=== PATIENT | male | born 1955 | race Caucasian/White ===

== ENCOUNTER 2017-08-29 10:31 | Outpatient (CLI) | payer BC ==
[2017-08-29 10:30] VITALS: BP 118/79
[~2017-08-29 10:31] MED LIST: FAMO40TA73 PO; HYDR-3965 PO
[2017-08-29 11:09] VITALS: BP 118/79
== END 2017-08-29 11:30 | disposition home or self-care (01) ==
LOC: ORTHO 10:31
PROVIDERS: ATTEND Nurse Practitioner Family
DX: S42.202A Unspecified fracture of upper end of left humerus, initial encounter for closed fracture (principal)
CPT/HCPCS: 99213

== ENCOUNTER 2017-10-10 09:37 | Outpatient (CLI) | payer BC ==
[2017-10-10 09:36] VITALS: BP 139/74
[~2017-10-10 09:37] MED LIST changes: -HYDR-3965 PO
== END 2017-10-10 10:05 | disposition home or self-care (01) ==
LOC: ORTHO 09:37
PROVIDERS: ATTEND Nurse Practitioner Family
DX: S42.212D Unspecified displaced fracture of surgical neck of left humerus, subsequent encounter for fracture with routine healing (principal); F17.210 Nicotine dependence, cigarettes, uncomplicated; F32.9 Major depressive disorder, single episode, unspecified; N40.0 Benign prostatic hyperplasia without lower urinary tract symptoms; Z88.6 Allergy status to analgesic agent; X58.XXXD Exposure to other specified factors, subsequent encounter
CPT/HCPCS: 73030

== ENCOUNTER 2017-11-07 09:03 | Outpatient (CLI) | payer BC ==
[2017-11-07 09:12] VITALS: BP 136/75
== END 2017-11-07 09:35 | disposition home or self-care (01) ==
LOC: ORTHO 09:03
PROVIDERS: ATTEND Nurse Practitioner Family
DX: S42.215D Unspecified nondisplaced fracture of surgical neck of left humerus, subsequent encounter for fracture with routine healing (principal); F17.210 Nicotine dependence, cigarettes, uncomplicated; F32.9 Major depressive disorder, single episode, unspecified; N40.0 Benign prostatic hyperplasia without lower urinary tract symptoms; F12.90 Cannabis use, unspecified, uncomplicated; Z88.6 Allergy status to analgesic agent; X58.XXXD Exposure to other specified factors, subsequent encounter
CPT/HCPCS: 73030; 99213

== ENCOUNTER 2017-12-12 08:26 | Outpatient (CLI) | payer BC | END 2017-12-12 08:45 | disposition home or self-care (01) | LOC: ORTHO 08:26 | PROVIDERS: ATTEND Nurse Practitioner Family | DX: S42.215D Unspecified nondisplaced fracture of surgical neck of left humerus, subsequent encounter for fracture with routine healing (principal); F17.210 Nicotine dependence, cigarettes, uncomplicated; F12.90 Cannabis use, unspecified, uncomplicated; F32.9 Major depressive disorder, single episode, unspecified; N40.0 Benign prostatic hyperplasia without lower urinary tract symptoms; Z88.6 Allergy status to analgesic agent; X58.XXXD Exposure to other specified factors, subsequent encounter | CPT/HCPCS: 73030 ==

== ENCOUNTER 2018-11-11 11:19 | Inpatient (IN) | payer MEDICARE, OTHER ==
[2018-11-11] VITALS (15 sets, daily range): BP systolic 145–188; BP diastolic 66–103
[~2018-11-11] VITALS: Ht 175.3 cm; Wt 67.2 kg
--- NOTE | 2018-11-11 11:24 | NUR ---
BIB RELATIVE WHO STATES THAT PATIENT WAS FOUND SITTING IN A CHAIR AT HOME, LETHARGY, UNRESPONSIVE-TEMP 96.3 R, RR 18, CHEST CLEAR, BP 146/84. INCONTINENT OF URINE ON ARRIVAL. BG 73. ANSWERS QUESTIONS BUT LETHARGIC. PALE. SKIN COOL AND DRY.
[2018-11-11] MEDS ORDERED: normal saline 1000ML IV soln IVB ONE (11:30)
[2018-11-11 12:05] LABS: BASOPHILS # (AUTO) 0.1 X10'3 (0-0.2); BASOPHILS % (AUTO) 0.5 % (0-1); EOSINOPHILS # (AUTO) 0.1 X10'3 (0-0.9); EOSINOPHILS % (AUTO) 0.8 % (0-6); HEMOGLOBIN 7.4 g/dl (14.0-17.9); LYMPHOCYTES # (AUTO) 1.1 X10'3 (1.1-4.8); LYMPHOCYTES % (AUTO) 8.8 % (21-51); MEAN CORPUSCULAR HEMOGLOBIN 32.5 PG (27.0-31.0); MEAN CORPUSCULAR HGB CONC 34.6 g/dL (33.0-36.5); MEAN CORPUSCULAR VOLUME 93.9 FL (78-98); MEAN PLATELET VOLUME 7.2 FL (7.4-10.4); MONOCYTES # (AUTO) 0.3 X10'3 (0-0.9); MONOCYTES % (AUTO) 2.1 % (2-12); NEUTROPHILS # (AUTO) 11.3 X10'3 (1.8-7.7); NEUTROPHILS % (AUTO) 87.8 % (42-75); PLATELET COUNT 271 X10'3 (140-440); RED BLOOD COUNT 2.27 X10'6 (4.70-6.10); WHITE BLOOD COUNT 12.8 X10'3 (4.5-11.0)
[2018-11-11] MEDS ORDERED: CefTRIAXone/D5W-Rocephin 1gm 50 ML IV ONE (12:10)
[2018-11-11] MEDS ORDERED: normal saline 1000ML IV soln IV ONE (12:10)
[2018-11-11 12:12] LABS: HEMATOCRIT 21.3 % (42.0-52.0)
[2018-11-11 12:20] LABS: PARTIAL THROMBOPLASTIN TIME 27 SECONDS (22-32); PROTHROMBIN TIME 10.2 SECONDS (9.0-12.0)
[2018-11-11 12:21] LABS: ALANINE AMINOTRANSFERASE 17 U/L (12-78); ALBUMIN 2.9 G/DL (3.4-5.0); ALBUMIN/GLOBULIN RATIO 0.9 (1.1-1.5); ALKALINE PHOSPHATASE 97 IU/L (46-116); ANION GAP 12 (8-16); ASPARTATE AMINO TRANSFERASE 17 U/L (10-37); BILIRUBIN,TOTAL 0.8 MG/DL (0.1-1.0); BLOOD UREA NITROGEN 19 MG/DL (7-18); BUN/CREATININE RATIO 13.4 (5.4-32.0); CALCIUM 8.6 MG/DL (8.5-10.1); CHLORIDE 102 MMOL/L (99-107); CREATININE 1.42 MG/DL (0.60-1.10); GLUCOSE 227 MG/DL (70-104); POTASSIUM 4.5 MMOL/L (3.5-5.1); SODIUM 135 MMOL/L (135-145); TOTAL CARBON DIOXIDE 21.1 MMOL/L (24-32); TOTAL PROTEIN 6.2 G/DL (6.4-8.2); eGFR 50 ML/MIN
[2018-11-11 12:22] LABS: AMMONIA < 10 UMOL/L (11-32)
[2018-11-11 12:24] LABS: ETHANOL < 0.010 GM/DL (0.0-0.010); TROPONIN I < 0.04 NG/ML (0.0-0.05)
[2018-11-11 12:39] LABS: LACTIC SEPSIS 4.5 MMOL/L (0.4-2.0)
[2018-11-11] MEDS ORDERED: ARIP10TA17 PO (13:57)
[2018-11-11] MEDS ORDERED: GABA-532 PO (13:57)
[2018-11-11] MEDS ORDERED: PRAM0.258 PO (13:57)
[2018-11-11] MEDS ORDERED: DULO60CA64 PO (13:57)
[2018-11-11] MEDS ORDERED: HYDR-3972 PO (13:57)
[2018-11-11] MEDS ORDERED: hydrALAZINE 20mg/ml inj. IV PRN (14:05)
[2018-11-11] MEDS ORDERED: fentaNYL/PF 50MCG/1 ML 2ML syringe IV PRN ×2 (14:05)
[2018-11-11] MEDS ORDERED: morphine 4 MG/ML inj SYRINge IV PRN ×2 (14:05)
[2018-11-11] MEDS ORDERED: rocuronium 10mg/ml inj IV ONE ×2 (14:05→14:14)
[2018-11-11] MEDS ORDERED: ondansetron/PF 4mg/2ml inj IV PRN ×2 (14:05→15:50)
[2018-11-11] MEDS ORDERED: labetalol 20mg/4ml (5mg/ml) syringe IV PRN (14:05)
[2018-11-11] MEDS ORDERED: sevoflurane 250ml liquid IH ONE (14:05)
[2018-11-11] MEDS ORDERED: ringers solution, lacted 1,000 ML IV SCH ×2 (14:05→15:50)
--- NOTE | 2018-11-11 14:06 | NUR ---
REPORT CALLED TO SURGERY AND RECOVERY ROOM. PATIENT LEAVING FOR SURGERY WITH SON AT THE BEDSIDE. IV PATENT AND INFUSING WELL.
[2018-11-11] MEDS ORDERED: ketamine 10mg/ml 20ml inj ONE (14:12)
[2018-11-11] MEDS ORDERED: fentaNYL/PF 50MCG/1 ML 2ML syringe ONE (14:13)
[2018-11-11] MEDS ORDERED: MIDAZolam 5mg/5ml vial ONE (14:14)
[2018-11-11] MEDS ORDERED: albumin (Human) 5% 250ml 250 ML IV ONE ×5 (14:19→15:19)
[2018-11-11 14:28] LABS: OCCULT BLOOD STOOL NEGATIVE (Neg)
[2018-11-11] MEDS ORDERED: cefotetan 2gm/isosm dext IVPB 50 ML IV ONE (14:56)
--- NOTE | 2018-11-11 15:45 | NUR ---
Received from OR via ICU BED , accompanied by Anesthesiologist ECHO and report given by Anesthesiolgist. PATIENT INTUBATED WITH TUBE AT 23 AT THE [facility].INTUBATED. MIDLINE ABDOMINAL DRESSING IS SPOTTED WITH BLOOD BUT CONTAINED IN DRESSING. CENTRAL LINE TO RIGHT SIDE OF NECK. FEMORAL ART LINE IN RIGHT GROIN. 20G PIV IN RIGHT AC. BUI CATH IN PLACE WITH DARK YARELY URINE PRESENT IN ATRIUM. PATIENT WITH CVP OF 13 AT THIS TIME. NGTUBE TO LEFT NARE WITH LOW INT SUCTION. Addendum: 11/11/18 at 1623 by Js Reyes RN, RN Amended: Links added.
[2018-11-11] MEDS ORDERED: propofol 1000mg/100ml bottle 100 ML IV PRN (15:50)
[2018-11-11 16:05] LABS: ABG HCO3 17.8 mmol/L (22.0-26.0); ABG OXYGEN SATURATION 98.7 % (95-98); ABG PCO2 (T) 37.5 mmHg (35.0-48.0); ABG PH (T) 7.295 (7.350-7.450); ABG PO2 (T) 243.4 mmHg (83-108); FMetHb 0.2 % (0.3-1.12); FO2Hb 97.5 % (94-100); MINUTE VOLUME 8 L/min; PEEP 5 cm H2O; RESPIRATORY RATE 10 b/min; RESPIRATORY RATE (OBSERVED) 10 b/min; TIDAL VOLUME 700 mL; TOTAL HEMOGLOBIN 9.7 G/dl (14.0-18.0)
[2018-11-11 16:06] LABS: ISTAT HGB 8.2 g/dl (14.0-18.0); ISTAT IONIZED CALCIUM 1.01 mmol/L (1.03-1.32); ISTAT K 4.3 mmol/L (3.5-5.1)
[2018-11-11 16:24] LABS: EOSINOPHILS % (AUTO) 0 % (0-6); LYMPHOCYTES # (AUTO) 0.3 X10'3 (1.1-4.8); LYMPHOCYTES % (AUTO) 2.8 % (21-51); MEAN CORPUSCULAR HEMOGLOBIN 32.1 PG (27.0-31.0); MONOCYTES # (AUTO) 0.8 X10'3 (0-0.9); MONOCYTES % (AUTO) 7.3 % (2-12)
[2018-11-11] MEDS: FENTANYL-0.9 % NACL/PF 100 ML IV PRN (16:25)
[2018-11-11 16:26] LABS: BASOPHILS % (AUTO) 0.2 % (0-1); HEMATOCRIT 27.2 % (42.0-52.0); HEMOGLOBIN 9.3 g/dl (14.0-17.9); MEAN CORPUSCULAR HGB CONC 34.3 g/dL (33.0-36.5); MEAN CORPUSCULAR VOLUME 93.5 FL (78-98); MEAN PLATELET VOLUME 7.4 FL (7.4-10.4); NEUTROPHILS # (AUTO) 9.9 X10'3 (1.8-7.7); NEUTROPHILS % (AUTO) 89.7 % (42-75); PLATELET COUNT 117 X10'3 (140-440); RED BLOOD COUNT 2.91 X10'6 (4.70-6.10); WHITE BLOOD COUNT 11.1 X10'3 (4.5-11.0)
[2018-11-11 16:33] LABS: TRIGLYCERIDES 59 MG/DL (20-135)
--- NOTE | 2018-11-11 16:35 | NUR ---
ALL CRITERIA FOR TRANSFER TO THE FLOOR HAS BEEN ACHIEVED. VSS. BED LOW, CALL LIGHT AND VS. SET IN PLACE. RN PRESENT TO ACCEPT CARE. PATIENT RESTING COMFORTABLY IN BED. BELONGINGS SENT WITH PATIENT. DRESSINGS CDI. ABDOMINAL DRESSING IS STILL SAME IT WAS IN RR UPON ARRIVAL. SPOTTY BUT CONTAINED IN DRESSING. ASSESSED DRESSING WITH MARIBEL ANGULO UPON ARRIVAL. 2 YELLOW COLORED RINGS GIVEN TO . DARK URINE PRESENT IN ATRIUM. CARE TURNED OVER TO KEV. Addendum: 11/11/18 at 1720 by Js Eng - MARIBEL LÓPEZ Amended: Links added.
[2018-11-11 16:38] LABS: PLATELET ESTIMATE DECREASED; TOTAL CELLS COUNTED 100
[2018-11-11 16:39] LABS: ANISOCYTOSIS 1+
--- NOTE | 2018-11-11 16:52 | NUR ---
no sputum sent per dr fisher Addendum: 11/11/18 at 1653 by Deborah Renae RT Amended: Links added.
--- NOTE | 2018-11-11 16:55 | NUR ---
Js Jha RN called report, patient on his way soon.;
[2018-11-11] MEDS: dextrose 5%-normal saline 1,000 ML IV SCH (18:00)
--- NOTE | 2018-11-11 18:19 | NUR ---
Problems reprioritized. Patient report given, questions answered & plan of care reviewed with Dianna Jha RN.
--- NOTE | 2018-11-11 18:30 | NUR ---
Patient in room ICU 2040. I have received report from Oanh LÓPEZ and had the opportunity to ask questions and assume patient care.
[2018-11-11] MEDS ORDERED: thiamine inj. 100 MG in normal saline 100ml IV soln 100 ML IV ONE (19:30)
[2018-11-11] MEDS ORDERED: LORazepam 2 mg/ml vial IV PRN (19:30)
[2018-11-11] MEDS ORDERED: haloperidol 5mg tablet PO PRN (19:30)
[2018-11-11] MEDS ORDERED: haloperidol lactate 5mg/ml inj IM PRN (19:30)
[2018-11-11] MEDS ORDERED: dextrose 50%-water 50ml dispensing syringe IV PRN ×2 (19:45)
[2018-11-11] MEDS ORDERED: insulin Lispro (HumaLOG) vial - multi-dose SQ SCH (19:45)
[2018-11-11] MEDS ORDERED: glucagon, human recombinant 1mg kit SUBCUT PRN (19:45)
[2018-11-11] MEDS ORDERED: dextrose ORAL solution 15 GM/59 ML bottle PO PRN ×2 (19:45)
[2018-11-11] MEDS ORDERED: MESSAGE TO PHARMACY PO ONE (19:45)
[2018-11-11] MEDS: duloxetine 30mg CAPSULE.DR PO SCH (20:00)
[2018-11-11] MEDS ORDERED: non-formulary drug (Duloxetine HCl 1 CAP) PO SCH (20:00)
[2018-11-11] MEDS: insulin glargine (Lantus) pen - multi-dose SQ SCH (20:02)
[2018-11-11 20:13] LABS: HEMOGLOBIN A1C 5.5 % (4.5-6.2)
[2018-11-11] MEDS: gabapentin 300mg capsule PO SCH (21:59)
[2018-11-11] MEDS: pramipexole 0.25mg tablet PO SCH (21:59)
[2018-11-11] MEDS: nicotine 21mg patch - 24 hr TD SCH (21:59)
[2018-11-12] VITALS (24 sets, daily range): BP systolic 98–166; BP diastolic 50–76
[2018-11-12] MEDS: dextrose 5%-normal saline 1,000 ML IV SCH ×3 (02:43→19:15)
[2018-11-12] MEDS: FENTANYL-0.9 % NACL/PF 100 ML IV PRN (03:42)
[2018-11-12 04:26] LABS: ABG BASE EXCESS -5.7 mmol/L (-2.0-3.0); ABG HCO3 17.3 mmol/L (22.0-26.0); ABG OXYGEN SATURATION 97.3 % (95-98); ABG PH (T) 7.428 (7.350-7.450); ABG PO2 (T) 109.1 mmHg (83-108); FCOHb 0.3 % (0.5-1.5); FMetHb 0.2 % (0.3-1.12); FO2Hb 96.8 % (94-100); MINUTE VOLUME 13 L/min; PATIENT TEMPERATURE 37.7; PEEP 5 cm H2O; RESPIRATORY RATE 14 b/min; RESPIRATORY RATE (OBSERVED) 19 b/min; TIDAL VOLUME 400 mL; TOTAL HEMOGLOBIN 10.4 G/dl (14.0-18.0)
[2018-11-12 05:04] LABS: ALANINE AMINOTRANSFERASE 30 U/L (12-78); ALBUMIN 2.4 G/DL (3.4-5.0); ALKALINE PHOSPHATASE 59 IU/L (46-116); AMYLASE 44 U/L (25-115); ANION GAP 9 (8-16); ASPARTATE AMINO TRANSFERASE 39 U/L (10-37); BILIRUBIN,TOTAL 0.4 MG/DL (0.1-1.0); BLOOD UREA NITROGEN 25 MG/DL (7-18); BUN/CREATININE RATIO 21.2 (5.4-32.0); CHLORIDE 110 MMOL/L (99-107); CREATININE 1.18 MG/DL (0.60-1.10); GLUCOSE 144 MG/DL (70-104); LIPASE < 50 U/L (73-393); MAGNESIUM 1.4 MG/DL (1.5-2.4); PHOSPHORUS 3.3 MG/DL (2.3-4.5); POTASSIUM 4.8 MMOL/L (3.5-5.1); SODIUM 138 MMOL/L (135-145); TOTAL CARBON DIOXIDE 19.3 MMOL/L (24-32); TOTAL PROTEIN 4.7 G/DL (6.4-8.2); eGFR 62 ML/MIN
[2018-11-12 05:08] LABS: BASOPHILS % (AUTO) 0.4 % (0-1); EOSINOPHILS % (AUTO) 0.3 % (0-6); HEMATOCRIT 29.4 % (42.0-52.0); HEMOGLOBIN 10.1 g/dl (14.0-17.9); LYMPHOCYTES # (AUTO) 1.6 X10'3 (1.1-4.8); LYMPHOCYTES % (AUTO) 16.6 % (21-51); MEAN CORPUSCULAR HEMOGLOBIN 31.7 PG (27.0-31.0); MEAN CORPUSCULAR HGB CONC 34.2 g/dL (33.0-36.5); MEAN CORPUSCULAR VOLUME 92.7 FL (78-98); MEAN PLATELET VOLUME 7.7 FL (7.4-10.4); MONOCYTES # (AUTO) 0.5 X10'3 (0-0.9); MONOCYTES % (AUTO) 5.1 % (2-12); NEUTROPHILS # (AUTO) 7.7 X10'3 (1.8-7.7); NEUTROPHILS % (AUTO) 77.6 % (42-75); PLATELET COUNT 151 X10'3 (140-440); RED BLOOD COUNT 3.17 X10'6 (4.70-6.10); RED CELL DISTRIBUTION WIDTH 14.2 % (11.5-14.5); WHITE BLOOD COUNT 9.9 X10'3 (4.5-11.0)
[2018-11-12 05:40] LABS: INR 1.1 INR; PROTHROMBIN TIME 10.9 SECONDS (9.0-12.0)
--- NOTE | 2018-11-12 06:30 | NUR ---
Patient in room ICU 2040. I have received report from MARIBEL Bustamante and had the opportunity to ask questions and assume patient care.
--- NOTE | 2018-11-12 06:40 | NUR ---
Problems reprioritized. Patient report given, questions answered & plan of care reviewed with Keri LÓPEZ.
[2018-11-12] MEDS: pramipexole 0.25mg tablet PO SCH ×3 (07:48→20:46)
[2018-11-12] MEDS: duloxetine 30mg CAPSULE.DR PO SCH ×2 (07:48→20:46)
[2018-11-12] MEDS: gabapentin 300mg capsule PO SCH ×2 (07:49→20:46)
[2018-11-12] MEDS: aripiprazole 5mg tablet PO SCH (07:49)
[2018-11-12] MEDS: nicotine 21mg patch - 24 hr TD SCH (07:50)
[2018-11-12] MEDS ORDERED: non-formulary drug (Aripiprazole 1 TAB) PO SCH (08:00)
[2018-11-12] MEDS ORDERED: folic acid inj. 2 MG, thiamine inj. 100 MG, MVI, adult No.4 with vit. K 10 ML in dextro... IV SCH ×4 (08:00)
[2018-11-12] MEDS ORDERED: CADD PCA waste documentation MC PRN (09:25)
[2018-11-12] MEDS ORDERED: naloxone 0.4 mg/ml inj IV PRN (09:25)
--- NOTE | 2018-11-12 09:25 | NUR ---
Patient refused his bath, stated he was washed down earlier on day shift, allowed me to do his kennedy care Addendum: 11/13/18 at 1308 by Prema Ko RN time was 1924 not 0256
--- NOTE | 2018-11-12 09:30 | NUR ---
Pt extubated to 4L NC and tolerated extremely well. RT at bedside with RN. Lots of oral secretions but patient had very strong cough and able to clear with help of oral suction. PT already talking answering all questions appropriately and understanding events and purpose of stay. Will continue to monitory closely.
--- NOTE | 2018-11-12 10:15 | NUR ---
Discussed patient during rounds. Asked about DVT prophylaxis and PPI, both of which he said we should hold on for 24 hours because of type of surgery. UR, resp, cardiac,neuro status all discussed. I reported possible mild to moderate ETOH history, banana bag hanging and asked about Magnesium to which he said we should replace. I reported NG tube still in nose and I will keep it there until pt tolerates clear liquids and surgeon states ok to take out. Etubation reported to go well. ok for ART line to come out. I also discussed the low grade temp but orders from DR Miller not to do antibiotics. states lets watch labs to see if WBC platelets and RBC change post splenectomy, do lactic and procal now, and continue IS and flutter to see if low grade temp resolves before we over treat.
[2018-11-12] MEDS ORDERED: potassium Cl 40MEQ/250ML bag 250 ML IV PRN ×2 (10:40)
[2018-11-12] MEDS ORDERED: magnesium 4gm in 100ml NS 100 ML IV PRN (10:40)
[2018-11-12] MEDS ORDERED: magnesium Cl slow-release 64mg tablet PO PRN (10:40)
[2018-11-12] MEDS ORDERED: potassium Cl 20 mEq SR tablet PO PRN ×2 (10:40)
[2018-11-12] MEDS ORDERED: magnesium 2GM in 50ml NS 50 ML IV PRN (10:40)
--- NOTE | 2018-11-12 12:30 | NUR ---
ART line taken out, pressure held at site, no bleeding, dressing with tegaderm placed.
--- NOTE | 2018-11-12 13:20 | NUR ---
Dr Miller at bedside and states okay for patient to go to surgical once lines are out and NG out. I stated will try on clear liquids before I pull it. Also I stated he's had a low grade fever since surgery but that I saw his note about no antibiotics and that we are watching closely providing IS and flutter education often. He states no need for ABX at this time, and to expect a big jump in WBC tomorrow because of change in pathophysiology since patient no longer has spleen.
[2018-11-12] MEDS: fentaNYL/PF 50MCG/1 ML 2ML syringe IV PRN ×3 (14:00→20:46)
--- NOTE | 2018-11-12 15:30 | NUR ---
NG tube taken out, pt tolerated very well.
--- NOTE | 2018-11-12 16:30 | NUR ---
Pt up to walk, ambulated about 100ft two person assist for line management, tolerated well, VS stable, no dizziness.
--- NOTE | 2018-11-12 17:30 | NUR ---
Pt transferred to 2014 CICU from 2040 ICU.
--- NOTE | 2018-11-12 17:35 | NUR ---
Pt began saying pain was significantly worse, appears to be grimacing and guarding, BP up to 170/74. Upon assessing abd his upper left quadrant is much more hard on palpation and he states that is where his pain has now moved. He states he's having just a slight difficulty breathing in his less chest. Sats 97%. Dressing taken down and appears stable, jesús intact, minor oozing at site appears old. H/H drawn for caution on suspected bleeding. Will call MD with results and ask for more pain medicine.
[2018-11-12 17:53] LABS: HEMOGLOBIN 10.5 g/dl (14.0-17.9); MEAN CORPUSCULAR HEMOGLOBIN 32.1 PG (27.0-31.0); MEAN CORPUSCULAR VOLUME 91.9 FL (78-98); MEAN PLATELET VOLUME 7.3 FL (7.4-10.4); PLATELET COUNT 177 X10'3 (140-440); RED BLOOD COUNT 3.26 X10'6 (4.70-6.10); RED CELL DISTRIBUTION WIDTH 14.6 % (11.5-14.5); WHITE BLOOD COUNT 12.1 X10'3 (4.5-11.0)
--- NOTE | 2018-11-12 18:24 | NUR ---
Problems reprioritized. Patient report given, questions answered & plan of care reviewed with MARIBEL Lloyd.
--- NOTE | 2018-11-12 18:46 | NUR ---
Patient in room CICU 2013. I have received report from Keri LÓPEZ and had the opportunity to ask questions and assume patient care. Patient laying in bed with eyes closed, bp 153/68 HR 94 sating 95% on 2L D5 1/2 running at 100ml/hr, vital signs stable will continue to monitor
[2018-11-12] MEDS: mineral oil/petrolatum ophthal oint EACHEYE SCH (20:00)
[2018-11-12] MEDS: insulin glargine (Lantus) pen - multi-dose SQ SCH (21:00)
[2018-11-13] VITALS (18 sets, daily range): BP systolic 117–162; BP diastolic 62–85
[2018-11-13] MEDS: mineral oil/petrolatum ophthal oint EACHEYE SCH (02:00)
[2018-11-13] MEDS: fentaNYL/PF 50MCG/1 ML 2ML syringe IV PRN ×2 (02:06→07:29)
[2018-11-13 03:05] LABS: BASOPHILS % (AUTO) 0.4 % (0-1); EOSINOPHILS # (AUTO) 0.3 X10'3 (0-0.9); EOSINOPHILS % (AUTO) 2.3 % (0-6); HEMATOCRIT 29.3 % (42.0-52.0); HEMOGLOBIN 9.9 g/dl (14.0-17.9); LYMPHOCYTES # (AUTO) 1.2 X10'3 (1.1-4.8); LYMPHOCYTES % (AUTO) 10.9 % (21-51); MEAN CORPUSCULAR HEMOGLOBIN 31.5 PG (27.0-31.0); MEAN CORPUSCULAR HGB CONC 33.8 g/dL (33.0-36.5); MEAN CORPUSCULAR VOLUME 93.2 FL (78-98); MEAN PLATELET VOLUME 7.4 FL (7.4-10.4); MONOCYTES # (AUTO) 0.6 X10'3 (0-0.9); NEUTROPHILS % (AUTO) 81.4 % (42-75); PLATELET COUNT 185 X10'3 (140-440); RED BLOOD COUNT 3.15 X10'6 (4.70-6.10); RED CELL DISTRIBUTION WIDTH 14.5 % (11.5-14.5); WHITE BLOOD COUNT 11.1 X10'3 (4.5-11.0)
[2018-11-13 03:10] LABS: INR 1.1 INR; PROTHROMBIN TIME 10.7 SECONDS (9.0-12.0)
[2018-11-13 03:13] LABS: ALANINE AMINOTRANSFERASE 25 U/L (12-78); ALBUMIN 2.3 G/DL (3.4-5.0); ALBUMIN/GLOBULIN RATIO 0.8 (1.1-1.5); ALKALINE PHOSPHATASE 80 IU/L (46-116); AMYLASE 35 U/L (25-115); ANION GAP 7 (8-16); ASPARTATE AMINO TRANSFERASE 44 U/L (10-37); BILIRUBIN,TOTAL 0.4 MG/DL (0.1-1.0); BLOOD UREA NITROGEN 15 MG/DL (7-18); CALCIUM 7.9 MG/DL (8.5-10.1); CHLORIDE 106 MMOL/L (99-107); CREATININE 0.88 MG/DL (0.60-1.10); GLUCOSE 117 MG/DL (70-104); LIPASE < 50 U/L (73-393); MAGNESIUM 1.9 MG/DL (1.5-2.4); PHOSPHORUS 2.2 MG/DL (2.3-4.5); POTASSIUM 4.1 MMOL/L (3.5-5.1); SODIUM 136 MMOL/L (135-145); TOTAL CARBON DIOXIDE 23.4 MMOL/L (24-32); TOTAL PROTEIN 5.3 G/DL (6.4-8.2); eGFR 87 ML/MIN
[2018-11-13] MEDS: dextrose 5%-normal saline 1,000 ML IV SCH (06:07)
[2018-11-13] MEDS: pramipexole 0.25mg tablet PO SCH ×3 (07:27→21:14)
[2018-11-13] MEDS: nicotine 21mg patch - 24 hr TD SCH (07:27)
[2018-11-13] MEDS: aripiprazole 5mg tablet PO SCH (07:27)
[2018-11-13] MEDS: duloxetine 30mg CAPSULE.DR PO SCH ×2 (07:28→21:14)
[2018-11-13] MEDS: gabapentin 300mg capsule PO SCH ×2 (07:28→21:14)
[2018-11-13] MEDS: K and/or MAG REPLACEMENT MC SCH (08:00)
[2018-11-13] MEDS: HYDROcodone/acetaminophen 10/325mg tab PO PRN ×2 (12:19→21:30)
--- NOTE | 2018-11-13 17:39 | NUR ---
Patient in room CICU 2013. I have received report from Prema LÓPEZ and had the opportunity to ask questions and assume patient care. Report that FC was taken out at 1000 with no urine output as of currently. Nurse states she will try and get him to void before coming to med/surg.
--- NOTE | 2018-11-13 17:59 | NUR ---
transfered to nursing floor with all of belongings, pt walked from room in ICU to elevator without problems, approximately 400 ft. report given to receiving nurse.
--- NOTE | 2018-11-13 17:59 | NUR ---
Patient arrived to the unit, A&Ox4. Oriented to the room. Call light within reach. CLAIMS ANALYST states that patient has voided and she will chart it in I&Os. White board updated.
--- NOTE | 2018-11-13 18:05 | NUR ---
Problems reprioritized. Patient report given, questions answered & plan of care reviewed with Edgar LÓPEZ.
--- NOTE | 2018-11-13 18:06 | NUR ---
Patient in room OMERO 358. I have received report from MARIBEL Hart and had the opportunity to ask questions and assume patient care.
[2018-11-13] MEDS ORDERED: LORazepam 1 MG tablet PO PRN (19:30)
[2018-11-13] MEDS ORDERED: LORazepam 2 mg/ml vial IV PRN (19:30)
[2018-11-13] MEDS: insulin glargine (Lantus) pen - multi-dose SQ SCH (21:00)
[2018-11-14] VITALS: BP 121/52
[2018-11-14] MEDS: HYDROcodone/acetaminophen 10/325mg tab PO PRN ×2 (03:12→20:04)
[2018-11-14 05:13] LABS: BASOPHILS % (AUTO) 0.4 % (0-1); EOSINOPHILS # (AUTO) 0.5 X10'3 (0-0.9); EOSINOPHILS % (AUTO) 4.2 % (0-6); HEMATOCRIT 27.4 % (42.0-52.0); HEMOGLOBIN 9.3 g/dl (14.0-17.9); LYMPHOCYTES # (AUTO) 1.3 X10'3 (1.1-4.8); LYMPHOCYTES % (AUTO) 11.3 % (21-51); MEAN CORPUSCULAR HEMOGLOBIN 31.4 PG (27.0-31.0); MEAN CORPUSCULAR VOLUME 92.4 FL (78-98); MEAN PLATELET VOLUME 7.1 FL (7.4-10.4); MONOCYTES # (AUTO) 0.6 X10'3 (0-0.9); MONOCYTES % (AUTO) 5.3 % (2-12); NEUTROPHILS # (AUTO) 8.8 X10'3 (1.8-7.7); NEUTROPHILS % (AUTO) 78.8 % (42-75); PLATELET COUNT 214 X10'3 (140-440); RED BLOOD COUNT 2.96 X10'6 (4.70-6.10); RED CELL DISTRIBUTION WIDTH 14.2 % (11.5-14.5); WHITE BLOOD COUNT 11.2 X10'3 (4.5-11.0)
[2018-11-14 05:22] LABS: ALANINE AMINOTRANSFERASE 27 U/L (12-78); ALBUMIN 2.1 G/DL (3.4-5.0); ALBUMIN/GLOBULIN RATIO 0.7 (1.1-1.5); ALKALINE PHOSPHATASE 81 IU/L (46-116); AMYLASE 29 U/L (25-115); ANION GAP 7 (8-16); ASPARTATE AMINO TRANSFERASE 42 U/L (10-37); BILIRUBIN,TOTAL 0.3 MG/DL (0.1-1.0); BLOOD UREA NITROGEN 15 MG/DL (7-18); BUN/CREATININE RATIO 17.6 (5.4-32.0); CALCIUM 8.6 MG/DL (8.5-10.1); CHLORIDE 104 MMOL/L (99-107); CREATININE 0.85 MG/DL (0.60-1.10); GLUCOSE 104 MG/DL (70-104); LIPASE < 50 U/L (73-393); MAGNESIUM 1.7 MG/DL (1.5-2.4); PHOSPHORUS 2.9 MG/DL (2.3-4.5); POTASSIUM 3.9 MMOL/L (3.5-5.1); SODIUM 136 MMOL/L (135-145); TOTAL CARBON DIOXIDE 24.9 MMOL/L (24-32); TOTAL PROTEIN 5.3 G/DL (6.4-8.2); eGFR 90 ML/MIN
[2018-11-14 05:30] LABS: INR 1.9 INR
[2018-11-14 06:30] VITALS: BP 134/62
--- NOTE | 2018-11-14 06:30 | NUR ---
Patient in room OMERO 358. I have received report from MARIBEL Hernández and had the opportunity to ask questions and assume patient care.
--- NOTE | 2018-11-14 06:31 | NUR ---
Problems reprioritized. Patient report given, questions answered & plan of care reviewed with MARIBEL Roman.
[2018-11-14] MEDS: K and/or MAG REPLACEMENT MC SCH (07:16)
[2018-11-14] MEDS: multivitamins, therapeutics tablet PO SCH (09:53)
[2018-11-14] MEDS: aripiprazole 5mg tablet PO SCH (09:53)
[2018-11-14] MEDS: pramipexole 0.25mg tablet PO SCH ×3 (09:54→20:04)
[2018-11-14] MEDS: gabapentin 300mg capsule PO SCH ×2 (09:54→20:05)
[2018-11-14] MEDS: nicotine 21mg patch - 24 hr TD SCH (09:54)
[2018-11-14] MEDS: thiamine 100mg tablet PO SCH (09:54)
[2018-11-14] MEDS: folic acid 1mg tablet PO SCH (09:54)
[2018-11-14] MEDS: duloxetine 30mg CAPSULE.DR PO SCH ×2 (09:56→20:05)
[2018-11-14 11:00] VITALS: BP 111/63
[2018-11-14] MEDS ORDERED: pneumococcal 23-VAL P-sac vacc 25 mcg/0.5ml vial IMVAC ONE (12:15)
--- NOTE | 2018-11-14 15:15 | NUR ---
Problems reprioritized. Patient report given, questions answered & plan of care reviewed with Ashley Ramirez RN.
--- NOTE | 2018-11-14 18:30 | NUR ---
Patient in room OMERO 360. I have received report from GILLIAN LÓPEZ and had the opportunity to ask questions and assume patient care.
[2018-11-14 20:00] VITALS: BP 126/65
[2018-11-14] MEDS: insulin glargine (Lantus) pen - multi-dose SQ SCH (20:07)
[2018-11-15] VITALS (7 sets, daily range): BP systolic 105–144; BP diastolic 45–71
--- NOTE | 2018-11-15 00:30 | NUR ---
PATIENT WENT INTO A-FIB FROM SINUS RHYTHM VITAL SIGNS TAKEN AND EKG DONE, CALLED TO DR. NEWMAN WITH ORDER TO TRANSFER PATIENT TO TELEMETRY.
--- NOTE | 2018-11-15 00:55 | NUR ---
PATIENT TRANSFERRED TO TELEMETRY PER MD'S ORDER, BELONGINGS ACCOUNTED FOR.
--- NOTE | 2018-11-15 01:00 | NUR ---
RECEIVED PT FROM SG, VIA . REPORT RECEIVED FROM ROMAIN LÓPEZ. PT VERY CALM, COMFORTABLE. DENIES ANY DISCOMFORT. MD NEWMAN CALLED. ORDERS GIVEN. PHYSICAL ASSESSMENT DONE. AGREE WITH PRIOR ASSESSMENT. MEDS GIVEN. LABS DRAWN.
[2018-11-15] MEDS ORDERED: metoprolol tartrate 1mg/ml inj IV PRN (01:10)
[2018-11-15] MEDS ORDERED: metoprolol tartrate 12.5mg (1/2 tablet) PO SCH (01:10)
[2018-11-15] MEDS: enoxaparin 60mg/0.6ml syringe SUBCUT SCH ×2 (01:34→13:28)
[2018-11-15 01:55] LABS: BASOPHILS # (AUTO) 0.1 X10'3 (0-0.2); BASOPHILS % (AUTO) 1.4 % (0-1); EOSINOPHILS # (AUTO) 0.6 X10'3 (0-0.9); EOSINOPHILS % (AUTO) 6.2 % (0-6); HEMATOCRIT 32.3 % (42.0-52.0); LYMPHOCYTES # (AUTO) 1.4 X10'3 (1.1-4.8); LYMPHOCYTES % (AUTO) 14.7 % (21-51); MEAN CORPUSCULAR HEMOGLOBIN 31.8 PG (27.0-31.0); MEAN CORPUSCULAR VOLUME 93.3 FL (78-98); MEAN PLATELET VOLUME 7.5 FL (7.4-10.4); MONOCYTES # (AUTO) 0.8 X10'3 (0-0.9); MONOCYTES % (AUTO) 8.4 % (2-12); NEUTROPHILS # (AUTO) 6.8 X10'3 (1.8-7.7); NEUTROPHILS % (AUTO) 69.3 % (42-75); PLATELET COUNT 301 X10'3 (140-440); RED BLOOD COUNT 3.46 X10'6 (4.70-6.10); WHITE BLOOD COUNT 9.7 X10'3 (4.5-11.0)
[2018-11-15 02:47] LABS: ALANINE AMINOTRANSFERASE 32 U/L (12-78); ALBUMIN 2.4 G/DL (3.4-5.0); ALBUMIN/GLOBULIN RATIO 0.7 (1.1-1.5); ALKALINE PHOSPHATASE 91 IU/L (46-116); AMYLASE 57 U/L (25-115); ANION GAP 12 (8-16); ASPARTATE AMINO TRANSFERASE 48 U/L (10-37); BILIRUBIN,TOTAL 0.5 MG/DL (0.1-1.0); BLOOD UREA NITROGEN 13 MG/DL (7-18); CALCIUM 9.1 MG/DL (8.5-10.1); CHLORIDE 103 MMOL/L (99-107); CREATININE 0.93 MG/DL (0.60-1.10); GLUCOSE 90 MG/DL (70-104); LIPASE 242 U/L (73-393); MAGNESIUM 1.7 MG/DL (1.5-2.4); PHOSPHORUS 3.4 MG/DL (2.3-4.5); POTASSIUM 3.8 MMOL/L (3.5-5.1); SODIUM 139 MMOL/L (135-145); TOTAL CARBON DIOXIDE 23.7 MMOL/L (24-32); eGFR 82 ML/MIN
--- NOTE | 2018-11-15 06:30 | NUR ---
Patient in room PCU 3013. I have received report from Sylvia Nix RN and had the opportunity to ask questions and assume patient care. Patient awake and resting in bed. In no acute distress. HR 118. Will continue to monitor.
[2018-11-15 06:36] LABS: ALBUMIN 2.1 G/DL (3.4-5.0); ANION GAP 7 (8-16); BLOOD UREA NITROGEN 12 MG/DL (7-18); BUN/CREATININE RATIO 13.3 (5.4-32.0); CALCIUM 8.7 MG/DL (8.5-10.1); CHLORIDE 104 MMOL/L (99-107); GLUCOSE 92 MG/DL (70-104); POTASSIUM 3.8 MMOL/L (3.5-5.1); SODIUM 138 MMOL/L (135-145); TOTAL CARBON DIOXIDE 27.4 MMOL/L (24-32); eGFR 85 ML/MIN
--- NOTE | 2018-11-15 06:36 | NUR ---
Patient in room PCU 3013B. I have received report from Boyd LÓPEZ and had the opportunity to ask questions and assume patient care.
[2018-11-15] MEDS: nicotine 21mg patch - 24 hr TD SCH (07:26)
[2018-11-15] MEDS: aripiprazole 5mg tablet PO SCH (07:26)
[2018-11-15] MEDS: duloxetine 30mg CAPSULE.DR PO SCH ×2 (07:27→20:15)
[2018-11-15] MEDS: gabapentin 300mg capsule PO SCH ×2 (07:27→20:17)
[2018-11-15] MEDS: metoprolol tartrate 12.5mg (1/2 tablet) PO SCH ×2 (07:27→20:14)
[2018-11-15] MEDS: pramipexole 0.25mg tablet PO SCH ×3 (07:27→20:15)
[2018-11-15] MEDS: multivitamins, therapeutics tablet PO SCH (07:28)
[2018-11-15] MEDS: folic acid 1mg tablet PO SCH (07:28)
[2018-11-15] MEDS: thiamine 100mg tablet PO SCH (07:28)
[2018-11-15] MEDS: K and/or MAG REPLACEMENT MC SCH (08:00)
--- NOTE | 2018-11-15 08:30 | NUR ---
Patient converted from a-fib back into sinus rhythm. MD notified by sight effects specialist
[2018-11-15] MEDS ORDERED: magnesium hydroxide 30ml (MOM) UD suspension PO PRN (08:45)
[2018-11-15] MEDS: HYDROcodone/acetaminophen 10/325mg tab PO PRN ×2 (09:02→20:17)
--- NOTE | 2018-11-15 18:14 | NUR ---
Problems reprioritized. Patient report given, questions answered & plan of care reviewed with Juan Jose LÓPEZ and Emily LÓPEZ.
--- NOTE | 2018-11-15 18:16 | NUR ---
Problems reprioritized. Patient report given, questions answered & plan of care reviewed with Julianne LÓPEZ.
--- NOTE | 2018-11-15 18:35 | NUR ---
Patient in room PCU 3013B. I have received report from TEZ RN AND PURA RN and had the opportunity to ask questions and assume patient care. PATIENT IS SL AND IS STABLE AT THIS TIME. WILL CONTINUE TO MONITOR CLOSELY.
[2018-11-15] MEDS ORDERED: LORazepam 2 mg/ml vial IV PRN (19:30)
[2018-11-15] MEDS ORDERED: LORazepam 1 MG tablet PO PRN (19:30)
[2018-11-16] MEDS: enoxaparin 60mg/0.6ml syringe SUBCUT SCH (02:23)
[2018-11-16 03:00] VITALS: BP 125/53
[2018-11-16 06:00] VITALS: BP 109/44
[2018-11-16 06:14] LABS: BASOPHILS # (AUTO) 0.1 X10'3 (0-0.2); BASOPHILS % (AUTO) 1.3 % (0-1); EOSINOPHILS # (AUTO) 0.6 X10'3 (0-0.9); EOSINOPHILS % (AUTO) 6.7 % (0-6); HEMATOCRIT 28.5 % (42.0-52.0); HEMOGLOBIN 9.8 g/dl (14.0-17.9); LYMPHOCYTES # (AUTO) 2.1 X10'3 (1.1-4.8); LYMPHOCYTES % (AUTO) 22.1 % (21-51); MEAN CORPUSCULAR HEMOGLOBIN 32.3 PG (27.0-31.0); MEAN CORPUSCULAR HGB CONC 34.5 g/dL (33.0-36.5); MEAN CORPUSCULAR VOLUME 93.7 FL (78-98); MEAN PLATELET VOLUME 7.3 FL (7.4-10.4); MONOCYTES % (AUTO) 10.3 % (2-12); NEUTROPHILS # (AUTO) 5.7 X10'3 (1.8-7.7); NEUTROPHILS % (AUTO) 59.6 % (42-75); PLATELET COUNT 389 X10'3 (140-440); RED BLOOD COUNT 3.04 X10'6 (4.70-6.10); RED CELL DISTRIBUTION WIDTH 13.7 % (11.5-14.5); WHITE BLOOD COUNT 9.5 X10'3 (4.5-11.0)
--- NOTE | 2018-11-16 06:26 | NUR ---
[place]rientee documentation: I have reviewed and agree with all interventions, assessments performed and documented by Cortez LÓPEZ. [place]ee Medication Administration: For this medication-pass time frame, all medication were reviewed, dispensed, administered and documented per hospital policy by Cortez LÓPEZ.
--- NOTE | 2018-11-16 06:31 | NUR ---
Patient in room PCU 3013B. I have received report from Juan Jose LÓPEZ and had the opportunity to ask questions and assume patient care.
--- NOTE | 2018-11-16 06:33 | NUR ---
Patient in room PCU 3013. I have received report from Juan Jose/Emily LÓPEZ and had the opportunity to ask questions and assume patient care.
[2018-11-16 06:35] LABS: ALANINE AMINOTRANSFERASE 27 U/L (12-78); ALBUMIN 2.3 G/DL (3.4-5.0); ALBUMIN/GLOBULIN RATIO 0.7 (1.1-1.5); ALKALINE PHOSPHATASE 80 IU/L (46-116); AMYLASE 39 U/L (25-115); ANION GAP 8 (8-16); ASPARTATE AMINO TRANSFERASE 30 U/L (10-37); BILIRUBIN,TOTAL 0.4 MG/DL (0.1-1.0); BLOOD UREA NITROGEN 12 MG/DL (7-18); CALCIUM 8.7 MG/DL (8.5-10.1); CHLORIDE 105 MMOL/L (99-107); GLUCOSE 90 MG/DL (70-104); LIPASE 71 U/L (73-393); MAGNESIUM 1.8 MG/DL (1.5-2.4); PHOSPHORUS 3.6 MG/DL (2.3-4.5); POTASSIUM 4.3 MMOL/L (3.5-5.1); SODIUM 141 MMOL/L (135-145); TOTAL CARBON DIOXIDE 28.2 MMOL/L (24-32); TOTAL PROTEIN 5.6 G/DL (6.4-8.2); eGFR 75 ML/MIN
[2018-11-16] MEDS: nicotine 21mg patch - 24 hr TD SCH (08:21)
[2018-11-16] MEDS: HYDROcodone/acetaminophen 10/325mg tab PO PRN (08:22)
[2018-11-16] MEDS: folic acid 1mg tablet PO SCH (08:22)
[2018-11-16] MEDS: gabapentin 300mg capsule PO SCH (08:22)
[2018-11-16] MEDS: aripiprazole 5mg tablet PO SCH (08:22)
[2018-11-16] MEDS: duloxetine 30mg CAPSULE.DR PO SCH (08:23)
[2018-11-16] MEDS: metoprolol tartrate 12.5mg (1/2 tablet) PO SCH (08:23)
[2018-11-16] MEDS: thiamine 100mg tablet PO SCH (08:23)
[2018-11-16] MEDS: multivitamins, therapeutics tablet PO SCH (08:23)
[2018-11-16] MEDS: pramipexole 0.25mg tablet PO SCH (08:23)
[2018-11-16] MEDS ORDERED: pneumococcal 23-VAL P-sac vacc 25 mcg/0.5ml vial IMVAC ONE (10:30)
[2018-11-16] MEDS ORDERED: haemoph B poly conj-tet tox/PF 10mcg/0.5ml vial IMVAC ONE ×2 (10:30→11:30)
[2018-11-16 11:00] VITALS: BP 134/69
--- NOTE | 2018-11-16 12:08 | NUR ---
Initial: Pt s/p emergency splenectomy for rupture. Advanced to regular diet w/ 75% avg PO meals meeting needs. Hx T2DM but A1C 5.5. LBM 11/15. On thiamin/folic/MVI for heavy etoh hx. No nutrition concerns at this time. Rec: 1. continue regular diet 2. thiamin, folic, MVI for etoh hx 3. wt per rx Addendum: 11/16/18 at [address] Amended: Links added.
[2018-11-16] MEDS ORDERED: mening vac A,C,Y,W-135 dip/PF 4 mcg/0.5 ml vaccine IMVAC ONE (12:30)
--- NOTE | 2018-11-16 13:46 | NUR ---
Paged Dr. Wadsworth: PAGER ID: [phone] MESSAGE: Latonya U [id number] RE: Daniel Perdomo [phone]. Patient has received all 3 vax that you ordered. D/C orders need to be finalized. Thank you so much Dr. Wadsworth.
[2018-11-16 15:00] VITALS: BP 137/68
--- NOTE | 2018-11-16 16:30 | NUR ---
Patient stable for discharge per MD orders. All discharge instructions reviewed and all questions answered. Patient to follow up with PCP and also with Dr. Miller. Dr. Miller appointment 11/19 999. Patient educated on dressing change for surgical wound per instructions received from Dr. Miller office staff. PIV discontinued and cannula intact. Telemetry monitoring discontinued. All patient belongings sent in private vehicle to home.
== END 2018-11-16 16:30 | disposition home or self-care (01) | DRG 799 ==
LOC: ER 11:19 → ICU 2S 16:41 → CMPBEDREQ 20:04 → CICU 2S 11-12 17:20 → SUR 3N 11-13 17:51 → PCU 3S 11-15 01:06
PROVIDERS: ADMIT Surgery; ATTEND Surgery
PROC: 5A1935Z Respiratory Ventilation, Less than 24 Consecutive Hours (ICD-10-PCS; 2018-11-11)
PROC: 30233N1 Transfusion of Nonautologous Red Blood Cells into Peripheral Vein, Percutaneous Approach (ICD-10-PCS; 2018-11-11)
PROC: 07TP0ZZ Resection of Spleen, Open Approach (ICD-10-PCS; principal; 2018-11-11 14:10)
PROC: 3E0234Z Introduction of Serum, Toxoid and Vaccine into Muscle, Percutaneous Approach (ICD-10-PCS; 2018-11-16)
DX: S36.09XA Other injury of spleen, initial encounter (principal); J96.00 Acute respiratory failure, unspecified whether with hypoxia or hypercapnia; G93.41 Metabolic encephalopathy; D62 Acute posthemorrhagic anemia; F12.90 Cannabis use, unspecified, uncomplicated; F17.210 Nicotine dependence, cigarettes, uncomplicated; E11.65 Type 2 diabetes mellitus with hyperglycemia; G89.4 Chronic pain syndrome; I48.0 Paroxysmal atrial fibrillation; X58.XXXA Exposure to other specified factors, initial encounter; Y93.89 Activity, other specified; Y92.89 Other specified places as the place of occurrence of the external cause; Y99.8 Other external cause status; Z23 Encounter for immunization
CPT/HCPCS: 36415; 36600; 70450; 71045; 71250; 72125; 74176; 80047; 80048; 80053; 80320; 82140; 82150; 82272; 82803; 82948; 83036; 83605; 83690; 83735; 84100; 84145; 84478; 84484; 85018; 85025; 85027; 85610; 85730; 86885; 86900; 86901; 86920; 87040; 87070; 88305; 90732; 93005; 94002; 94003; 94668; 94760; 96365; 97116; 97162; 99285; A7000; C1758; G0378; J0696; J1644; J1650; J1815; J2250; J2704; J3010; J3411; J3475; J3490; J7030; J7042; J7060; J7120; P9016; P9045

== ENCOUNTER 2021-03-30 13:20 | Inpatient (IN) | payer BC, MEDICARE ==
[~2021-03-30] VITALS: Ht 177.8 cm; Wt 65.6 kg
[~2021-03-30 13:20] MED LIST changes: +ARIP10TA57 PO; +DOBUTamine/D5W 500mg/250ml premix IV ONE; +DULO60CA65 PO; -FAMO40TA73 PO; +GABA-532 PO; +HYDR-3972 PO; +PRAM0.258 PO
[2021-03-30 13:40] LABS: BASOPHILS # (AUTO) 0.1 X10'3 (0-0.2); BASOPHILS % (AUTO) 1.2 % (0-1); EOSINOPHILS # (AUTO) 0.5 X10'3 (0-0.9); HEMATOCRIT 40.5 % (42.0-52.0); HEMOGLOBIN 13.7 g/dl (14.0-17.9); LYMPHOCYTES # (AUTO) 3.4 X10'3 (1.1-4.8); LYMPHOCYTES % (AUTO) 35.5 % (21-51); MEAN CORPUSCULAR HEMOGLOBIN 32.8 PG (27.0-31.0); MEAN CORPUSCULAR VOLUME 96.6 FL (78-98); MEAN PLATELET VOLUME 6.5 FL (7.4-10.4); MONOCYTES # (AUTO) 1.1 X10'3 (0-0.9); MONOCYTES % (AUTO) 11.8 % (2-12); NEUTROPHILS # (AUTO) 4.4 X10'3 (1.8-7.7); NEUTROPHILS % (AUTO) 46.5 % (42-75); PLATELET COUNT 327 X10'3 (140-440); RED BLOOD COUNT 4.19 X10'6 (4.70-6.10); RED CELL DISTRIBUTION WIDTH 13.5 % (11.5-14.5); WHITE BLOOD COUNT 9.5 X10'3 (4.5-11.0)
[2021-03-30] MEDS ORDERED: atropine 1 MG/1 ML vial IV ONE (13:50)
[2021-03-30] MEDS ORDERED: atropine 0.1mg/ml 10ml syringe IV ONE (13:55)
[2021-03-30] MEDS ORDERED: DOBUTamine-DoBUTrex 500mg/D5W 250 ML IV ONE (13:55)
[2021-03-30 13:59] LABS: ALANINE AMINOTRANSFERASE 18 U/L (12-78); ALBUMIN 3.4 G/DL (3.4-5.0); ALBUMIN/GLOBULIN RATIO 1.1 (1.1-1.5); ALKALINE PHOSPHATASE 97 IU/L (46-116); ANION GAP 10 (8-16); ASPARTATE AMINO TRANSFERASE 13 U/L (10-37); BILIRUBIN,TOTAL 0.4 MG/DL (0.1-1.0); BLOOD UREA NITROGEN 22 MG/DL (7-18); CALCIUM 7.9 MG/DL (8.5-10.1); CHLORIDE 105 MMOL/L (99-107); CREATININE 1.69 MG/DL (0.60-1.10); GLUCOSE 84 MG/DL (70-104); POTASSIUM 4.7 MMOL/L (3.5-5.1); SODIUM 139 MMOL/L (135-145); TOTAL CARBON DIOXIDE 23.8 MMOL/L (24-32); TOTAL PROTEIN 6.6 G/DL (6.4-8.2); eGFR 41 ML/MIN
[2021-03-30] MEDS ORDERED: magnesium 2GM in 50ml NS 50 ML IV ONE (14:00)
[2021-03-30] MEDS ORDERED: sodium bicarbonate (8.4%) inj. 1 MEQ/ML ML IV ONE (14:00)
--- NOTE | 2021-03-30 14:02 | NUR ---
RELIEVING RN FOR BREAK, PT IS RESTING QUIETLY ON GURNEY, RESP EVEN AND UNLABORED, GAVE ATROPINE PER ORDER, HR INCREASED FROM 29 TO 53
--- NOTE | 2021-03-30 14:10 | NUR ---
DR HUBBARD AND DR ANDERSON AT BEDSIDE TO EVALUATE PT--GAVE VERBAL ORDER TO HOLD BICARB AND DOBUTAMINE GTT FOR NOW
[2021-03-30] MEDS ORDERED: glucagon, human recombinant 5 MG in normal saline 100ml IV soln 100 ML IV ONE ×2 (14:15)
[2021-03-30] MEDS ORDERED: glucagon, human recombinant 1mg kit IV ONE (14:30)
[2021-03-30 14:39] LABS: MAGNESIUM 1.8 MG/DL (1.5-2.4)
[2021-03-30 14:46] LABS: PARTIAL THROMBOPLASTIN TIME 41 SECONDS (22-32)
--- NOTE | 2021-03-30 15:35 | NUR ---
DOBUTAMINE INFUSING. HR NOT RISING ABOVE 30'S WITH PAUSES OF UP TO 4 SECONDS. MD AND PA AWARE. GTT TO BE SWITCHED TO DOPAMINE.
[2021-03-30] MEDS ORDERED: enoxaparin 100mg/ml syringe SUBCUT ONE (15:40)
[2021-03-30] MEDS ORDERED: DOPamine 400mg/D5W 250ml 250 ML IV SCH ×4 (15:40→17:17)
[2021-03-30] MEDS ORDERED: magnesium hydroxide 30ml (MOM) UD suspension PO PRN ×2 (17:05→17:10)
[2021-03-30] MEDS ORDERED: mag hydrox/Alum hydrox/simeth 30ml oral suspension PO PRN ×2 (17:05→17:10)
[2021-03-30] MEDS ORDERED: acetaminophen 325mg tablet PO PRN ×2 (17:05→17:10)
[2021-03-30] MEDS ORDERED: ondansetron/PF 4mg/2ml inj IV PRN ×2 (17:05→17:10)
[2021-03-30] MEDS ORDERED: BUPR-317 PO (17:36)
[2021-03-30] MEDS ORDERED: FLEC100T35 PO (17:40)
[2021-03-30] MEDS ORDERED: METO25TA6 PO (17:42)
[2021-03-30] MEDS ORDERED: FAMO40TA87 PO (17:42)
[2021-03-30] MEDS ORDERED: CALC-157 PO (17:46)
[2021-03-30] MEDS ORDERED: CALC500T63 PO (17:46)
[2021-03-30] MEDS ORDERED: CHOL100025 PO (17:47)
[2021-03-30] MEDS ORDERED: TRAM50TA2 PO (17:48)
[2021-03-30] MEDS ORDERED: ACET325T57 PO (17:50)
[2021-03-30] MEDS: normal saline 1000ml 1,000 ML IV SCH (17:55)
[2021-03-30] MEDS ORDERED: WARF-65 PO (17:56)
[2021-03-30] MEDS ORDERED: NICO-687 TOP (17:56)
[2021-03-30 19:05] VITALS: BP 120/54
[2021-03-30 20:00] VITALS: BP_SYST 114; BP_SYST 134; BP_SYST 161; BP_DIAS 51; BP_DIAS 54; BP_DIAS 59
[2021-03-30] MEDS ORDERED: docusate sod 100mg capsule PO SCH (20:00)
[2021-03-30] MEDS: docusate sod 100mg capsule PO SCH (20:15)
[2021-03-30 22:00] VITALS: BP 138/66
[2021-03-31] VITALS (13 sets, daily range): BP systolic 108–160; BP diastolic 41–121
[2021-03-31 01:53] LABS: BASOPHILS # (AUTO) 0.1 X10'3 (0-0.2); BASOPHILS % (AUTO) 1.1 % (0-1); EOSINOPHILS # (AUTO) 0.3 X10'3 (0-0.9); EOSINOPHILS % (AUTO) 2.9 % (0-6); HEMATOCRIT 44.4 % (42.0-52.0); HEMOGLOBIN 15.1 g/dl (14.0-17.9); LYMPHOCYTES # (AUTO) 2.8 X10'3 (1.1-4.8); LYMPHOCYTES % (AUTO) 24.4 % (21-51); MEAN CORPUSCULAR HEMOGLOBIN 32.9 PG (27.0-31.0); MEAN CORPUSCULAR HGB CONC 33.9 g/dL (33.0-36.5); MEAN CORPUSCULAR VOLUME 97.3 FL (78-98); MEAN PLATELET VOLUME 6.8 FL (7.4-10.4); MONOCYTES # (AUTO) 1.3 X10'3 (0-0.9); MONOCYTES % (AUTO) 11.2 % (2-12); NEUTROPHILS % (AUTO) 60.4 % (42-75); PLATELET COUNT 355 X10'3 (140-440); RED BLOOD COUNT 4.57 X10'6 (4.70-6.10); RED CELL DISTRIBUTION WIDTH 13.5 % (11.5-14.5); WHITE BLOOD COUNT 11.6 X10'3 (4.5-11.0)
[2021-03-31 02:19] LABS: ALBUMIN 3.6 G/DL (3.4-5.0); ANION GAP 10 (8-16); BLOOD UREA NITROGEN 19 MG/DL (7-18); BUN/CREATININE RATIO 13.4 (5.4-32.0); CALCIUM 8.7 MG/DL (8.5-10.1); CHLORIDE 102 MMOL/L (99-107); CREATININE 1.42 MG/DL (0.60-1.10); GLUCOSE 104 MG/DL (70-104); POTASSIUM 4.4 MMOL/L (3.5-5.1); SODIUM 139 MMOL/L (135-145); TOTAL CARBON DIOXIDE 27.5 MMOL/L (24-32); eGFR 50 ML/MIN
--- NOTE | 2021-03-31 05:53 | NUR ---
Paged Dr. Vila. PAGER ID: [phone] MESSAGE: Pt Daniel Perdomo 65 M (Rm [id number] ) Dx: Bradycardia is on a Heart Healthy Diet. Can we also put him on minced moist diet as pt doesn't have much teeth and no denture. Thanks! ..MARIBEL Luther x [phone]
--- NOTE | 2021-03-31 06:23 | NUR ---
Problems reprioritized. Patient report given, questions answered & plan of care reviewed with MARIBEL Reese.
--- NOTE | 2021-03-31 06:44 | NUR ---
Page to Dr. Vila. HR 30s BP 130/42
[2021-03-31] MEDS ORDERED: atropine 0.1mg/ml 10ml syringe IV STA (07:05)
[2021-03-31 07:41] LABS: MAGNESIUM 2.4 MG/DL (1.5-2.4)
--- NOTE | 2021-03-31 07:59 | NUR ---
AT 0628 PT HR STARTED TO MAINTAIN A JUNCTIONAL RHYTHM IN THE LOW 30'S. ZOLL TAKEN TO BEDSIDE. PACER PADS ATTACHED TO PT. PT ALERT AND ORIENTATED. NO COMPLAINTS. BP 138/42. O2 99% ON 2L NC. HR 32. NIGHT TIME HOSPITALIST PAGED @ 0645. NO RESPONSE RECEIVED. DR WAGNER OFFICE CALLED WITH REQUEST FOR CALL BACK. 0700 DR MARTINEZ PAGED. HE CALLED BACK @ 0704. ORDER FOR 0.5 ATROPINE RECEIVED. 07 RAPID RESPONSE CALLED. RT AND CCRN @ BEDSIDE. PT HEART RATE CHANGED TO 67. ATROPINE NOT GIVEN. 07 DR WAGNER CALLED PCU. ORDER FOR EKG AND MAG LEVEL RECEIVED. PT CONTINUES AT THIS TIME TO MAINTAIN HR OF MID 60's. MAG LEVEL 2.4.
[2021-03-31] MEDS ORDERED: enoxaparin 30mg/0.3ml syringe SQ SCH (08:00)
[2021-03-31] MEDS: docusate sod 100mg capsule PO SCH ×2 (08:00→20:00)
[2021-03-31] MEDS ORDERED: DOPamine 400mg/D5W 250ml 250 ML IV SCH ×2 (09:00→11:35)
--- NOTE | 2021-03-31 09:05 | NUR ---
ORDER RECEIVED FROM DR WAGNER VIA DR MARTINEZ TO INCREASE DOPAMINE GTT TO 7.5. PERMISSION TO EXCEED 5 MCG RECEIVED BY WILIAN GILLETTE [employer] SALES ENGINEER. PT HR DROPPED TO 20 WITH A [address] MARTINEZ AT BEDSIDE. PT C/O FEELING DIZZY. BP 103/61.
--- NOTE | 2021-03-31 09:36 | NUR ---
7811 DR WAGNER PAGED. @3546 DR WAGNER CALLED BACK. HE WAS INFORMED OF HE SUSTAINING IN THE LOW 30'S. HE AGREED WITH ATROPINE PUSH. 0.5 MG ATROPINE IV GIVEN. HR NOW 85-87 BPM. FAMILY AT BEDSIDE. WE AWAIT INR LEVEL. LAB CONTACTED AND INR DRAWN.
[2021-03-31] MEDS: normal saline 1000ml 1,000 ML IV SCH ×2 (11:44→16:40)
[2021-03-31] MEDS ORDERED: ceFAZolin 1000mg inj ONE (12:16)
[2021-03-31] MEDS ORDERED: midazolam 1 mg/ML 2ml injection ONE ×2 (12:16→13:37)
[2021-03-31] MEDS ORDERED: fentaNYL/PF 50MCG/1 ML 2ML syringe ONE (12:16)
[2021-03-31] MEDS ORDERED: LIDOcaine 1% W/epiNEPHrine 1:100,000 20ml vial ONE ×2 (12:17→13:37)
[2021-03-31] MEDS ORDERED: ceFAZolin/D5W- 1GM premix 50 ML IV ONE ×2 (13:20→13:40)
[2021-03-31] MEDS ORDERED: traMADol 50MG tablet PO PRN (14:15)
[2021-03-31] MEDS ORDERED: acetaminophen 325mg tablet PO PRN (14:15)
[2021-03-31] MEDS ORDERED: pramipexole 0.25mg tablet PO PRN (14:15)
[2021-03-31] MEDS ORDERED: HYDROcodone/acetaminophen 10/325mg tab PO PRN (15:20)
[2021-03-31] MEDS ORDERED: vancomycin/NS 1 GM ADD-VANTAGE 250 ML X 1 DOSE IV ONE (16:00)
[2021-03-31] MEDS: HYDROcodone/acetaminophen 5mg/325mg tablet PO PRN ×2 (16:40→21:06)
--- NOTE | 2021-03-31 18:33 | NUR ---
Patient in room [facility] 3018. I have received report from Denise Quigley RN and had the opportunity to ask questions and assume patient care. Addendum: 03/31/21 at 1835 by Yudelka Rodriguez RN The above should read Mary Ann LÓPEZ f/report.
--- NOTE | 2021-03-31 18:46 | NUR ---
Report given to Yudelka LÓPEZ
[2021-03-31] MEDS ORDERED: famotidine 20mg tablet PO SCH (21:00)
[2021-03-31] MEDS: gabapentin 300mg capsule PO SCH (21:01)
[2021-03-31] MEDS: flecainide 50mg tablet PO SCH (21:02)
[2021-03-31] MEDS: calcium carbonate 500mg tablet PO SCH (21:02)
[2021-04-01] MEDS: normal saline 1000ml 1,000 ML IV SCH (01:24)
[2021-04-01 02:00] VITALS: BP 178/67
[2021-04-01 06:00] VITALS: BP 145/69
--- NOTE | 2021-04-01 06:11 | NUR ---
Patient in room PCU 3018. I have received report from MARIBEL Torres and had the opportunity to ask questions and assume patient care.
--- NOTE | 2021-04-01 06:14 | NUR ---
Problems reprioritized. Patient report given, questions answered & plan of care reviewed with HINA LÓPEZ.
[2021-04-01 08:00] VITALS: BP_SYST 116; BP_SYST 142; BP_DIAS 54; BP_DIAS 60
[2021-04-01] MEDS ORDERED: nicotine 21mg patch - 24 hr TD SCH (08:00)
[2021-04-01] MEDS: docusate sod 100mg capsule PO SCH (08:00)
[2021-04-01] MEDS ORDERED: cholecalciferol (vitamin D3) 1,000 unit (25mcg) tablet PO SCH (08:00)
[2021-04-01] MEDS ORDERED: buPROPion SR 150mg tablet PO SCH (08:00)
[2021-04-01] MEDS ORDERED: DOPamine 400mg/D5W 250ml 250 ML IV SCH (09:00)
[2021-04-01] MEDS: gabapentin 300mg capsule PO SCH (09:07)
[2021-04-01] MEDS: calcium carbonate 500mg tablet PO SCH (09:07)
[2021-04-01] MEDS: flecainide 50mg tablet PO SCH (09:08)
[2021-04-01] MEDS ORDERED: CEPH-585 PO (09:50)
[2021-04-01] MEDS ORDERED: FLEC50TA28 PO (09:50)
--- NOTE | 2021-04-01 12:24 | NUR ---
Patient stable for discharge per MD orders. IJ line and PIV both discontinued intact with no difficulties. Telemetry monitoring equipment removed from patient and returned to telemetry office. All belongings gathered and sent home with patient. All discharge instructions reviewed with patient, who was given the opportunity to ask questions. All questions answered and patient expressed good understanding of discharge requirements. Patient assisted into a wheelchair and wheeled to the front of the building where he entered a private vehicle and departed, with his [id number] as motor coach bus driver.
== END 2021-04-01 12:24 | disposition home or self-care (01) | DRG 243 ==
LOC: ER 13:20 → ED HOLD 17:12 → PCU 3S 19:16
PROVIDERS: ADMIT Family Medicine; ATTEND Family Medicine
PROC: 0JH606Z Insertion of Pacemaker, Dual Chamber into Chest Subcutaneous Tissue and Fascia, Open Approach (ICD-10-PCS; principal; 2021-03-31)
PROC: 02H63JZ Insertion of Pacemaker Lead into Right Atrium, Percutaneous Approach (ICD-10-PCS; 2021-03-31)
PROC: 02HK3JZ Insertion of Pacemaker Lead into Right Ventricle, Percutaneous Approach (ICD-10-PCS; 2021-03-31)
PROC: 30233K1 Transfusion of Nonautologous Frozen Plasma into Peripheral Vein, Percutaneous Approach (ICD-10-PCS; 2021-03-31)
DX: I49.5 Sick sinus syndrome (principal); I47.1 Supraventricular tachycardia; N17.9 Acute kidney failure, unspecified; E78.5 Hyperlipidemia, unspecified; G25.81 Restless legs syndrome; G89.4 Chronic pain syndrome; F12.90 Cannabis use, unspecified, uncomplicated; F32.9 Major depressive disorder, single episode, unspecified; K21.9 Gastro-esophageal reflux disease without esophagitis; M54.9 Dorsalgia, unspecified; I12.9 Hypertensive chronic kidney disease with stage 1 through stage 4 chronic kidney disease, or unspecified chronic kidney disease; I45.5 Other specified heart block; I25.10 Atherosclerotic heart disease of native coronary artery without angina pectoris; I48.0 Paroxysmal atrial fibrillation; J44.9 Chronic obstructive pulmonary disease, unspecified; M81.0 Age-related osteoporosis without current pathological fracture; E55.9 Vitamin D deficiency, unspecified; N52.9 Male erectile dysfunction, unspecified; N18.9 Chronic kidney disease, unspecified; N40.0 Benign prostatic hyperplasia without lower urinary tract symptoms; Z80.0 Family history of malignant neoplasm of digestive organs; Z82.49 Family history of ischemic heart disease and other diseases of the circulatory system; Z87.11 Personal history of peptic ulcer disease; Z87.891 Personal history of nicotine dependence; Z90.81 Acquired absence of spleen
CPT/HCPCS: 33208; 36415; 36430; 71045; 71046; 80048; 80053; 83735; 84439; 84443; 84484; 85025; 85610; 85730; 86870; 86885; 86900; 86901; 87081; 93005; 93306; 94760; 94799; 96365; 96367; 96368; 96375; 99152; 99153; 99285; A4565; A4620; A6258; A6449; C1785; C1894; C1898; G0378; J0461; J0690; J1250; J1265; J1610; J2250; J3010; J3370; J3475; J7030; P9059

== ENCOUNTER 2022-06-29 08:59 | Inpatient (IN) | payer BC, MEDICARE ==
[~2022-06-29] VITALS: Ht 172.7 cm; Wt 63.6 kg
[~2022-06-29 08:59] MED LIST changes: +ACET325T57 PO; -ARIP10TA57 PO; +BUPR-317 PO; +CALC-157 PO; +CHOL100025 PO; -DOBUTamine/D5W 500mg/250ml premix IV ONE; -DULO60CA65 PO; +FAMO40TA87 PO; +FLEC50TA28 PO; -HYDR-3972 PO; +METO25TA6 PO; +NICO-687 TOP; +TRAM50TA2 PO; +WARF-65 PO
[2022-06-29 09:45] LABS: BASOPHILS # (AUTO) 0.1 X10'3 (0-0.2); BASOPHILS % (AUTO) 1.5 % (0-1); EOSINOPHILS # (AUTO) 0.4 X10'3 (0-0.9); EOSINOPHILS % (AUTO) 3.9 % (0-6); HEMATOCRIT 35.1 % (42.0-52.0); HEMOGLOBIN 12.2 g/dl (14.0-17.9); LYMPHOCYTES # (AUTO) 2.9 X10'3 (1.1-4.8); LYMPHOCYTES % (AUTO) 31.3 % (21-51); MEAN CORPUSCULAR HEMOGLOBIN 31.5 PG (27.0-31.0); MEAN CORPUSCULAR HGB CONC 34.7 g/dL (33.0-36.5); MEAN CORPUSCULAR VOLUME 90.6 FL (78-98); MEAN PLATELET VOLUME 6.6 FL (7.4-10.4); MONOCYTES % (AUTO) 11.5 % (2-12); NEUTROPHILS # (AUTO) 4.7 X10'3 (1.8-7.7); NEUTROPHILS % (AUTO) 51.8 % (42-75); PLATELET COUNT 348 X10'3 (140-440); RED BLOOD COUNT 3.87 X10'6 (4.70-6.10); RED CELL DISTRIBUTION WIDTH 14.2 % (11.5-14.5); WHITE BLOOD COUNT 9.1 X10'3 (4.5-11.0)
[2022-06-29] MEDS ORDERED: iohexol 350MG/ML 100ml bottle IV ONE (09:49)
[2022-06-29 10:07] LABS: APTT 51 SECONDS (22-32)
[2022-06-29 10:10] LABS: ALANINE AMINOTRANSFERASE 16 U/L (12-78); ALBUMIN 3.6 G/DL (3.4-5.0); ALKALINE PHOSPHATASE 111 IU/L (46-116); ANION GAP 7 (8-16); ASPARTATE AMINO TRANSFERASE 18 U/L (10-37); BILIRUBIN,TOTAL 0.5 MG/DL (0.1-1.0); BLOOD UREA NITROGEN 11 MG/DL (7-18); BUN/CREATININE RATIO 8.4 (5.4-32.0); CALCIUM 8.9 MG/DL (8.5-10.1); CHLORIDE 101 MMOL/L (99-107); CREATININE 1.31 MG/DL (0.60-1.10); GLUCOSE 100 MG/DL (70-104); POTASSIUM 4.5 MMOL/L (3.5-5.1); SODIUM 136 MMOL/L (135-145); TOTAL CARBON DIOXIDE 27.9 MMOL/L (24-32); TOTAL PROTEIN 7.1 G/DL (6.4-8.2); eGFR 54 ML/MIN
--- NOTE | 2022-06-29 10:15 | NUR ---
Patient seen and assess by provider for s/s of stroke - L UE weakness, difficulty walking, and alsight facial droop. Pt stating symptoms started yesterday (06/28/22) at appx 1200 during a grocery store run. Pt believed symptoms would resolve after sleeping, but after waking up decided to come in today.
--- NOTE | 2022-06-29 12:20 | NUR ---
Of note, pt stating he has had hematuria for 2-3 months since he started his warfarin. Pt had appt this week with his primary Dr to discuss hematuria - MD stating to continue to warfarin at this time.
[2022-06-29] MEDS ORDERED: acetaminophen 325mg tablet PO PRN ×2 (12:25)
[2022-06-29] MEDS ORDERED: magnesium hydroxide 30ml (MOM) UD suspension PO PRN (12:25)
[2022-06-29] MEDS ORDERED: clopidogrel 75mg tablet PO SCH (12:25)
[2022-06-29] MEDS ORDERED: hydrALAZINE 20mg/ml inj. IV PRN (12:25)
[2022-06-29] MEDS ORDERED: PERFLUTREN PROTEIN-A MICROSPHR (Optison) 0.22 MG/ML 3ML VIAL IV ONE (12:25)
[2022-06-29] MEDS ORDERED: FLEC50TA28 PO (12:44)
[2022-06-29] MEDS ORDERED: ROPI0.5T4 PO (12:46)
[2022-06-29] MEDS ORDERED: ALBU1.256 NEB (12:51)
[2022-06-29] MEDS ORDERED: NITR0.4T51 SL (12:51)
[2022-06-29] MEDS: aspirin 81mg, enteric-coated 1 TAB TABLET.DR PO SCH (14:05)
[2022-06-29] MEDS: normal saline 1000ml 1,000 ML IV SCH ×2 (14:06→17:48)
[2022-06-29 14:12] LABS: CHOLESTEROL 204 MG/DL (0-200); HDL CHOLESTEROL 41 MG/DL (35-60); LDL CHOLESTEROL 117 MG/DL (50-100); TRIGLYCERIDES 186 MG/DL (20-135)
[2022-06-29 14:19] LABS: HEMOGLOBIN A1C 5.5 % (4.5-6.2)
--- NOTE | 2022-06-29 15:20 | NUR ---
Pt left for MRI head in wheelchair, no stress noted.
--- NOTE | 2022-06-29 16:37 | NUR ---
Page Sent promotional table spacer PAGER ID: [phone] MESSAGE: ED #2 Radha Perdomo passed swallow test, can he have a heart healthy diet? Marva (76 character message out of a maximum of 240) CLOSE [X] SEND ANOTHER PAGE Thank you for visiting [facility] promotional table spacer promotional table spacer
[2022-06-29 17:01] LABS: CLARITY,URINE CLOUDY (Clear); COLOR,URINE RED (Yellow); GLUCOSE, URINE NEGATIVE (Neg); KETONES,URINE NEGATIVE (Neg); LEUKOCYTE ESTERASE ,URINE NEGATIVE (Neg); NITRITES, URINE NEGATIVE (Neg); OCCULT BLOOD,URINE LARGE (Neg); PROTEIN,URINE 30 mg/dl (Neg)
[2022-06-29 17:23] LABS: UA COLLECTION TYPE CLN CATCH MIDSTREAM
[2022-06-29 17:24] LABS: RBC,URINE TNTC /HPF (0-2)
[2022-06-29 17:25] LABS: BACTERIA,URINE FEW /HPF (Neg); SQUAMOUS EPITHELIAL CELL,UR FEW /LPF (FEW)
[2022-06-29 20:00] VITALS: BP 143/83
[2022-06-29 22:00] VITALS: BP 142/78
[2022-06-29] MEDS: flecainide 50mg tablet PO SCH (22:00)
[2022-06-29] MEDS: docusate sod 100mg capsule PO SCH (22:00)
--- NOTE | 2022-06-29 22:09 | NUR ---
INR 3.7, call pharmacy and pharmacist wants to hold it for tonight.
--- NOTE | 2022-06-29 23:04 | NUR ---
Pt complain of pain, current only has Tylenol order, Pt states at home he took [place] 5/325 mg 2 tablets PRN Q6H that works for him, MD notified and got an order [place] 5/325 mg 1 tablet Q6H PRN for pain.
[2022-06-29] MEDS: HYDROcodone/acetaminophen 5mg/325mg tablet PO PRN (23:31)
[2022-06-30] VITALS (8 sets, daily range): BP systolic 137–168; BP diastolic 46–89
--- NOTE | 2022-06-30 00:56 | NUR ---
Pt is is restless, PRN order [place] 5/325 mg 1 tab PRN Q6H and given it to him on 23:31 PM, it does not work, notified for sleep med.
--- NOTE | 2022-06-30 00:58 | NUR ---
MD call back and got an order Melatonin 6 mg PO one time.
[2022-06-30] MEDS ORDERED: Melatonin 3mg tablet PO ONE (01:00)
--- NOTE | 2022-06-30 05:08 | NUR ---
Pt requests legs restless syndrome med, called hospitalist and hospitalist stated please let AM MD evaluate patient because patient home meds do not show legs restless syndrome meds will notified AM nurse.
[2022-06-30] MEDS: normal saline 1000ml 1,000 ML IV SCH ×2 (05:54→19:27)
[2022-06-30 06:31] LABS: BASOPHILS # (AUTO) 0.1 X10'3 (0-0.2); BASOPHILS % (AUTO) 1.2 % (0-1); EOSINOPHILS # (AUTO) 0.4 X10'3 (0-0.9); EOSINOPHILS % (AUTO) 4.4 % (0-6); HEMATOCRIT 32.2 % (42.0-52.0); HEMOGLOBIN 10.9 g/dl (14.0-17.9); LYMPHOCYTES # (AUTO) 3.1 X10'3 (1.1-4.8); LYMPHOCYTES % (AUTO) 29.8 % (21-51); MEAN CORPUSCULAR HEMOGLOBIN 31.1 PG (27.0-31.0); MEAN CORPUSCULAR HGB CONC 33.8 g/dL (33.0-36.5); MEAN CORPUSCULAR VOLUME 92.2 FL (78-98); MONOCYTES # (AUTO) 1.2 X10'3 (0-0.9); MONOCYTES % (AUTO) 11.8 % (2-12); NEUTROPHILS # (AUTO) 5.4 X10'3 (1.8-7.7); NEUTROPHILS % (AUTO) 52.8 % (42-75); PLATELET COUNT 315 X10'3 (140-440); RED BLOOD COUNT 3.49 X10'6 (4.70-6.10); RED CELL DISTRIBUTION WIDTH 14.5 % (11.5-14.5); WHITE BLOOD COUNT 10.2 X10'3 (4.5-11.0)
--- NOTE | 2022-06-30 06:33 | NUR ---
Problems reprioritized. Patient report given at bedside, questions answered & plan of care reviewed with AM MARIBEL Watt.
--- NOTE | 2022-06-30 06:34 | NUR ---
Problems reprioritized. Patient report given at bedside, questions answered & plan of care reviewed with AM MARIBEL Watt.
[2022-06-30 06:46] LABS: ALANINE AMINOTRANSFERASE 14 U/L (12-78); ALBUMIN 3.2 G/DL (3.4-5.0); ALBUMIN/GLOBULIN RATIO 1.1 (1.1-1.5); ALKALINE PHOSPHATASE 100 IU/L (46-116); ANION GAP 6 (8-16); ASPARTATE AMINO TRANSFERASE 17 U/L (10-37); BILIRUBIN,TOTAL 0.6 MG/DL (0.1-1.0); BLOOD UREA NITROGEN 11 MG/DL (7-18); CALCIUM 8.3 MG/DL (8.5-10.1); CHLORIDE 101 MMOL/L (99-107); CREATININE 1.22 MG/DL (0.60-1.10); GLUCOSE 93 MG/DL (70-104); POTASSIUM 3.8 MMOL/L (3.5-5.1); SODIUM 133 MMOL/L (135-145); TOTAL CARBON DIOXIDE 25.7 MMOL/L (24-32); TOTAL PROTEIN 6.2 G/DL (6.4-8.2); eGFR 59 ML/MIN
[2022-06-30] MEDS: aspirin 81mg, enteric-coated 1 TAB TABLET.DR PO SCH (07:36)
[2022-06-30] MEDS: cholecalciferol (vitamin D3) 1,000 unit (25mcg) tablet PO SCH (07:36)
[2022-06-30] MEDS: flecainide 50mg tablet PO SCH ×2 (07:36→21:32)
[2022-06-30] MEDS: atorvastatin 20mg tablet PO SCH (07:37)
[2022-06-30] MEDS: docusate sod 100mg capsule PO SCH ×2 (07:38→21:32)
[2022-06-30] MEDS: calcium carbonate 500mg tablet PO SCH (07:38)
[2022-06-30] MEDS: HYDROcodone/acetaminophen 5mg/325mg tablet PO PRN ×2 (07:40→21:33)
[2022-06-30] MEDS ORDERED: atorvastatin 20mg tablet PO SCH (08:00)
[2022-06-30] MEDS: nicotine 21mg patch - 24 hr TD SCH (08:45)
[2022-06-30] MEDS: apixaban 5mg tablet PO SCH (21:32)
[2022-06-30] MEDS: temazepam 15mg capsule PO PRN (21:32)
[2022-06-30] MEDS: ROPINIRole 0.25mg tablet PO SCH (21:33)
[2022-07-01] VITALS (7 sets, daily range): BP systolic 121–161; BP diastolic 61–81
[2022-07-01] MEDS: nicotine 21mg patch - 24 hr TD SCH (07:47)
[2022-07-01] MEDS: docusate sod 100mg capsule PO SCH ×2 (07:47→19:58)
[2022-07-01] MEDS: flecainide 50mg tablet PO SCH ×2 (07:47→19:58)
[2022-07-01] MEDS: atorvastatin 20mg tablet PO SCH (07:47)
[2022-07-01] MEDS: calcium carbonate 500mg tablet PO SCH (07:47)
[2022-07-01] MEDS: apixaban 5mg tablet PO SCH ×2 (07:48→19:59)
[2022-07-01] MEDS: aspirin 81mg, enteric-coated 1 TAB TABLET.DR PO SCH (07:48)
[2022-07-01] MEDS: cholecalciferol (vitamin D3) 1,000 unit (25mcg) tablet PO SCH (07:48)
[2022-07-01] MEDS: temazepam 15mg capsule PO PRN ×2 (14:38→19:58)
[2022-07-01] MEDS ORDERED: diltiazem 5mg/ml 5ml inj. IV STA (16:40)
[2022-07-01] MEDS ORDERED: diltiazem-NS 100mg/100ml 100 ML IV SCH (17:24)
[2022-07-01] MEDS: ROPINIRole 0.25mg tablet PO SCH (19:58)
[2022-07-01] MEDS: metoprolol tartrate 25mg tablet PO SCH (19:59)
[2022-07-02] MEDS: normal saline 1000ml 1,000 ML IV SCH (00:41)
[2022-07-02 02:00] VITALS: BP 134/69
[2022-07-02 07:00] VITALS: BP 148/66
[2022-07-02] MEDS: cholecalciferol (vitamin D3) 1,000 unit (25mcg) tablet PO SCH (08:13)
[2022-07-02] MEDS: apixaban 5mg tablet PO SCH (08:13)
[2022-07-02] MEDS: nicotine 21mg patch - 24 hr TD SCH (08:13)
[2022-07-02] MEDS: flecainide 50mg tablet PO SCH (08:13)
[2022-07-02] MEDS: docusate sod 100mg capsule PO SCH (08:13)
[2022-07-02] MEDS: metoprolol tartrate 25mg tablet PO SCH (08:14)
[2022-07-02] MEDS: HYDROcodone/acetaminophen 5mg/325mg tablet PO PRN (08:14)
[2022-07-02] MEDS: aspirin 81mg, enteric-coated 1 TAB TABLET.DR PO SCH (08:15)
[2022-07-02] MEDS: calcium carbonate 500mg tablet PO SCH (08:15)
[2022-07-02] MEDS: atorvastatin 20mg tablet PO SCH (08:15)
[2022-07-02] MEDS ORDERED: diltiazem CD 120mg capsule (once-daily) PO SCH (09:00)
[2022-07-02 10:49] VITALS: BP 159/60
[2022-07-02 11:17] VITALS: BP 159/60
[2022-07-02] MEDS ORDERED: APIX5TAB3 PO (11:18)
[2022-07-02] MEDS ORDERED: ATOR40TA71 PO (11:18)
[2022-07-02] MEDS ORDERED: ASPI-1071 PO (11:18)
[2022-07-02] MEDS ORDERED: ROPI0.2540 PO (11:18)
[2022-07-02] MEDS ORDERED: CARCD120C PO (11:18)
--- NOTE | 2022-07-02 11:56 | NUR ---
Pt cleared and stable for DC. Given after care instructions and prescriptions. IV access removed. Assisted out with WC
== END 2022-07-02 11:50 | disposition home or self-care (01) | DRG 66 ==
LOC: ER 08:59 → ED HOLD 12:36 → EDBEDREQ 16:14 → PCU 3S 17:32
PROVIDERS: ADMIT Family Medicine; ATTEND Family Medicine
DX: I63.9 Cerebral infarction, unspecified (principal); E78.5 Hyperlipidemia, unspecified; F17.210 Nicotine dependence, cigarettes, uncomplicated; G89.29 Other chronic pain; I48.91 Unspecified atrial fibrillation; N18.9 Chronic kidney disease, unspecified; I12.9 Hypertensive chronic kidney disease with stage 1 through stage 4 chronic kidney disease, or unspecified chronic kidney disease; J44.9 Chronic obstructive pulmonary disease, unspecified; Z79.01 Long term (current) use of anticoagulants; Z83.3 Family history of diabetes mellitus; Z90.81 Acquired absence of spleen; Z95.0 Presence of cardiac pacemaker; Z71.6 Tobacco abuse counseling
CPT/HCPCS: 36415; 70200; 70450; 70470; 70492; 70551; 71045; 80053; 80061; 81001; 82948; 83036; 84484; 85025; 85610; 85730; 92508; 92616; 93005; 93306; 93880; 97116; 97161; 99285; G0378; J3490; J7030; Q9967

== ENCOUNTER 2022-07-10 06:32 | Inpatient (IN) | payer BC, MEDICARE ==
[2022-07-10] VITALS (12 sets, daily range): BP systolic 106–132; BP diastolic 40–67
[~2022-07-10] VITALS: Ht 175.3 cm; Wt 60.0 kg
[~2022-07-10 06:32] MED LIST changes: -ACET325T57 PO; +APIX5TAB3 PO; +ASPI-1071 PO; +ATOR40TA71 PO; -BUPR-317 PO; +CARCD120C PO; -FAMO40TA87 PO; -FLEC50TA28 PO; -GABA-532 PO; -NICO-687 TOP; -PRAM0.258 PO; +ROPI0.2540 PO; -TRAM50TA2 PO; -WARF-65 PO
[2022-07-10 09:01] LABS: BASOPHILS # (AUTO) 0.1 X10'3 (0-0.2); BASOPHILS % (AUTO) 0.7 % (0-1); EOSINOPHILS # (AUTO) 0.1 X10'3 (0-0.9); MEAN PLATELET VOLUME 6.6 FL (7.4-10.4); NEUTROPHILS # (AUTO) 6.3 X10'3 (1.8-7.7); RED CELL DISTRIBUTION WIDTH 16.7 % (11.5-14.5); WHITE BLOOD COUNT 9.2 X10'3 (4.5-11.0)
[2022-07-10 09:03] LABS: EOSINOPHILS % (AUTO) 1.3 % (0-6); LYMPHOCYTES # (AUTO) 1.6 X10'3 (1.1-4.8); LYMPHOCYTES % (AUTO) 17.8 % (21-51); MEAN CORPUSCULAR HGB CONC 33.2 g/dL (33.0-36.5); MEAN CORPUSCULAR VOLUME 93.3 FL (78-98); MONOCYTES % (AUTO) 11.3 % (2-12); NEUTROPHILS % (AUTO) 68.9 % (42-75); PLATELET COUNT 510 X10'3 (140-440); RED BLOOD COUNT 1.49 X10'6 (4.70-6.10)
[2022-07-10 09:07] LABS: HEMATOCRIT 13.9 % (42.0-52.0); HEMOGLOBIN 4.6 g/dl (14.0-17.9)
[2022-07-10 09:08] LABS: APTT 29 SECONDS (22-32)
[2022-07-10 09:12] LABS: ALANINE AMINOTRANSFERASE 22 U/L (12-78); ALBUMIN 3.1 G/DL (3.4-5.0); ALKALINE PHOSPHATASE 83 IU/L (46-116); ANION GAP 11 (8-16); ASPARTATE AMINO TRANSFERASE 26 U/L (10-37); BILIRUBIN,TOTAL 0.4 MG/DL (0.1-1.0); BLOOD UREA NITROGEN 19 MG/DL (7-18); CALCIUM 8.5 MG/DL (8.5-10.1); CHLORIDE 100 MMOL/L (99-107); CREATININE 1.36 MG/DL (0.60-1.10); GLUCOSE 112 MG/DL (70-104); POTASSIUM 3.7 MMOL/L (3.5-5.1); SODIUM 135 MMOL/L (135-145); TOTAL CARBON DIOXIDE 24.5 MMOL/L (24-32); TOTAL PROTEIN 6.2 G/DL (6.4-8.2); eGFR 52 ML/MIN
[2022-07-10] MEDS ORDERED: mag hydrox/Alum hydrox/simeth 30ml oral suspension PO PRN (10:10)
[2022-07-10] MEDS ORDERED: ondansetron/PF 4mg/2ml inj IV PRN (10:10)
[2022-07-10] MEDS: normal saline 1000ml 1,000 ML IV SCH ×2 (10:10→20:48)
[2022-07-10] MEDS ORDERED: acetaminophen 325mg tablet PO PRN (10:10)
[2022-07-10] MEDS ORDERED: morphine 2 MG/ML inj. syringe IV PRN ×2 (10:10)
[2022-07-10] MEDS: pantoprazole 40MG/NS 100ML BAG 100 ML IV SCH ×2 (10:10→20:59)
[2022-07-10] MEDS ORDERED: magnesium hydroxide 30ml (MOM) UD suspension PO PRN (10:10)
[2022-07-10 10:53] LABS: OCCULT BLOOD STOOL POSITIVE (Neg)
[2022-07-10] MEDS ORDERED: MIDAZolam 1 MG/ML 5ML VIAL ONE (11:05)
[2022-07-10] MEDS ORDERED: FENTANYL CITRATE/PF 50 MCG/1 ML VIAL ONE (11:05)
[2022-07-10] MEDS ORDERED: LIDOcaine Viscous 15ml cup ONE (11:05)
--- NOTE | 2022-07-10 11:19 | NUR ---
PT TAKEN TO GI LAB. PT IS 10 MINIUTES INTO HIS BLOOD TRANSFUSION. GI LAB NOTIFIED.
[2022-07-10 12:24] LABS: NUCLEATED RED BLOOD CELLS 1 /100WBC (0-0); TOTAL CELLS COUNTED 100
[2022-07-10 12:25] LABS: ANISOCYTOSIS 1+; HYPOCHROMASIA 1+; LARGE PLATELETS FEW; PLATELET ESTIMATE INCREASED; POLYCHROMASIA 1+
[2022-07-10] MEDS ORDERED: ASPI-1397 PO (14:49)
[2022-07-10] MEDS ORDERED: RIVA20TA PO (14:49)
[2022-07-10] MEDS ORDERED: CARCD120C PO (14:50)
[2022-07-10] MEDS ORDERED: ROPI0.2540 PO ×2 (14:51→14:52)
[2022-07-10] MEDS ORDERED: ATOR40TA71 PO (14:51)
[2022-07-10] MEDS ORDERED: GABA300C PO (14:52)
[2022-07-10] MEDS ORDERED: CYAN500T15 PO (14:54)
[2022-07-10] MEDS ORDERED: FOLI0.4T14 PO (14:55)
[2022-07-10 19:13] LABS: HEMATOCRIT 22.3 % (42.0-52.0); HEMOGLOBIN 7.5 g/dl (14.0-17.9); MEAN CORPUSCULAR HEMOGLOBIN 30.4 PG (27.0-31.0); MEAN CORPUSCULAR HGB CONC 33.5 g/dL (33.0-36.5); MEAN CORPUSCULAR VOLUME 90.8 FL (78-98); MEAN PLATELET VOLUME 6.6 FL (7.4-10.4); PLATELET COUNT 431 X10'3 (140-440); RED BLOOD COUNT 2.46 X10'6 (4.70-6.10); RED CELL DISTRIBUTION WIDTH 15.2 % (11.5-14.5); WHITE BLOOD COUNT 8.4 X10'3 (4.5-11.0)
[2022-07-10] MEDS: docusate sod 100mg capsule PO SCH (20:59)
--- NOTE | 2022-07-10 23:45 | NUR ---
placed in hospital bed, pt requesting home medication. MD contacted to try to get orders for his nightime medication
[2022-07-11] MEDS ORDERED: ROPINIRole 0.25mg tablet PO SCH ×5 (00:26→23:51)
[2022-07-11 04:10] LABS: CLARITY,URINE TURBID (Clear); GLUCOSE, URINE NEGATIVE (Neg); KETONES,URINE TRACE mg/dl (Neg); LEUKOCYTE ESTERASE ,URINE TRACE (Neg); OCCULT BLOOD,URINE LARGE (Neg); PH,URINE 6.5 (4.8-8.0); PROTEIN,URINE >=300 mg/dl (Neg); UROBILINOGEN,URINE 0.2 E.U/dL (0.2-1.0)
[2022-07-11 04:19] LABS: NITRITES, URINE NEGATIVE (Neg); UA COLLECTION TYPE NON-SPECIFIED
[2022-07-11 04:20] LABS: BACTERIA,URINE 1+ /HPF (Neg); RBC,URINE TNTC /HPF (0-2); SQUAMOUS EPITHELIAL CELL,UR FEW /LPF (FEW); TRANSITIONAL EPI CELLS,URINE FEW /HPF
[2022-07-11 04:21] LABS: COLOR,URINE BROWN (Yellow)
--- NOTE | 2022-07-11 04:36 | NUR ---
notified of dark brown urine. urinalysis ordered
[2022-07-11 06:25] LABS: ALBUMIN 2.7 G/DL (3.4-5.0); ANION GAP 6 (8-16); BLOOD UREA NITROGEN 16 MG/DL (7-18); BUN/CREATININE RATIO 13.8 (5.4-32.0); CHLORIDE 103 MMOL/L (99-107); CREATININE 1.16 MG/DL (0.60-1.10); GLUCOSE 93 MG/DL (70-104); POTASSIUM 3.6 MMOL/L (3.5-5.1); SODIUM 134 MMOL/L (135-145); TOTAL CARBON DIOXIDE 24.6 MMOL/L (24-32); eGFR 62 ML/MIN
[2022-07-11] MEDS: normal saline 1000ml 1,000 ML IV SCH ×2 (06:25→16:36)
[2022-07-11 06:43] LABS: EOSINOPHILS # (AUTO) 0.2 X10'3 (0-0.9); HEMOGLOBIN 7.7 g/dl (14.0-17.9); LYMPHOCYTES # (AUTO) 1.6 X10'3 (1.1-4.8); MEAN PLATELET VOLUME 6.8 FL (7.4-10.4)
[2022-07-11 06:49] LABS: BASOPHILS # (AUTO) 0.1 X10'3 (0-0.2); BASOPHILS % (AUTO) 0.7 % (0-1); EOSINOPHILS % (AUTO) 2.3 % (0-6); HEMATOCRIT 22.8 % (42.0-52.0); LYMPHOCYTES % (AUTO) 18.8 % (21-51); MEAN CORPUSCULAR HEMOGLOBIN 30.3 PG (27.0-31.0); MEAN CORPUSCULAR HGB CONC 33.7 g/dL (33.0-36.5); MEAN CORPUSCULAR VOLUME 89.9 FL (78-98); MONOCYTES # (AUTO) 0.8 X10'3 (0-0.9); MONOCYTES % (AUTO) 9.8 % (2-12); NEUTROPHILS # (AUTO) 5.9 X10'3 (1.8-7.7); NEUTROPHILS % (AUTO) 68.4 % (42-75); PLATELET COUNT 441 X10'3 (140-440); RED BLOOD COUNT 2.53 X10'6 (4.70-6.10); RED CELL DISTRIBUTION WIDTH 15.6 % (11.5-14.5); WHITE BLOOD COUNT 8.6 X10'3 (4.5-11.0)
[2022-07-11 07:22] LABS: LARGE PLATELETS FEW; NUCLEATED RED BLOOD CELLS 5 /100WBC (0-0); PLATELET ESTIMATE INCREASED; TOTAL CELLS COUNTED 100
[2022-07-11 07:23] LABS: ANISOCYTOSIS 1+; HYPOCHROMASIA 1+
[2022-07-11 07:24] LABS: POLYCHROMASIA 1+
[2022-07-11 08:10] LABS: FERRITIN 23 NG/ML (26-388)
[2022-07-11 09:29] LABS: % IRON SATURATION 6 % (11-46); IRON 17 UG/DL (53-167); TOTAL IRON BINDING CAPACITY 286 UG/DL (259-388)
[2022-07-11] MEDS: metoprolol tartrate 25mg tablet PO SCH (09:35)
[2022-07-11] MEDS: pantoprazole 40MG/NS 100ML BAG 100 ML IV SCH (09:35)
[2022-07-11] MEDS: gabapentin 300mg capsule PO SCH ×2 (09:35→13:16)
[2022-07-11] MEDS: docusate sod 100mg capsule PO SCH ×2 (09:36→20:00)
[2022-07-11] MEDS: diltiazem CD 120mg capsule (once-daily) PO SCH (09:44)
[2022-07-11 10:07] LABS: LACTATE DEHYDROGENASE 188 U/L (85-227)
[2022-07-11 10:17] LABS: ABSOLUTE RETICS # 213400 /CUMM (23000-93000); RETICULOCYTE % (AUTO) 8.4 % (0.5-1.5)
[2022-07-11 20:00] VITALS: BP 119/49
[2022-07-11] MEDS ORDERED: atorvastatin 20mg tablet PO SCH (21:00)
[2022-07-12] MEDS ORDERED: ROPINIRole 0.25mg tablet PO SCH
[2022-07-12] MEDS: gabapentin 300mg capsule PO SCH ×3 (00:07→12:50)
[2022-07-12] MEDS: pantoprazole 40mg Tablet.DR PO SCH ×2 (00:07→07:42)
[2022-07-12] MEDS: metoprolol tartrate 25mg tablet PO SCH ×2 (00:21→10:43)
[2022-07-12] MEDS: normal saline 1000ml 1,000 ML IV SCH (00:30)
[2022-07-12 02:00] VITALS: BP 113/47
[2022-07-12 06:00] VITALS: BP 105/71
[2022-07-12 06:46] LABS: BASOPHILS # (AUTO) 0.1 X10'3 (0-0.2); BASOPHILS % (AUTO) 0.7 % (0-1); HEMOGLOBIN 7.3 g/dl (14.0-17.9); LYMPHOCYTES # (AUTO) 1.9 X10'3 (1.1-4.8); MONOCYTES # (AUTO) 0.9 X10'3 (0-0.9); RED CELL DISTRIBUTION WIDTH 16.2 % (11.5-14.5)
[2022-07-12 06:48] LABS: EOSINOPHILS # (AUTO) 0.3 X10'3 (0-0.9); EOSINOPHILS % (AUTO) 3.1 % (0-6); LYMPHOCYTES % (AUTO) 22.7 % (21-51); MEAN CORPUSCULAR HEMOGLOBIN 30.6 PG (27.0-31.0); MEAN CORPUSCULAR HGB CONC 33.4 g/dL (33.0-36.5); MEAN CORPUSCULAR VOLUME 91.6 FL (78-98); MEAN PLATELET VOLUME 6.6 FL (7.4-10.4); MONOCYTES % (AUTO) 10.8 % (2-12); NEUTROPHILS # (AUTO) 5.3 X10'3 (1.8-7.7); NEUTROPHILS % (AUTO) 62.7 % (42-75); PLATELET COUNT 449 X10'3 (140-440); RED BLOOD COUNT 2.37 X10'6 (4.70-6.10); WHITE BLOOD COUNT 8.5 X10'3 (4.5-11.0)
[2022-07-12 06:51] LABS: HEMATOCRIT 21.7 % (42.0-52.0)
--- NOTE | 2022-07-12 06:54 | NUR ---
Patient in room PCU 3012. I have received report from MARIBEL MCCLELLAN, and had the opportunity to ask questions and assume patient care.
--- NOTE | 2022-07-12 06:54 | NUR ---
PAGE SENT PAGER ID: [phone] MESSAGE: [id number], SAILAJA HUI, CRITICAL LABS, HGB, 7.3, HCT 21.7. THANK YOU, JARROD [id number]
[2022-07-12 06:59] LABS: ALBUMIN 2.5 G/DL (3.4-5.0); ANION GAP 9 (8-16); BLOOD UREA NITROGEN 15 MG/DL (7-18); CALCIUM 8.1 MG/DL (8.5-10.1); CHLORIDE 107 MMOL/L (99-107); CREATININE 1.15 MG/DL (0.60-1.10); GLUCOSE 97 MG/DL (70-104); POTASSIUM 3.8 MMOL/L (3.5-5.1); SODIUM 139 MMOL/L (135-145); TOTAL CARBON DIOXIDE 22.7 MMOL/L (24-32); eGFR 63 ML/MIN
[2022-07-12] MEDS: docusate sod 100mg capsule PO SCH (07:42)
[2022-07-12 07:43] LABS: NUCLEATED RED BLOOD CELLS 3 /100WBC (0-0); TOTAL CELLS COUNTED 100
[2022-07-12] MEDS: diltiazem CD 120mg capsule (once-daily) PO SCH (07:43)
[2022-07-12 07:44] LABS: ANISOCYTOSIS 1+; LARGE PLATELETS FEW; PLATELET ESTIMATE INCREASED; POIKILOCYTOSIS 1+; POLYCHROMASIA FEW
[2022-07-12 08:00] VITALS: BP_SYST 104; BP_SYST 107; BP_SYST 113; BP_DIAS 35; BP_DIAS 37; BP_DIAS 43
--- NOTE | 2022-07-12 10:04 | NUR ---
DISCHARGE ORDERS RECEIVED. 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
[2022-07-12 10:28] VITALS: BP 113/37
[2022-07-12 10:43] VITALS: BP_SYST 113
[2022-07-12] MEDS ORDERED: PANT-47 PO (11:25)
--- NOTE | 2022-07-12 13:15 | NUR ---
PT STABLE FOR DISCHARGE PER MD. BELONGINGS RETURNED TO PT. DISCHARGE AND FOLLOWUP ORDERS REVIEWED WITH PT. APPROPRIATE PAPERWORK SIGNED. TELE BOX REMOVED. PIV REMOVED WITH TIP INTACT. PT TRANSFERRED TO PRIVATE VEHICLE BY HOSPITAL STAFF. PT DISCHARGED TO HOME.
== END 2022-07-12 13:33 | disposition home or self-care (01) | DRG 811 ==
LOC: ER 06:33 → ED HOLD 10:11 → PCU 3S 07-11 19:55
PROVIDERS: ADMIT Internal Medicine; ATTEND Internal Medicine
PROC: 0DJ08ZZ Inspection of Upper Intestinal Tract, Via Natural or Artificial Opening Endoscopic (ICD-10-PCS; principal; 2022-07-10)
PROC: 30233N1 Transfusion of Nonautologous Red Blood Cells into Peripheral Vein, Percutaneous Approach (ICD-10-PCS; 2022-07-10)
DX: D50.9 Iron deficiency anemia, unspecified (principal); N17.0 Acute kidney failure with tubular necrosis; K92.2 Gastrointestinal hemorrhage, unspecified; E78.5 Hyperlipidemia, unspecified; I12.9 Hypertensive chronic kidney disease with stage 1 through stage 4 chronic kidney disease, or unspecified chronic kidney disease; I48.0 Paroxysmal atrial fibrillation; J44.9 Chronic obstructive pulmonary disease, unspecified; K29.80 Duodenitis without bleeding; G89.29 Other chronic pain; I49.5 Sick sinus syndrome; M54.9 Dorsalgia, unspecified; R31.9 Hematuria, unspecified; F12.90 Cannabis use, unspecified, uncomplicated; N18.30 Chronic kidney disease, stage 3 unspecified; Z79.01 Long term (current) use of anticoagulants; Z79.899 Other long term (current) drug therapy; Z83.3 Family history of diabetes mellitus; Z86.73 Personal history of transient ischemic attack (TIA), and cerebral infarction without residual deficits; Z87.891 Personal history of nicotine dependence; Z90.81 Acquired absence of spleen; Z95.0 Presence of cardiac pacemaker; Z79.82 Long term (current) use of aspirin
CPT/HCPCS: 36415; 36430; 43235; 80048; 80053; 81001; 82272; 82728; 83540; 83550; 83615; 83880; 85007; 85025; 85027; 85045; 85610; 85730; 86870; 86880; 86885; 86900; 86901; 86922; 87081; 93005; 99152; 99285; A4620; C9113; G0378; J2250; J3010; J7030; J7050; P9016

== ENCOUNTER 2022-08-08 05:08 | Emergency (ER) | payer BC, MEDICARE ==
[~2022-08-08] VITALS: Ht 177.8 cm; Wt 63.1 kg
[~2022-08-08 05:08] MED LIST changes: -APIX5TAB3 PO; -ASPI-1071 PO; +CYAN500T15 PO; +FOLI0.4T14 PO; +GABA300C PO; +PANT-47 PO; +RIVA20TA PO
[2022-08-08 06:02] LABS: HEMOGLOBIN 7.3 g/dl (14.0-17.9); WHITE BLOOD COUNT 7.1 X10'3 (4.5-11.0)
[2022-08-08 06:03] LABS: HEMATOCRIT 23.5 % (42.0-52.0); MEAN CORPUSCULAR HEMOGLOBIN 24.7 PG (27.0-31.0); MEAN CORPUSCULAR VOLUME 79.8 FL (78-98); PLATELET COUNT 733 X10'3 (140-440); RED BLOOD COUNT 2.95 X10'6 (4.70-6.10); RED CELL DISTRIBUTION WIDTH 19.8 % (11.5-14.5)
[2022-08-08 06:13] LABS: ALANINE AMINOTRANSFERASE 18 U/L (12-78); ALBUMIN 3.4 G/DL (3.4-5.0); ALBUMIN/GLOBULIN RATIO 0.9 (1.1-1.5); ALKALINE PHOSPHATASE 103 IU/L (46-116); ANION GAP 12 (8-16); ASPARTATE AMINO TRANSFERASE 21 U/L (10-37); BILIRUBIN,TOTAL 0.3 MG/DL (0.1-1.0); BLOOD UREA NITROGEN 19 MG/DL (7-18); BUN/CREATININE RATIO 13.6 (5.4-32.0); CALCIUM 8.9 MG/DL (8.5-10.1); CHLORIDE 94 MMOL/L (99-107); GLUCOSE 84 MG/DL (70-104); POTASSIUM 3.9 MMOL/L (3.5-5.1); SODIUM 127 MMOL/L (135-145); TOTAL CARBON DIOXIDE 20.6 MMOL/L (24-32); TOTAL PROTEIN 7.4 G/DL (6.4-8.2); eGFR 50 ML/MIN
[2022-08-08 06:43] LABS: ANISOCYTOSIS 2+; ELLIPTOCYTES FEW; LARGE PLATELETS FEW; PLATELET ESTIMATE INCREASED; POLYCHROMASIA 1+; TARGET CELLS FEW; TOTAL CELLS COUNTED 100
[2022-08-08 07:11] LABS: CLARITY,URINE TURBID (Clear); COLOR,URINE RED (Yellow); UA COLLECTION TYPE URINAL
[2022-08-08] MEDS ORDERED: phenazopyridine 100mg tablet PO ONE (07:15)
[2022-08-08 07:19] LABS: RBC,URINE TNTC /HPF (0-2)
[2022-08-08 07:20] LABS: BACTERIA,URINE 1+ /HPF (Neg); MUCUS STRANDS NONE SEEN /LPF (Neg); SQUAMOUS EPITHELIAL CELL,UR FEW /LPF (FEW)
[2022-08-08] MEDS ORDERED: OXYB5TAB16 PO (07:47)
[2022-08-08] MEDS ORDERED: PHEN-716 PO (07:53)
[2022-08-08] MEDS ORDERED: CefTRIAXone/D5W-Rocephin 1gm 50 ML IV ONE (07:55)
[2022-08-08 08:03] VITALS: BP 136/66
== END 2022-08-08 08:42 | disposition home or self-care (01) ==
LOC: ER 05:09
DX: R31.9 Hematuria, unspecified (principal); D64.9 Anemia, unspecified; R42 Dizziness and giddiness; G89.29 Other chronic pain; F12.90 Cannabis use, unspecified, uncomplicated; Z86.73 Personal history of transient ischemic attack (TIA), and cerebral infarction without residual deficits; Z86.2 Personal history of diseases of the blood and blood-forming organs and certain disorders involving the immune mechanism; Z95.0 Presence of cardiac pacemaker; Z72.89 Other problems related to lifestyle; Z79.899 Other long term (current) drug therapy
CPT/HCPCS: 36415; 71045; 80053; 81001; 83605; 84145; 85007; 85025; 86870; 86885; 86900; 86901; 86902; 86905; 87040; 87088; 93005; 96365; 99285; J0696

== ENCOUNTER 2022-08-16 17:20 | Emergency (ER) | payer BC, MEDICARE ==
[~2022-08-16] VITALS: Ht 175.3 cm; Wt 92.0 kg
[~2022-08-16 17:20] MED LIST changes: +OXYB5TAB16 PO; +PHEN-716 PO
[2022-08-16 18:41] LABS: ALANINE AMINOTRANSFERASE 18 U/L (12-78); ALBUMIN 2.9 G/DL (3.4-5.0); ALBUMIN/GLOBULIN RATIO 0.9 (1.1-1.5); ALKALINE PHOSPHATASE 92 IU/L (46-116); ANION GAP 8 (8-16); ASPARTATE AMINO TRANSFERASE 15 U/L (10-37); BILIRUBIN,TOTAL 0.2 MG/DL (0.1-1.0); BLOOD UREA NITROGEN 17 MG/DL (7-18); BUN/CREATININE RATIO 11.6 (5.4-32.0); CALCIUM 8.6 MG/DL (8.5-10.1); CHLORIDE 101 MMOL/L (99-107); CREATININE 1.46 MG/DL (0.60-1.10); GLUCOSE 111 MG/DL (70-104); POTASSIUM 3.7 MMOL/L (3.5-5.1); SODIUM 137 MMOL/L (135-145); TOTAL CARBON DIOXIDE 27.7 MMOL/L (24-32); TOTAL PROTEIN 6.1 G/DL (6.4-8.2); eGFR 48 ML/MIN
[2022-08-16 18:49] LABS: BASOPHILS # (AUTO) 0.1 X10'3 (0-0.2); BASOPHILS % (AUTO) 0.9 % (0-1); EOSINOPHILS # (AUTO) 0.7 X10'3 (0-0.9); EOSINOPHILS % (AUTO) 7.4 % (0-6); LYMPHOCYTES # (AUTO) 2.2 X10'3 (1.1-4.8); LYMPHOCYTES % (AUTO) 23.5 % (21-51); MEAN CORPUSCULAR HEMOGLOBIN 26.2 PG (27.0-31.0); MEAN CORPUSCULAR HGB CONC 30.1 g/dL (33.0-36.5); MEAN PLATELET VOLUME 6.2 FL (7.4-10.4); MONOCYTES # (AUTO) 0.7 X10'3 (0-0.9); MONOCYTES % (AUTO) 7.6 % (2-12); NEUTROPHILS # (AUTO) 5.7 X10'3 (1.8-7.7); NEUTROPHILS % (AUTO) 60.6 % (42-75); PLATELET COUNT 453 X10'3 (140-440); RED BLOOD COUNT 2.33 X10'6 (4.70-6.10); RED CELL DISTRIBUTION WIDTH 28.6 % (11.5-14.5); WHITE BLOOD COUNT 9.4 X10'3 (4.5-11.0)
[2022-08-16 18:54] LABS: HEMATOCRIT 20.2 % (42.0-52.0); HEMOGLOBIN 6.1 g/dl (14.0-17.9)
--- NOTE | 2022-08-16 20:33 | NUR ---
Blood consent signed, lab called adn said that it will take 2 hours to verify antibodies and get the untis of blood ready. Pt. AAOX4, denies dizziness.
[2022-08-16 20:50] LABS: NUCLEATED RED BLOOD CELLS 1 /100WBC (0-0); TOTAL CELLS COUNTED 100
[2022-08-16 20:51] LABS: ANISOCYTOSIS 3+; HYPOCHROMASIA 1+; PLATELET ESTIMATE INCREASED
[2022-08-16 20:52] LABS: SCHISTOCYTES FEW; TARGET CELLS 1+
--- NOTE | 2022-08-16 22:15 | NUR ---
FIRST UNIT OF BLOOD STARTED. PT. DENIES FLANK PAIN / SOB AT THIS TIME. PT AFEBRILE, VSS.
[2022-08-17 03:44] VITALS: BP 147/53
== END 2022-08-17 03:46 | disposition home or self-care (01) ==
LOC: ER 17:22
DX: D64.9 Anemia, unspecified (principal); R06.02 Shortness of breath; R53.83 Other fatigue; G89.29 Other chronic pain; F12.90 Cannabis use, unspecified, uncomplicated; Z86.73 Personal history of transient ischemic attack (TIA), and cerebral infarction without residual deficits; Z86.2 Personal history of diseases of the blood and blood-forming organs and certain disorders involving the immune mechanism; Z95.0 Presence of cardiac pacemaker; Z72.89 Other problems related to lifestyle; Z98.890 Other specified postprocedural states; Z79.899 Other long term (current) drug therapy
CPT/HCPCS: 36415; 36430; 80053; 85007; 85025; 86870; 86885; 86900; 86901; 86902; 86905; 86922; 99285; J7030; P9016; 86920

== ENCOUNTER 2022-12-31 15:33 | Inpatient (IN) | payer BC, MEDICARE ==
[~2022-12-31] VITALS: Ht 176.5 cm; Wt 63.6 kg
[2022-12-31] VITALS (7 sets, daily range): BP systolic 107–137; BP diastolic 57–89
[2022-12-31 16:03] LABS: WHITE BLOOD COUNT 3.9 X10'3 (4.5-11.0)
[2022-12-31 16:04] LABS: MEAN CORPUSCULAR HEMOGLOBIN 20.1 PG (27.0-31.0); MEAN CORPUSCULAR HGB CONC 27.1 g/dL (33.0-36.5); MEAN CORPUSCULAR VOLUME 74.2 FL (78-98); PLATELET COUNT 384 X10'3 (140-440); RED BLOOD COUNT 2.03 X10'6 (4.70-6.10); RED CELL DISTRIBUTION WIDTH 23.4 % (11.5-14.5)
[2022-12-31 16:15] LABS: APTT 33 SECONDS (22-32)
[2022-12-31 16:16] LABS: ALANINE AMINOTRANSFERASE 17 U/L (12-78); ALBUMIN 2.7 G/DL (3.4-5.0); ALBUMIN/GLOBULIN RATIO 0.9 (1.1-1.5); ALKALINE PHOSPHATASE 102 IU/L (46-116); ANION GAP 8 (8-16); ASPARTATE AMINO TRANSFERASE 15 U/L (10-37); BILIRUBIN,TOTAL 0.3 MG/DL (0.1-1.0); BLOOD UREA NITROGEN 18 MG/DL (7-18); BUN/CREATININE RATIO 13.2 (10.0-20.0); CHLORIDE 103 MMOL/L (99-107); CREATININE 1.36 MG/DL (0.60-1.10); GLUCOSE 113 MG/DL (70-104); POTASSIUM 4.3 MMOL/L (3.5-5.1); SODIUM 138 MMOL/L (135-145); TOTAL CARBON DIOXIDE 26.8 MMOL/L (24-32); TOTAL PROTEIN 5.8 G/DL (6.4-8.2); eGFR 52 ML/MIN
[2022-12-31 16:21] LABS: HEMATOCRIT 15.1 % (42.0-52.0); HEMOGLOBIN 4.1 g/dl (14.0-17.9)
[2022-12-31 17:27] LABS: NUCLEATED RED BLOOD CELLS 11 /100WBC (0-0); TOTAL CELLS COUNTED 100
[2022-12-31 17:29] LABS: ANISOCYTOSIS 3+; MICROCYTOSIS 1+; PLATELET ESTIMATE NORMAL
[2022-12-31 17:30] LABS: BURR CELLS 2+; HYPOCHROMASIA 3+; SCHISTOCYTES FEW
[2022-12-31 17:31] LABS: POLYCHROMASIA FEW
--- NOTE | 2022-12-31 17:35 | NUR ---
PRBC not ready at this time,called blood bank.
[2022-12-31 17:39] LABS: CLARITY,URINE SLIGHTLY CLOUDY (Clear); COLOR,URINE YELLOW (Yellow); GLUCOSE, URINE NEGATIVE (Neg); KETONES,URINE NEGATIVE (Neg); LEUKOCYTE ESTERASE ,URINE SMALL (Neg); NITRITES, URINE POSITIVE (Neg); OCCULT BLOOD,URINE NEGATIVE (Neg); PROTEIN,URINE NEGATIVE (Neg); UROBILINOGEN,URINE 0.2 E.U/dL (0.2-1.0)
[2022-12-31 17:41] LABS: OCCULT BLOOD STOOL POSITIVE (Neg)
[2022-12-31 17:42] LABS: UA COLLECTION TYPE CLN CATCH MIDSTREAM
[2022-12-31 17:52] LABS: BACTERIA,URINE 3+ /HPF (Neg); RBC,URINE NONE SEEN /HPF (0-2); WBC,URINE 20-30 /HPF (0-4)
[2022-12-31 17:53] LABS: COARSE GRANULAR CAST 0-3 /LPF (NEGATIVE); SQUAMOUS EPITHELIAL CELL,UR NONE SEEN /LPF (FEW)
[2022-12-31] MEDS ORDERED: CefTRIAXone/D5W-Rocephin 1gm 50 ML IV ONE (18:40)
[2022-12-31] MEDS ORDERED: metoclopramide 5 mg/ml inj IV PRN (20:40)
[2022-12-31] MEDS ORDERED: HYDROcodone/acetaminophen 5mg/325mg tablet PO PRN (20:40)
[2022-12-31] MEDS ORDERED: diphenhydrAMINE 25mg capsule PO PRN (20:40)
[2022-12-31] MEDS ORDERED: morphine 2 MG/ML inj. syringe IV PRN (20:40)
[2022-12-31] MEDS ORDERED: normal saline 1000ml 1,000 ML IV SCH (20:40)
[2022-12-31] MEDS ORDERED: ondansetron/PF 4mg/2ml inj IV PRN (20:40)
[2022-12-31] MEDS ORDERED: acetaminophen 650mg rectal suppository RC PRN (20:40)
[2022-12-31] MEDS ORDERED: bisacodyl 10mg suppository rectal RC PRN (20:40)
[2022-12-31] MEDS ORDERED: acetaminophen 325mg tablet PO PRN ×2 (20:40)
[2022-12-31] MEDS ORDERED: mag hydrox/Alum hydrox/simeth 30ml oral suspension PO PRN (20:40)
[2022-12-31] MEDS ORDERED: ondansetron 4mg rapidly disintigrating tab PO PRN (20:40)
[2022-12-31] MEDS ORDERED: magnesium hydroxide 30ml (MOM) UD suspension PO PRN (20:40)
[2022-12-31] MEDS ORDERED: diphenhydrAMINE 50 mg/ml inj IV PRN (20:40)
[2022-12-31] MEDS ORDERED: tranexamic acid inj. 1,000 MG in normal saline 100ml IV soln 90 ML IV ONE (20:45)
[2022-12-31 21:14] LABS: LIPASE 53 U/L (73-393); MAGNESIUM 1.9 MG/DL (1.5-2.4); PHOSPHORUS 3.4 MG/DL (2.3-4.5)
[2022-12-31 21:32] LABS: HEMOGLOBIN A1C < 3.8 % (4.5-6.2)
[2022-12-31] MEDS: pantoprazole 40MG/NS 100ML BAG 100 ML IV SCH (22:57)
[2022-12-31 23:02] LABS: RED BLOOD COUNT 2.32 X10'6 (4.70-6.10); RED CELL DISTRIBUTION WIDTH 21.6 % (11.5-14.5)
[2022-12-31 23:03] LABS: MEAN CORPUSCULAR HEMOGLOBIN 23.7 PG (27.0-31.0); PLATELET COUNT 293 X10'3 (140-440); WHITE BLOOD COUNT 4.7 X10'3 (4.5-11.0)
[2022-12-31 23:11] LABS: D-DIMER 0.46 MG/L FEU (0-0.50)
[2022-12-31 23:21] LABS: HEMATOCRIT 18.3 % (42.0-52.0); HEMOGLOBIN 5.5 g/dl (14.0-17.9)
[2023-01-01] VITALS (19 sets, daily range): BP systolic 91–145; BP diastolic 32–81
[2023-01-01] MEDS ORDERED: TRAM50TA2 PO (00:17)
[2023-01-01] MEDS ORDERED: DULO-31 PO (00:17)
[2023-01-01] MEDS: temazepam 15mg capsule PO PRN ×2 (00:21→19:37)
[2023-01-01] MEDS: pantoprazole 40MG/NS 100ML BAG 100 ML IV SCH ×4 (01:00→19:34)
--- NOTE | 2023-01-01 03:17 | NUR ---
Cld Dr. Gore as patient is sounding wet and struggling to breath. He has gotten 3 units of blood and his PBNP is over 7000. Per MD give Lasix 20mg IV now.
[2023-01-01] MEDS ORDERED: furosemide 20 MG/2 ML vial IV ONE (03:20)
--- NOTE | 2023-01-01 04:07 | NUR ---
Patient still struggling to breath, is sating in the low 90's on 2L NC. I had stat CXR done and it looks like he is fluid overloaded. I cld Dr. Gore to look at the CXR and for further orders.
--- NOTE | 2023-01-01 05:26 | NUR ---
Patient sleeping comfortably now, Lasix is working.
--- NOTE | 2023-01-01 06:34 | NUR ---
Problems reprioritized. Patient report given, questions answered & plan of care reviewed with MARIBEL Garcia
[2023-01-01 06:47] LABS: HEMATOCRIT 26.6 % (42.0-52.0); HEMOGLOBIN 8.1 g/dl (14.0-17.9); LYMPHOCYTES # (AUTO) 0.9 X10'3 (1.1-4.8); MEAN CORPUSCULAR HEMOGLOBIN 24.2 PG (27.0-31.0); MEAN PLATELET VOLUME 7.3 FL (7.4-10.4)
[2023-01-01 06:53] LABS: BASOPHILS # (AUTO) 0.1 X10'3 (0-0.2); BASOPHILS % (AUTO) 0.7 % (0-1); EOSINOPHILS % (AUTO) 0.2 % (0-6); LYMPHOCYTES % (AUTO) 9.9 % (21-51); MEAN CORPUSCULAR HGB CONC 30.5 g/dL (33.0-36.5); MEAN CORPUSCULAR VOLUME 79.5 FL (78-98); MONOCYTES # (AUTO) 1.2 X10'3 (0-0.9); MONOCYTES % (AUTO) 14.5 % (2-12); NEUTROPHILS # (AUTO) 6.4 X10'3 (1.8-7.7); NEUTROPHILS % (AUTO) 74.7 % (42-75); PLATELET COUNT 348 X10'3 (140-440); RED BLOOD COUNT 3.35 X10'6 (4.70-6.10); WHITE BLOOD COUNT 8.6 X10'3 (4.5-11.0)
--- NOTE | 2023-01-01 06:55 | NUR ---
RECEIVED MORNING SHIFT CHANGE REPORT WITH MARIBEL MAYS, PATIENT WAS RESTING IN BED.
[2023-01-01] MEDS ORDERED: ipratropium/albuterol 3ml nebule NEB SCH (07:00)
[2023-01-01 07:01] LABS: ALANINE AMINOTRANSFERASE 19 U/L (12-78); ALBUMIN 2.8 G/DL (3.4-5.0); ALBUMIN/GLOBULIN RATIO 0.9 (1.1-1.5); ALKALINE PHOSPHATASE 107 IU/L (46-116); ANION GAP 9 (8-16); ASPARTATE AMINO TRANSFERASE 17 U/L (10-37); BILIRUBIN,TOTAL 1.4 MG/DL (0.1-1.0); BLOOD UREA NITROGEN 16 MG/DL (7-18); BUN/CREATININE RATIO 12.5 (10.0-20.0); CALCIUM 8.1 MG/DL (8.5-10.1); CHLORIDE 104 MMOL/L (99-107); CREATININE 1.28 MG/DL (0.60-1.10); GLUCOSE 116 MG/DL (70-104); HDL CHOLESTEROL 31 MG/DL (35-60); LDL CHOLESTEROL 22 MG/DL (50-100); POTASSIUM 4.6 MMOL/L (3.5-5.1); SODIUM 137 MMOL/L (135-145); TOTAL CARBON DIOXIDE 24.5 MMOL/L (24-32); TRIGLYCERIDES 39 MG/DL (20-135); eGFR 56 ML/MIN
--- NOTE | 2023-01-01 07:01 | NUR ---
Patient in room ORTHO 4014. I have received report from maggie LÓPEZ and had the opportunity to ask questions and assume patient care.
[2023-01-01 07:02] LABS: CHOLESTEROL < 50 MG/DL (0-200)
[2023-01-01 07:29] LABS: NUCLEATED RED BLOOD CELLS 13 /100WBC (0-0); PLATELET ESTIMATE DECREASED; TOTAL CELLS COUNTED 100
[2023-01-01 07:30] LABS: ANISOCYTOSIS 2+; LARGE PLATELETS FEW; MICROCYTOSIS 1+; SCHISTOCYTES 1+
[2023-01-01 07:31] LABS: ELLIPTOCYTES FEW; HYPOCHROMASIA 2+
[2023-01-01 07:32] LABS: POLYCHROMASIA 1+
[2023-01-01] MEDS: azithromycin/NS 500mg/250ml 250 ML IV SCH (07:49)
[2023-01-01] MEDS: methylPREDNISolone sod succ 125mg/2ml vial IV SCH ×2 (07:50→19:36)
[2023-01-01] MEDS: docusate sod 100mg capsule PO SCH ×2 (07:50→19:51)
[2023-01-01] MEDS: nicotine 21mg patch - 24 hr TD SCH (07:57)
[2023-01-01] MEDS ORDERED: ipratropium/albuterol 3ml nebule NEB PRN (08:15)
[2023-01-01 09:41] LABS: FERRITIN 17 NG/ML (26-388)
[2023-01-01 10:43] LABS: URINE AMPHETAMINE SCREEN NEGATIVE (Neg); URINE BARBITUATE SCREEN NEGATIVE (Neg); URINE BENZODIAZEPINES SCREEN NEGATIVE (Neg); URINE CANNABINOID SCREEN POSITIVE (Neg); URINE COCAINE SCREEN NEGATIVE (Neg); URINE METHADONE SCREEN NEGATIVE (Neg); URINE OPIATE SCREEN NEGATIVE (Neg); URINE PHENCYCLIDINE SCREEN NEGATIVE (Neg)
--- NOTE | 2023-01-01 10:44 | NUR ---
Malnutrition Consult: Pt admit DX UTI, chronic anemia, chronic GIB, CKD 3, and HTN w/ hx heavy etoh per EMR. PO pending initial full liquids diet w/ mild weakness and no edema/wounds per EMR. Pending scaled wt this admit w/ height hx 68-70in prior admit and current reported wt exact same wt as prior June 2022 admit per EMR. At this time pt lacks minimum malnutrition criteria though is at risk given hx. RD d/w RN regarding routine thiamine, folic acid, and MVI given etoh hx if MD agreeable. Will monitor for further malnutrition criteria this admit. Addendum: 01/01/23 at [address] Amended: Links added.
[2023-01-01 11:25] LABS: TOTAL IRON BINDING CAPACITY 378 UG/DL (259-388)
[2023-01-01] MEDS ORDERED: LIDOcaine Viscous 15ml cup ONE (11:43)
[2023-01-01] MEDS ORDERED: fentaNYL/PF 50MCG/1 ML 2ML syringe ONE (11:43)
[2023-01-01] MEDS ORDERED: MIDAZolam 1 MG/ML 5ML VIAL ONE (11:43)
[2023-01-01] MEDS: CefTRIAXone/D5W-Rocephin 1gm 50 ML IV SCH (12:33)
[2023-01-01 12:39] LABS: % IRON SATURATION 85 % (11-46); IRON 320 UG/DL (53-167)
--- NOTE | 2023-01-01 16:39 | NUR ---
Patient went for EGD, report in chart. Tele called to say HR was in 120-150 , but was having procedure done. patient returned to floor. HR still 120-150's. Dr Villegas notified. OK to give lopressor 25mg now. will continue to monitor
[2023-01-01] MEDS ORDERED: metoprolol tartrate 25mg tablet PO ONE (16:51)
--- NOTE | 2023-01-01 18:32 | NUR ---
HR 110-130. Report given to Lenora LÓPEZ
[2023-01-01] MEDS: calcium carbonate 500mg tablet PO SCH (19:36)
[2023-01-01] MEDS: atorvastatin 20mg tablet PO SCH (19:37)
[2023-01-01] MEDS: metoprolol tartrate 25mg tablet PO SCH (19:38)
[2023-01-01] MEDS: traMADol 50MG tablet PO SCH (19:43)
[2023-01-01] MEDS: gabapentin 300mg capsule PO SCH (19:44)
[2023-01-02] MEDS: pantoprazole 40MG/NS 100ML BAG 100 ML IV SCH ×3 (01:49→07:53)
--- NOTE | 2023-01-02 05:45 | NUR ---
agree with assessment and charting of Taisha, student RN
[2023-01-02 06:06] LABS: ALANINE AMINOTRANSFERASE 11 U/L (12-78); ALBUMIN 2.3 G/DL (3.4-5.0); ALBUMIN/GLOBULIN RATIO 0.8 (1.1-1.5); ALKALINE PHOSPHATASE 92 IU/L (46-116); ANION GAP 8 (8-16); ASPARTATE AMINO TRANSFERASE 16 U/L (10-37); BILIRUBIN,TOTAL 0.7 MG/DL (0.1-1.0); BLOOD UREA NITROGEN 15 MG/DL (7-18); CHLORIDE 103 MMOL/L (99-107); CREATININE 1.07 MG/DL (0.60-1.10); GLUCOSE 153 MG/DL (70-104); POTASSIUM 4.3 MMOL/L (3.5-5.1); SODIUM 135 MMOL/L (135-145); TOTAL CARBON DIOXIDE 23.9 MMOL/L (24-32); TOTAL PROTEIN 5.2 G/DL (6.4-8.2); eGFR 69 ML/MIN
[2023-01-02 06:12] LABS: EOSINOPHILS % (AUTO) 0 % (0-6); HEMOGLOBIN 8.8 g/dl (14.0-17.9); MONOCYTES # (AUTO) 0.2 X10'3 (0-0.9)
[2023-01-02 06:13] LABS: BASOPHILS % (AUTO) 0.2 % (0-1); HEMATOCRIT 29.4 % (42.0-52.0); LYMPHOCYTES # (AUTO) 0.5 X10'3 (1.1-4.8); LYMPHOCYTES % (AUTO) 10.4 % (21-51); MEAN CORPUSCULAR HEMOGLOBIN 23.3 PG (27.0-31.0); MEAN CORPUSCULAR VOLUME 77.8 FL (78-98); MONOCYTES % (AUTO) 4.6 % (2-12); NEUTROPHILS # (AUTO) 4.2 X10'3 (1.8-7.7); NEUTROPHILS % (AUTO) 84.8 % (42-75); PLATELET COUNT 341 X10'3 (140-440); RED BLOOD COUNT 3.78 X10'6 (4.70-6.10); RED CELL DISTRIBUTION WIDTH 21.5 % (11.5-14.5)
--- NOTE | 2023-01-02 06:34 | NUR ---
reported to days. noted pt resting w/o distress
--- NOTE | 2023-01-02 06:37 | NUR ---
Patient in room ORTHO 4014. I have received report from Heaven LÓPEZ and had the opportunity to ask questions and assume patient care.
[2023-01-02 06:51] LABS: ANISOCYTOSIS 3+; MICROCYTOSIS 1+; NUCLEATED RED BLOOD CELLS 21 /100WBC (0-0); PLATELET ESTIMATE NORMAL; TOTAL CELLS COUNTED 100
[2023-01-02 06:53] LABS: ACANTHOCYTES FEW; ELLIPTOCYTES FEW; HYPOCHROMASIA 1+; LARGE PLATELETS MODERATE; POLYCHROMASIA 1+
[2023-01-02 06:54] LABS: SCHISTOCYTES FEW
[2023-01-02 06:55] LABS: WHITE BLOOD COUNT 4.5 X10'3 (4.5-11.0)
[2023-01-02 07:30] VITALS: BP 116/65
[2023-01-02] MEDS: cholecalciferol (vitamin D3) 1,000 unit (25mcg) tablet PO SCH (07:41)
[2023-01-02] MEDS: calcium carbonate 500mg tablet PO SCH ×2 (07:41→20:05)
[2023-01-02] MEDS: nicotine 21mg patch - 24 hr TD SCH (07:42)
[2023-01-02] MEDS: diltiazem CD 120mg capsule (once-daily) PO SCH (07:43)
[2023-01-02] MEDS: metoprolol tartrate 25mg tablet PO SCH ×2 (07:43→20:05)
[2023-01-02] MEDS: duloxetine 30mg CAPSULE.DR PO SCH (07:43)
[2023-01-02] MEDS: cyanocobalamin 500mcg tablet PO SCH (07:44)
[2023-01-02] MEDS: azithromycin/NS 500mg/250ml 250 ML IV SCH (07:44)
[2023-01-02] MEDS: methylPREDNISolone sod succ 125mg/2ml vial IV SCH ×2 (07:50→20:05)
[2023-01-02] MEDS: docusate sod 100mg capsule PO SCH ×2 (08:00→20:00)
[2023-01-02 10:00] VITALS: BP 104/62
[2023-01-02] MEDS: folic acid 0.4mg tablet PO SCH (10:36)
[2023-01-02] MEDS: CefTRIAXone/D5W-Rocephin 1gm 50 ML IV SCH (10:37)
--- NOTE | 2023-01-02 18:24 | NUR ---
up with PT see note, no c/o pain. Tolerating heart healthy diet. Seen by DR Villegas.
[2023-01-02 19:00] VITALS: BP 132/91
[2023-01-02] MEDS: atorvastatin 20mg tablet PO SCH (20:06)
[2023-01-02] MEDS: gabapentin 300mg capsule PO SCH (20:06)
[2023-01-02] MEDS: furosemide 40mg/4ml inj IV SCH (20:06)
[2023-01-02] MEDS: traMADol 50MG tablet PO SCH (20:06)
[2023-01-02] MEDS: temazepam 15mg capsule PO PRN (20:20)
[2023-01-02 22:00] VITALS: BP 123/77
[2023-01-03 05:30] VITALS: BP 148/86
--- NOTE | 2023-01-03 06:27 | NUR ---
patient slept well following sleeping pill. Appears stable. Report given to Jessie RN
--- NOTE | 2023-01-03 06:40 | NUR ---
Patient in room ORTHO 4014. I have received report from MARIBEL Garcia and had the opportunity to ask questions and assume patient care.
[2023-01-03 07:07] LABS: MEAN CORPUSCULAR VOLUME 77.7 FL (78-98); WHITE BLOOD COUNT 12.4 X10'3 (4.5-11.0)
[2023-01-03 07:10] LABS: BASOPHILS % (AUTO) 0 % (0-1); EOSINOPHILS % (AUTO) 0 % (0-6); HEMOGLOBIN 8.2 g/dl (14.0-17.9); LYMPHOCYTES # (AUTO) 0.6 X10'3 (1.1-4.8); LYMPHOCYTES % (AUTO) 4.8 % (21-51); MEAN CORPUSCULAR HEMOGLOBIN 23.6 PG (27.0-31.0); MEAN CORPUSCULAR HGB CONC 30.3 g/dL (33.0-36.5); MEAN PLATELET VOLUME 7.2 FL (7.4-10.4); MONOCYTES # (AUTO) 0.5 X10'3 (0-0.9); MONOCYTES % (AUTO) 4.3 % (2-12); NEUTROPHILS # (AUTO) 11.3 X10'3 (1.8-7.7); NEUTROPHILS % (AUTO) 90.9 % (42-75); PLATELET COUNT 319 X10'3 (140-440); RED BLOOD COUNT 3.47 X10'6 (4.70-6.10); RED CELL DISTRIBUTION WIDTH 22.3 % (11.5-14.5)
[2023-01-03 07:22] LABS: ALANINE AMINOTRANSFERASE 14 U/L (12-78); ALBUMIN 2.5 G/DL (3.4-5.0); ALBUMIN/GLOBULIN RATIO 0.8 (1.1-1.5); ALKALINE PHOSPHATASE 87 IU/L (46-116); ANION GAP 6 (8-16); ASPARTATE AMINO TRANSFERASE 24 U/L (10-37); BILIRUBIN,TOTAL 0.4 MG/DL (0.1-1.0); BLOOD UREA NITROGEN 22 MG/DL (7-18); BUN/CREATININE RATIO 19.1 (10.0-20.0); CALCIUM 8.3 MG/DL (8.5-10.1); CHLORIDE 101 MMOL/L (99-107); CREATININE 1.15 MG/DL (0.60-1.10); GLUCOSE 152 MG/DL (70-104); SODIUM 133 MMOL/L (135-145); TOTAL CARBON DIOXIDE 26.4 MMOL/L (24-32); TOTAL PROTEIN 5.5 G/DL (6.4-8.2); eGFR 63 ML/MIN
[2023-01-03] MEDS ORDERED: pantoprazole 40mg Tablet.DR PO SCH (07:30)
[2023-01-03 09:15] LABS: ANISOCYTOSIS 3+; MICROCYTOSIS 1+; NUCLEATED RED BLOOD CELLS 2 /100WBC (0-0); PLATELET ESTIMATE NORMAL; TOTAL CELLS COUNTED 100
[2023-01-03 09:16] LABS: ACANTHOCYTES FEW; ELLIPTOCYTES FEW; HYPOCHROMASIA 1+; POLYCHROMASIA FEW; SCHISTOCYTES FEW
[2023-01-03 10:00] VITALS: BP 115/79
[2023-01-03] MEDS ORDERED: PANT40TA54 PO (10:15)
[2023-01-03] MEDS ORDERED: FURO40TA4 PO (10:15)
[2023-01-03] MEDS: furosemide 40mg/4ml inj IV SCH (11:11)
[2023-01-03] MEDS: methylPREDNISolone sod succ 125mg/2ml vial IV SCH (11:11)
[2023-01-03] MEDS: duloxetine 30mg CAPSULE.DR PO SCH (11:11)
[2023-01-03 11:12] VITALS: BP_SYST 148
[2023-01-03] MEDS: cyanocobalamin 500mcg tablet PO SCH (11:12)
[2023-01-03] MEDS: metoprolol tartrate 25mg tablet PO SCH (11:12)
[2023-01-03] MEDS: cholecalciferol (vitamin D3) 1,000 unit (25mcg) tablet PO SCH (11:12)
[2023-01-03] MEDS: diltiazem CD 120mg capsule (once-daily) PO SCH (11:12)
[2023-01-03] MEDS: docusate sod 100mg capsule PO SCH (11:13)
[2023-01-03] MEDS: folic acid 0.4mg tablet PO SCH (11:13)
[2023-01-03] MEDS: calcium carbonate 500mg tablet PO SCH (11:13)
[2023-01-03] MEDS: nicotine 21mg patch - 24 hr TD SCH (11:14)
--- NOTE | 2023-01-03 13:20 | NUR ---
DC inst provided to pt & pt's , IV DC'd, tip intact, all belongings sent w/pt, WC to vehicle.
== END 2023-01-03 13:20 | disposition home or self-care (01) | DRG 368 ==
LOC: ER 15:34 → ORTHO 4S 23:41
PROVIDERS: ADMIT Family Medicine; ATTEND Family Medicine
PROC: 30233N1 Transfusion of Nonautologous Red Blood Cells into Peripheral Vein, Percutaneous Approach (ICD-10-PCS; 2022-12-31)
PROC: 0DB78ZX Excision of Stomach, Pylorus, Via Natural or Artificial Opening Endoscopic, Diagnostic (ICD-10-PCS; principal; 2023-01-01)
DX: K20.91 Esophagitis, unspecified with bleeding (principal); I50.33 Acute on chronic diastolic (congestive) heart failure; J18.9 Pneumonia, unspecified organism; J96.00 Acute respiratory failure, unspecified whether with hypoxia or hypercapnia; D62 Acute posthemorrhagic anemia; I13.0 Hypertensive heart and chronic kidney disease with heart failure and stage 1 through stage 4 chronic kidney disease, or unspecified chronic kidney disease; J44.0 Chronic obstructive pulmonary disease with (acute) lower respiratory infection; J44.1 Chronic obstructive pulmonary disease with (acute) exacerbation; N17.9 Acute kidney failure, unspecified; N30.00 Acute cystitis without hematuria; E78.5 Hyperlipidemia, unspecified; D72.819 Decreased white blood cell count, unspecified; E86.1 Hypovolemia; F17.200 Nicotine dependence, unspecified, uncomplicated; I49.5 Sick sinus syndrome; M54.9 Dorsalgia, unspecified; G89.4 Chronic pain syndrome; K44.9 Diaphragmatic hernia without obstruction or gangrene; I48.0 Paroxysmal atrial fibrillation; N18.30 Chronic kidney disease, stage 3 unspecified; Z79.01 Long term (current) use of anticoagulants; Z79.899 Other long term (current) drug therapy; Z83.3 Family history of diabetes mellitus; Z85.51 Personal history of malignant neoplasm of bladder; Z86.73 Personal history of transient ischemic attack (TIA), and cerebral infarction without residual deficits; Z87.19 Personal history of other diseases of the digestive system; Z90.81 Acquired absence of spleen; Z95.0 Presence of cardiac pacemaker; Z82.49 Family history of ischemic heart disease and other diseases of the circulatory system; Z71.6 Tobacco abuse counseling
CPT/HCPCS: 36415; 36430; 43239; 71045; 80053; 80061; 80305; 81001; 82272; 82728; 83036; 83540; 83550; 83605; 83690; 83735; 83880; 84100; 84484; 85007; 85025; 85027; 85379; 85610; 85730; 86870; 86885; 86900; 86901; 86922; 87040; 87077; 87081; 87088; 87186; 93306; 94640; 94760; 97116; 97161; 97530; 99152; 99285; A4349; A4615; A4620; C9113; G0378; J0456; J0696; J1940; J2250; J2270; J2930; J3010; J3490; J7030; J7040; P9016

== ENCOUNTER 2023-03-19 07:21 | Day surgery (SDC) | payer BC, MEDICARE ==
[~2023-03-19] VITALS: Ht 172.7 cm; Wt 60.5 kg
[~2023-03-19 07:21] MED LIST changes: +DULO-31 PO; -OXYB5TAB16 PO; -PANT-47 PO; +PANT40TA54 PO; -PHEN-716 PO; -RIVA20TA PO; -ROPI0.2540 PO; +TRAM50TA2 PO
[2023-03-19 07:32] VITALS: BP 139/68; PULSE 80; RESP 18
[2023-03-19] MEDS ORDERED: fentaNYL/PF 50MCG/1 ML 2ML syringe ONE (07:50)
[2023-03-19] MEDS ORDERED: LIDOcaine Viscous 15ml cup ONE (07:50)
[2023-03-19] MEDS ORDERED: MIDAZolam 1 MG/ML 5ML VIAL ONE (07:50)
[2023-03-19] MEDS ORDERED: tylenol PO (07:55)
[2023-03-19] MEDS ORDERED: vit c (07:55)
[2023-03-19] MEDS ORDERED: CALC-336 PO (07:55)
[2023-03-19] MEDS ORDERED: FERR-28 PO (07:55)
[2023-03-19 09:21] VITALS: BP 110/52; PULSE 71; RESP 12; O2SAT 98
[2023-03-19 09:31] VITALS: BP 106/53; PULSE 70; RESP 12; O2SAT 97
[2023-03-19 09:41] VITALS: BP 105/57; PULSE 70; RESP 13; O2SAT 95
[2023-03-19 09:51] VITALS: BP 108/58; PULSE 70; RESP 13; O2SAT 96
== END 2023-03-19 10:21 | disposition home or self-care (01) ==
LOC: GI LAB 07:21
PROVIDERS: ATTEND Internal Medicine Gastroenterology
DX: D50.9 Iron deficiency anemia, unspecified (principal); K29.50 Unspecified chronic gastritis without bleeding; I48.91 Unspecified atrial fibrillation; I50.9 Heart failure, unspecified; J44.9 Chronic obstructive pulmonary disease, unspecified; F17.210 Nicotine dependence, cigarettes, uncomplicated; Z95.0 Presence of cardiac pacemaker; Z86.73 Personal history of transient ischemic attack (TIA), and cerebral infarction without residual deficits; Z98.890 Other specified postprocedural states; Z79.899 Other long term (current) drug therapy; F10.91 Alcohol use, unspecified, in remission
CPT/HCPCS: 43239; 45378; 99152; 99153; J2250; J3010; J7030; Z7512; A4620

== ENCOUNTER 2024-08-13 09:19 | Inpatient (IN) | payer BC, MEDICARE ==
[~2024-08-13] VITALS: Ht 175.3 cm; Wt 55.4 kg
[~2024-08-13 09:19] MED LIST changes: +CALC-336 PO; +FERR-28 PO; +tylenol PO; +vit c
[2024-08-13] MEDS ORDERED: FURO40TA4 PO (10:23)
[2024-08-13] MEDS ORDERED: METO50TA17 PO (10:23)
[2024-08-13] MEDS ORDERED: FLEC100T PO (10:23)
[2024-08-13] MEDS ORDERED: WARF-55 PO (10:23)
[2024-08-13] MEDS: diltiazem 5mg/ml 5ml inj. IV ONE ×2 (10:35→11:05)
[2024-08-13 10:39] LABS: ALBUMIN 3.1 G/DL (3.4-5.0); ANION GAP 13 (8-16); BLOOD UREA NITROGEN 41 MG/DL (7-18); BUN/CREATININE RATIO 23.4 (10.0-20.0); CHLORIDE 90 MMOL/L (99-107); CREATININE 1.75 MG/DL (0.60-1.10); GLUCOSE 110 MG/DL (70-104); MAGNESIUM 2.1 MG/DL (1.5-2.4); SODIUM 129 MMOL/L (135-145); TOTAL CARBON DIOXIDE 26.3 MMOL/L (24-32); eCRCL 30 ML/MIN; eGFR 39 ML/MIN
[2024-08-13 10:43] LABS: INR 1.6 INR; PROTHROMBIN TIME 16.1 SECONDS (9.0-12.0)
[2024-08-13 10:46] LABS: BASOPHILS % (AUTO) 0.2 % (0-1); EOSINOPHILS % (AUTO) 0 % (0-6); HEMATOCRIT 44.2 % (42.0-52.0); HEMOGLOBIN 14.9 g/dl (14.0-17.9); LYMPHOCYTES # (AUTO) 0.7 X10'3 (1.1-4.8); LYMPHOCYTES % (AUTO) 4.7 % (21-51); MEAN CORPUSCULAR HEMOGLOBIN 34.2 PG (27.0-31.0); MEAN CORPUSCULAR HGB CONC 33.8 g/dL (33.0-36.5); MEAN PLATELET VOLUME 7.4 FL (7.4-10.4); MONOCYTES # (AUTO) 1.1 X10'3 (0-0.9); MONOCYTES % (AUTO) 7.7 % (2-12); NEUTROPHILS # (AUTO) 12.8 X10'3 (1.8-7.7); NEUTROPHILS % (AUTO) 87.4 % (42-75); PLATELET COUNT 298 X10'3 (140-440); RED BLOOD COUNT 4.37 X10'6 (4.70-6.10); RED CELL DISTRIBUTION WIDTH 13.7 % (11.5-14.5); WHITE BLOOD COUNT 14.7 X10'3 (4.5-11.0)
[2024-08-13 10:47] LABS: UA COLLECTION TYPE CLN CATCH MIDSTREAM
[2024-08-13 10:48] LABS: CLARITY,URINE BLOODY (Clear); COLOR,URINE RED (Yellow)
[2024-08-13] MEDS: CefTRIAXone/D5W-Rocephin 1gm 50 ML IV ONE (11:05)
[2024-08-13 11:17] LABS: BACTERIA,URINE 4+ /HPF (Neg); MUCUS STRANDS NONE SEEN /LPF (Neg); RBC,URINE TNTC /HPF (0-2); SQUAMOUS EPITHELIAL CELL,UR NONE SEEN /LPF (FEW); TRANSITIONAL EPI CELLS,URINE FEW /HPF; WBC CLUMPS,URINE MANY /HPF (NEGATIVE); WBC,URINE TNTC /HPF (0-4)
[2024-08-13] MEDS ORDERED: magnesium Cl slow-release 64mg tablet PO PRN (11:35)
[2024-08-13] MEDS ORDERED: potassium Cl 20 mEq SR tablet PO PRN ×2 (11:35)
[2024-08-13] MEDS ORDERED: magnesium sulf-water 4G/100mL 100 ML IV PRN (11:35)
[2024-08-13] MEDS ORDERED: ondansetron/PF 4mg/2ml inj IV PRN (11:35)
[2024-08-13] MEDS ORDERED: morphine 2 MG/ML inj. syringe IV PRN (11:35)
[2024-08-13] MEDS ORDERED: magnesium hydroxide 30ml (MOM) UD suspension PO PRN (11:35)
[2024-08-13] MEDS ORDERED: magnesium sulf-water 2g/50mL 50 ML IV PRN (11:35)
[2024-08-13] MEDS ORDERED: acetaminophen 325mg tablet PO PRN (11:35)
[2024-08-13] MEDS ORDERED: potassium Cl 40MEQ/1/2NS 520ml 520 ML IV PRN (11:35)
[2024-08-13] MEDS ORDERED: mag hydrox/Alum hydrox/simeth 30ml oral suspension PO PRN (11:35)
[2024-08-13] MEDS: PERFLUTREN PROTEIN-A MICROSPHR (Optison) 0.22 MG/ML 3ML VIAL IV ONE (12:03)
[2024-08-13] MEDS: normal saline 1000ml 1,000 ML IV SCH (12:05)
[2024-08-13] MEDS: diltiazem-NS 100mg/100ml 100 ML IV SCH (13:28)
[2024-08-13] MEDS: amiodarone 150mg/dext, iso-os 100 ML IV ONE (14:51)
[2024-08-13] MEDS: amiodarone/D5 360MG/200ML BAG 200 ML IV SCH (15:07)
[2024-08-13] MEDS ORDERED: iohexol 300mg/ml 100ml inj. ONE (15:13)
[2024-08-13] MEDS ORDERED: normal saline 1000ml 1,000 ML IV SCH (15:40)
[2024-08-13 15:43] LABS: OSMOLALITY 274 MOSM/K (280-300)
[2024-08-13 15:48] LABS: SODIUM,URINE RANDOM 35 MEQ/L
[2024-08-13 16:12] LABS: OSMOLALITY UA 391 MOSM/K (50-1400)
[2024-08-13 16:24] LABS: HEMOGLOBIN A1C 5.4 % (4.5-6.2)
[2024-08-13] MEDS ORDERED: ipratropium/albuterol 3ml nebule NEB PRN (16:25)
[2024-08-13 19:00] VITALS: BP 134/79; PULSE 100; RESP 17; TEMP 97; O2SAT 98
[2024-08-13 19:42] LABS: OCCULT BLOOD STOOL POSITIVE (Neg)
[2024-08-13 20:00] VITALS: BP 128/63; PULSE 122
[2024-08-13] MEDS: K and/or MAG REPLACEMENT MC SCH (20:00)
[2024-08-13] MEDS ORDERED: docusate sod 100mg capsule PO SCH (20:00)
[2024-08-13 20:23] VITALS: PULSE 94; RESP 18; O2SAT 96
[2024-08-13] MEDS: atorvastatin 20mg tablet PO SCH (20:56)
[2024-08-13] MEDS: metoprolol tartrate 50mg tablet PO SCH (20:59)
[2024-08-13 21:00] VITALS: BP 106/57; PULSE 119
[2024-08-13] MEDS: pantoprazole 40MG/NS 100ML BAG 100 ML IV SCH (21:01)
[2024-08-13 22:00] VITALS: BP 115/66; PULSE 112; RESP 18; TEMP 97.1; O2SAT 98
[2024-08-14] VITALS (12 sets, daily range): BP systolic 97–125; BP diastolic 47–74; PULSE 74–114; RESP 11–19; TEMP 97.3–98; O2SAT 94–99
[2024-08-14 06:20] LABS: BASOPHILS % (AUTO) 0.3 % (0-1); EOSINOPHILS % (AUTO) 0.1 % (0-6); HEMATOCRIT 37.1 % (42.0-52.0); HEMOGLOBIN 12.9 g/dl (14.0-17.9); LYMPHOCYTES # (AUTO) 0.7 X10'3 (1.1-4.8); MEAN CORPUSCULAR HEMOGLOBIN 34.6 PG (27.0-31.0); MEAN CORPUSCULAR HGB CONC 34.7 g/dL (33.0-36.5); MEAN CORPUSCULAR VOLUME 99.9 FL (78-98); MEAN PLATELET VOLUME 7.1 FL (7.4-10.4); MONOCYTES # (AUTO) 1.3 X10'3 (0-0.9); MONOCYTES % (AUTO) 12.3 % (2-12); NEUTROPHILS # (AUTO) 8.4 X10'3 (1.8-7.7); NEUTROPHILS % (AUTO) 80.3 % (42-75); PLATELET COUNT 263 X10'3 (140-440); RED BLOOD COUNT 3.71 X10'6 (4.70-6.10); WHITE BLOOD COUNT 10.5 X10'3 (4.5-11.0)
[2024-08-14 06:36] LABS: ALANINE AMINOTRANSFERASE 28 U/L (12-78); ALBUMIN 2.6 G/DL (3.4-5.0); ALBUMIN/GLOBULIN RATIO 0.7 (1.1-1.5); ALKALINE PHOSPHATASE 96 IU/L (46-116); ANION GAP 9 (8-16); ASPARTATE AMINO TRANSFERASE 23 U/L (10-37); BILIRUBIN,TOTAL 0.6 MG/DL (0.1-1.0); BLOOD UREA NITROGEN 39 MG/DL (7-18); BUN/CREATININE RATIO 24.1 (10.0-20.0); CALCIUM 8.5 MG/DL (8.5-10.1); CHLORIDE 96 MMOL/L (99-107); CREATININE 1.62 MG/DL (0.60-1.10); GLUCOSE 102 MG/DL (70-104); POTASSIUM 4.5 MMOL/L (3.5-5.1); SODIUM 132 MMOL/L (135-145); TOTAL CARBON DIOXIDE 27.4 MMOL/L (24-32); TOTAL PROTEIN 6.3 G/DL (6.4-8.2); eCRCL 33 ML/MIN; eGFR 42 ML/MIN
[2024-08-14] MEDS ORDERED: pantoprazole 40mg Tablet.DR PO SCH (07:30)
[2024-08-14] MEDS: CefTRIAXone 2gm/D5W 50ml BAG 50 ML IV SCH (08:56)
[2024-08-14 16:57] LABS: PRO BRAIN NATRIURETIC PEPTIDE 7227 PG/ML (0-125)
[2024-08-14] MEDS: lactose-reduced food (Ensure Enlive) - 237ml bottle PO SCH (18:00)
[2024-08-14] MEDS: flecainide 50mg tablet PO SCH (20:00)
[2024-08-14] MEDS: HYDROcodone/acetaminophen 5mg/325mg tablet PO PRN (21:33)
[2024-08-15 01:00] VITALS: BP 97/47; PULSE 92
[2024-08-15 01:46] LABS: BASOPHILS % (AUTO) 0.3 % (0-1); EOSINOPHILS % (AUTO) 0.4 % (0-6); HEMATOCRIT 36.3 % (42.0-52.0); HEMOGLOBIN 12.3 g/dl (14.0-17.9); LYMPHOCYTES # (AUTO) 0.8 X10'3 (1.1-4.8); LYMPHOCYTES % (AUTO) 11.1 % (21-51); MEAN CORPUSCULAR HEMOGLOBIN 33.9 PG (27.0-31.0); MEAN CORPUSCULAR HGB CONC 33.8 g/dL (33.0-36.5); MEAN CORPUSCULAR VOLUME 100.3 FL (78-98); MEAN PLATELET VOLUME 7.4 FL (7.4-10.4); MONOCYTES # (AUTO) 1.2 X10'3 (0-0.9); MONOCYTES % (AUTO) 15.7 % (2-12); NEUTROPHILS # (AUTO) 5.5 X10'3 (1.8-7.7); NEUTROPHILS % (AUTO) 72.5 % (42-75); PLATELET COUNT 259 X10'3 (140-440); RED BLOOD COUNT 3.62 X10'6 (4.70-6.10); RED CELL DISTRIBUTION WIDTH 14.1 % (11.5-14.5); WHITE BLOOD COUNT 7.6 X10'3 (4.5-11.0)
[2024-08-15 01:55] LABS: ALANINE AMINOTRANSFERASE 38 U/L (12-78); ALBUMIN 2.4 G/DL (3.4-5.0); ALBUMIN/GLOBULIN RATIO 0.6 (1.1-1.5); ALKALINE PHOSPHATASE 85 IU/L (46-116); ANION GAP 7 (8-16); ASPARTATE AMINO TRANSFERASE 48 U/L (10-37); BILIRUBIN,TOTAL 0.3 MG/DL (0.1-1.0); BLOOD UREA NITROGEN 37 MG/DL (7-18); BUN/CREATININE RATIO 23.9 (10.0-20.0); CALCIUM 8.3 MG/DL (8.5-10.1); CHLORIDE 99 MMOL/L (99-107); CREATININE 1.55 MG/DL (0.60-1.10); GLUCOSE 95 MG/DL (70-104); MAGNESIUM 2.4 MG/DL (1.5-2.4); POTASSIUM 3.5 MMOL/L (3.5-5.1); SODIUM 132 MMOL/L (135-145); TOTAL CARBON DIOXIDE 26.4 MMOL/L (24-32); TOTAL PROTEIN 6.1 G/DL (6.4-8.2); eCRCL 34 ML/MIN; eGFR 44 ML/MIN
[2024-08-15 02:00] VITALS: BP 101/60; PULSE 94; RESP 16; TEMP 97.5; O2SAT 96
[2024-08-15 04:00] VITALS: BP 119/67; PULSE 103
[2024-08-15 06:30] VITALS: BP 109/83; PULSE 105; RESP 20; TEMP 97; O2SAT 96
[2024-08-15 08:10] VITALS: PULSE 90; RESP 20; O2SAT 95
[2024-08-15] MEDS ORDERED: AMIO200T67 PO (10:29)
[2024-08-15] MEDS ORDERED: LEVO-65 PO (10:30)
[2024-08-15 11:00] VITALS: BP 98/70; PULSE 82; RESP 20; TEMP 98.9; O2SAT 100
== END 2024-08-15 16:30 | disposition home or self-care (01) | DRG 308 ==
LOC: ER 09:20 → ED HOLD 11:35 → PCU 3S 18:02
PROVIDERS: ADMIT Internal Medicine; ATTEND Internal Medicine
PROC: BW211ZZ Computerized Tomography (CT Scan) of Abdomen and Pelvis using Low Osmolar Contrast (ICD-10-PCS; principal; 2024-08-13)
DX: I48.0 Paroxysmal atrial fibrillation (principal); N17.0 Acute kidney failure with tubular necrosis; E87.1 Hypo-osmolality and hyponatremia; I13.0 Hypertensive heart and chronic kidney disease with heart failure and stage 1 through stage 4 chronic kidney disease, or unspecified chronic kidney disease; I50.32 Chronic diastolic (congestive) heart failure; N13.6 Pyonephrosis; N30.81 Other cystitis with hematuria; I27.20 Pulmonary hypertension, unspecified; N18.30 Chronic kidney disease, stage 3 unspecified; J44.89 Other specified chronic obstructive pulmonary disease; N40.0 Benign prostatic hyperplasia without lower urinary tract symptoms; E78.5 Hyperlipidemia, unspecified; F17.210 Nicotine dependence, cigarettes, uncomplicated; I08.1 Rheumatic disorders of both mitral and tricuspid valves; F10.10 Alcohol abuse, uncomplicated; F32.A Depression, unspecified; K21.9 Gastro-esophageal reflux disease without esophagitis; G89.29 Other chronic pain; I49.5 Sick sinus syndrome; M47.816 Spondylosis without myelopathy or radiculopathy, lumbar region; G25.81 Restless legs syndrome; Z95.0 Presence of cardiac pacemaker; Z90.81 Acquired absence of spleen; Z80.1 Family history of malignant neoplasm of trachea, bronchus and lung; Z85.51 Personal history of malignant neoplasm of bladder
CPT/HCPCS: 36415; 71045; 74176; 74177; 76770; 80048; 80053; 81001; 82272; 83036; 83605; 83735; 83880; 83930; 83935; 84145; 84295; 84300; 84484; 85025; 85610; 86870; 86885; 86900; 86901; 86902; 86905; 87040; 87077; 87081; 87088; 87186; 92508; 92616; 93005; 93306; 94760; 96365; 96375; 99291; G0378; J0282; J0696; J2470; J3490; J7030; Q9967

== ENCOUNTER 2024-08-22 21:26 | Inpatient (IN) | payer BC, MEDICARE ==
[~2024-08-22] VITALS: Ht 175.3 cm; Wt 63.6 kg
[~2024-08-22 21:26] MED LIST changes: -CALC-157 PO; -CHOL100025 PO; +FLEC100T PO; -FOLI0.4T14 PO; +FURO40TA4 PO; +LEVO-65 PO; -METO25TA6 PO; +METO50TA17 PO; +WARF-55 PO; -tylenol PO
[2024-08-22 22:07] LABS: BASOPHILS # (AUTO) 0.2 X10'3 (0-0.2); EOSINOPHILS # (AUTO) 0.1 X10'3 (0-0.9)
[2024-08-22 22:09] LABS: EOSINOPHILS % (AUTO) 0.6 % (0-6); HEMATOCRIT 38.2 % (42.0-52.0); HEMOGLOBIN 13.1 g/dl (14.0-17.9); LYMPHOCYTES # (AUTO) 2.4 X10'3 (1.1-4.8); LYMPHOCYTES % (AUTO) 15.4 % (21-51); MEAN CORPUSCULAR HEMOGLOBIN 35.1 PG (27.0-31.0); MEAN CORPUSCULAR HGB CONC 34.2 g/dL (33.0-36.5); MEAN CORPUSCULAR VOLUME 102.6 FL (78-98); MEAN PLATELET VOLUME 6.4 FL (7.4-10.4); MONOCYTES # (AUTO) 1.3 X10'3 (0-0.9); MONOCYTES % (AUTO) 8.5 % (2-12); NEUTROPHILS # (AUTO) 11.4 X10'3 (1.8-7.7); NEUTROPHILS % (AUTO) 74.5 % (42-75); PLATELET COUNT 666 X10'3 (140-440); RED BLOOD COUNT 3.73 X10'6 (4.70-6.10); RED CELL DISTRIBUTION WIDTH 14.6 % (11.5-14.5); WHITE BLOOD COUNT 15.3 X10'3 (4.5-11.0)
[2024-08-22 22:34] LABS: ALANINE AMINOTRANSFERASE 118 U/L (12-78); ALBUMIN 3.3 G/DL (3.4-5.0); ALBUMIN/GLOBULIN RATIO 0.8 (1.1-1.5); ALKALINE PHOSPHATASE 176 IU/L (46-116); ANION GAP 5 (8-16); ASPARTATE AMINO TRANSFERASE 62 U/L (10-37); BILIRUBIN,TOTAL 0.8 MG/DL (0.1-1.0); BLOOD UREA NITROGEN 23 MG/DL (7-18); BUN/CREATININE RATIO 15.8 (10.0-20.0); CALCIUM 9.1 MG/DL (8.5-10.1); CHLORIDE 100 MMOL/L (99-107); CREATININE 1.46 MG/DL (0.60-1.10); GLUCOSE 135 MG/DL (70-104); POTASSIUM 5.1 MMOL/L (3.5-5.1); SODIUM 137 MMOL/L (135-145); TOTAL CARBON DIOXIDE 31.9 MMOL/L (24-32); TOTAL PROTEIN 7.5 G/DL (6.4-8.2); eCRCL 42 ML/MIN; eGFR 48 ML/MIN
[2024-08-22 22:42] LABS: PRO BRAIN NATRIURETIC PEPTIDE 16681 PG/ML (0-125)
[2024-08-22] MEDS: nitroGLYCERIN 0.4mg/hour patch TD ONE (23:49)
[2024-08-22] MEDS: metoprolol tartrate 1mg/ml inj IV ONE (23:50)
[2024-08-22] MEDS: metoprolol tartrate 50mg tablet PO ONE (23:50)
[2024-08-23] MEDS: azithromycin/NS 500mg/250ml 250 ML IV ONE (00:57)
[2024-08-23] MEDS: CefTRIAXone 2gm/D5W 50ml BAG 50 ML IV ONE (01:21)
[2024-08-23] MEDS: metoprolol tartrate 1mg/ml inj IV ONE (01:23)
[2024-08-23] MEDS: metoprolol tartrate 50mg tablet PO ONE (01:24)
[2024-08-23] MEDS: furosemide 10 MG/1 ML 10ml inj IV ONE (02:02)
[2024-08-23] MEDS ORDERED: acetaminophen 325mg tablet PO PRN (02:35)
[2024-08-23] MEDS ORDERED: magnesium hydroxide 30ml (MOM) UD suspension PO PRN (02:35)
[2024-08-23] MEDS ORDERED: magnesium sulf-water 2g/50mL 50 ML IV PRN (02:35)
[2024-08-23] MEDS ORDERED: ondansetron/PF 4mg/2ml inj IV PRN (02:35)
[2024-08-23] MEDS ORDERED: potassium Cl 20 mEq SR tablet PO PRN ×2 (02:35)
[2024-08-23] MEDS ORDERED: magnesium sulf-water 4G/100mL 100 ML IV PRN (02:35)
[2024-08-23] MEDS ORDERED: potassium Cl 40MEQ/1/2NS 520ml 520 ML IV PRN (02:35)
[2024-08-23 02:37] VITALS: PULSE 101; RESP 20; O2SAT 95
[2024-08-23] MEDS: ipratropium/albuterol 3ml nebule NEB ONE (02:37)
[2024-08-23 02:44] VITALS: PULSE 89; RESP 19; O2SAT 97
[2024-08-23] MEDS ORDERED: ipratropium/albuterol 3ml nebule NEB PRN (03:40)
[2024-08-23 04:35] LABS: URINE AMPHETAMINE SCREEN NEGATIVE (Neg); URINE BARBITUATE SCREEN NEGATIVE (Neg); URINE BENZODIAZEPINES SCREEN NEGATIVE (Neg); URINE CANNABINOID SCREEN POSITIVE (Neg); URINE COCAINE SCREEN NEGATIVE (Neg); URINE METHADONE SCREEN NEGATIVE (Neg); URINE OPIATE SCREEN POSITIVE (Neg); URINE PHENCYCLIDINE SCREEN NEGATIVE (Neg)
[2024-08-23 07:01] LABS: MAGNESIUM 2.3 MG/DL (1.5-2.4); POTASSIUM 5.2 MMOL/L (3.5-5.1)
[2024-08-23 07:19] LABS: APTT 42 SECONDS (22-32)
[2024-08-23] MEDS: methylPREDNISolone sod succ/PF 40mg inj. IV SCH ×2 (07:54→21:51)
[2024-08-23] MEDS: CefTRIAXone/D5W-Rocephin 1gm 50 ML IV SCH (07:54)
[2024-08-23] MEDS: docusate sod 100mg capsule PO SCH (07:55)
[2024-08-23] MEDS: pantoprazole 40 MG vial IV SCH (07:55)
[2024-08-23] MEDS: metoprolol tartrate 50mg tablet PO SCH (07:55)
[2024-08-23] MEDS: K and/or MAG REPLACEMENT MC SCH (08:00)
[2024-08-23] MEDS ORDERED: furosemide 10 MG/1 ML 10ml inj IV SCH (08:00)
[2024-08-23 08:04] LABS: THYROID STIMULATING HORMONE 3.66 ulU/ml (0.34-4.50)
[2024-08-23 08:13] LABS: ETHANOL < 10 MG/DL (<10)
[2024-08-23] MEDS: diltiazem CD 120mg capsule (once-daily) PO SCH (08:29)
[2024-08-23] MEDS: lactobacillus rhamnosus 10,000 MMU CELLS/CAPSULE PO SCH (08:30)
[2024-08-23] MEDS: furosemide 40mg/4ml inj IV SCH (08:34)
[2024-08-23 08:55] LABS: OSMOLALITY 303 MOSM/K (280-300)
[2024-08-23] MEDS: phytonadione 10 MG/1 ML amp PO SCH (11:20)
[2024-08-23 11:49] LABS: INR 2.8 INR; PROTHROMBIN TIME 27.5 SECONDS (9.0-12.0)
[2024-08-23 13:14] LABS: INR 3.1 INR; PROTHROMBIN TIME 30.3 SECONDS (9.0-12.0)
[2024-08-23] MEDS ORDERED: LORazepam 1 MG tablet PO PRN (14:15)
[2024-08-23 14:56] LABS: CHOL/HDL RATIO 2.6 (0.00-4.99); CHOLESTEROL 96 MG/DL (0-200); HDL CHOLESTEROL 37 MG/DL (35-60); LDL CHOLESTEROL 43 MG/DL (50-100); TRIGLYCERIDES 97 MG/DL (20-135)
[2024-08-23] MEDS: folic acid 1mg tablet PO SCH (15:40)
[2024-08-23] MEDS: thiamine 100mg tablet PO SCH (15:40)
[2024-08-23] MEDS: ipratropium/albuterol 3ml nebule NEB PRN (16:45)
[2024-08-23 16:46] VITALS: PULSE 94; RESP 18; O2SAT 93
[2024-08-23 16:56] VITALS: PULSE 106; RESP 16
[2024-08-23 20:00] VITALS: RESP 16; O2SAT 91
[2024-08-23 20:30] VITALS: BP 109/58; PULSE 101; RESP 16; TEMP 97.8; O2SAT 91
[2024-08-23] MEDS ORDERED: warfarin 5mg tablet PO SCH (21:00)
[2024-08-23] MEDS: furosemide 20 MG/2 ML vial IV SCH (21:52)
[2024-08-23 22:49] LABS: BILIRUBIN,URINE NEGATIVE (Neg); CLARITY,URINE CLEAR (Clear); COLOR,URINE YELLOW (Yellow); GLUCOSE, URINE NEGATIVE (Neg); KETONES,URINE NEGATIVE (Neg); LEUKOCYTE ESTERASE ,URINE NEGATIVE (Neg); NITRITES, URINE NEGATIVE (Neg); OCCULT BLOOD,URINE NEGATIVE (Neg); PROTEIN,URINE NEGATIVE (Neg); UROBILINOGEN,URINE 0.2 E.U/dL (0.2-1.0)
[2024-08-23 22:57] LABS: UA COLLECTION TYPE URINAL
[2024-08-24] VITALS (15 sets, daily range): BP systolic 98–135; BP diastolic 53–79; PULSE 70–110; RESP 12–20; TEMP 97.6–98.3; O2SAT 91–98
[2024-08-24 06:39] LABS: BASOPHILS # (AUTO) 0.1 X10'3 (0-0.2); EOSINOPHILS % (AUTO) 0 % (0-6); HEMOGLOBIN 13.1 g/dl (14.0-17.9); MEAN PLATELET VOLUME 6.7 FL (7.4-10.4); MONOCYTES # (AUTO) 0.2 X10'3 (0-0.9)
[2024-08-24 06:41] LABS: BASOPHILS % (AUTO) 0.7 % (0-1); HEMATOCRIT 38.9 % (42.0-52.0); LYMPHOCYTES # (AUTO) 0.9 X10'3 (1.1-4.8); LYMPHOCYTES % (AUTO) 6.4 % (21-51); MEAN CORPUSCULAR HEMOGLOBIN 34.2 PG (27.0-31.0); MEAN CORPUSCULAR HGB CONC 33.8 g/dL (33.0-36.5); MEAN CORPUSCULAR VOLUME 101.3 FL (78-98); MONOCYTES % (AUTO) 1.6 % (2-12); NEUTROPHILS # (AUTO) 13.1 X10'3 (1.8-7.7); NEUTROPHILS % (AUTO) 91.3 % (42-75); PLATELET COUNT 624 X10'3 (140-440); RED BLOOD COUNT 3.83 X10'6 (4.70-6.10); RED CELL DISTRIBUTION WIDTH 14.5 % (11.5-14.5); WHITE BLOOD COUNT 14.3 X10'3 (4.5-11.0)
[2024-08-24 07:04] LABS: INR 1.5 INR; PROTHROMBIN TIME 14.9 SECONDS (9.0-12.0)
[2024-08-24 07:16] LABS: ALANINE AMINOTRANSFERASE 73 U/L (12-78); ALBUMIN 2.6 G/DL (3.4-5.0); ALBUMIN/GLOBULIN RATIO 0.7 (1.1-1.5); ALKALINE PHOSPHATASE 142 IU/L (46-116); ANION GAP 10 (8-16); ASPARTATE AMINO TRANSFERASE 31 U/L (10-37); BILIRUBIN,TOTAL 0.7 MG/DL (0.1-1.0); BLOOD UREA NITROGEN 32 MG/DL (7-18); BUN/CREATININE RATIO 21.6 (10.0-20.0); CALCIUM 9.1 MG/DL (8.5-10.1); CHLORIDE 97 MMOL/L (99-107); CREATININE 1.48 MG/DL (0.60-1.10); GLUCOSE 149 MG/DL (70-104); MAGNESIUM 2.1 MG/DL (1.5-2.4); PRO BRAIN NATRIURETIC PEPTIDE 14186 PG/ML (0-125); SODIUM 137 MMOL/L (135-145); TOTAL CARBON DIOXIDE 30.5 MMOL/L (24-32); TOTAL PROTEIN 6.6 G/DL (6.4-8.2); eCRCL 41 ML/MIN; eGFR 47 ML/MIN
[2024-08-24 07:21] LABS: POTASSIUM 4.8 MMOL/L (3.5-5.1)
[2024-08-24] MEDS ORDERED: furosemide 20 MG/2 ML vial IV SCH (08:00)
[2024-08-24] MEDS: MIDAZolam 5mg/ml 2ml vial IV STA (08:01)
[2024-08-24] MEDS: enoxaparin 60mg/0.6ml syringe SUBCUT ONE (08:17)
[2024-08-24] MEDS: amiodarone 150mg/dext, iso-os 100 ML IV STA (08:18)
[2024-08-24] MEDS: midazolam 1 mg/ML 2ml injection IV STA (09:42)
[2024-08-24] MEDS: morphine 10mg/ml inj. IV ONE (09:43)
[2024-08-24] MEDS ORDERED: FLU VACC TS2024-25(6MOS UP)/PF 45 MCG/0.5 ML SYRINGE IMVAC ONE (10:00)
[2024-08-24] MEDS: flecainide 50mg tablet PO SCH (11:16)
[2024-08-24] MEDS: azithromycin 250mg tablet PO SCH (11:16)
[2024-08-24] MEDS ORDERED: LACT1CAP26 PO (11:58)
[2024-08-24] MEDS ORDERED: FURO40TA4 PO (11:58)
[2024-08-24] MEDS ORDERED: PRED10TA23 PO (12:21)
[2024-08-24] MEDS ORDERED: warfarin 5mg tablet PO ONE (21:00)
== END 2024-08-24 14:05 | disposition home or self-care (01) | DRG 308 ==
LOC: ER 21:27 → ED HOLD 08-23 02:38 → PCU 3S 08-23 16:34
PROVIDERS: ADMIT Internal Medicine Critical Care Medicine; ATTEND Family Medicine
PROC: 5A2204Z Restoration of Cardiac Rhythm, Single (ICD-10-PCS; principal; 2024-08-24)
DX: I48.19 Other persistent atrial fibrillation (principal); J18.9 Pneumonia, unspecified organism; I13.0 Hypertensive heart and chronic kidney disease with heart failure and stage 1 through stage 4 chronic kidney disease, or unspecified chronic kidney disease; I50.32 Chronic diastolic (congestive) heart failure; J44.0 Chronic obstructive pulmonary disease with (acute) lower respiratory infection; F10.10 Alcohol abuse, uncomplicated; F32.A Depression, unspecified; M54.9 Dorsalgia, unspecified; G89.29 Other chronic pain; K21.9 Gastro-esophageal reflux disease without esophagitis; I49.5 Sick sinus syndrome; G25.81 Restless legs syndrome; E78.5 Hyperlipidemia, unspecified; F17.210 Nicotine dependence, cigarettes, uncomplicated; Z90.81 Acquired absence of spleen; Z95.0 Presence of cardiac pacemaker; Z85.51 Personal history of malignant neoplasm of bladder
CPT/HCPCS: 36415; 71045; 80053; 80061; 80305; 80320; 81003; 82570; 83605; 83735; 83880; 83930; 83935; 84132; 84145; 84443; 84484; 85025; 85610; 85730; 87040; 87081; 87207; 87502; 87503; 87811; 90686; 93005; 94640; 94760; 99285; A4615; G0378; J0282; J0456; J0696; J1650; J1940; J2250; J2274; J2470; J2919; J3430; J3490; J7030; J7120

== ENCOUNTER 2024-11-03 17:56 | Inpatient (IN) | payer BC, MEDICARE ==
[~2024-11-03] VITALS: Ht 175.3 cm; Wt 55.8 kg
[~2024-11-03 17:56] MED LIST changes: +LACT1CAP26 PO; -LEVO-65 PO
[2024-11-03 18:45] LABS: BASOPHILS # (AUTO) 0.1 X10'3 (0-0.2); BASOPHILS % (AUTO) 0.8 % (0-1); EOSINOPHILS # (AUTO) 0.1 X10'3 (0-0.9); EOSINOPHILS % (AUTO) 1.1 % (0-6); HEMATOCRIT 27.5 % (42.0-52.0); HEMOGLOBIN 9.5 g/dl (14.0-17.9); LYMPHOCYTES # (AUTO) 3.2 X10'3 (1.1-4.8); LYMPHOCYTES % (AUTO) 30.6 % (21-51); MEAN CORPUSCULAR HEMOGLOBIN 34.6 PG (27.0-31.0); MEAN CORPUSCULAR HGB CONC 34.4 g/dL (33.0-36.5); MEAN CORPUSCULAR VOLUME 100.5 FL (78-98); MONOCYTES # (AUTO) 0.8 X10'3 (0-0.9); MONOCYTES % (AUTO) 7.3 % (2-12); NEUTROPHILS # (AUTO) 6.2 X10'3 (1.8-7.7); NEUTROPHILS % (AUTO) 60.2 % (42-75); PLATELET COUNT 280 X10'3 (140-440); RED BLOOD COUNT 2.74 X10'6 (4.70-6.10); RED CELL DISTRIBUTION WIDTH 14.2 % (11.5-14.5); WHITE BLOOD COUNT 10.3 X10'3 (4.5-11.0)
[2024-11-03 19:11] LABS: ALANINE AMINOTRANSFERASE 35 U/L (12-78); ALBUMIN 3.4 G/DL (3.4-5.0); ALKALINE PHOSPHATASE 103 IU/L (46-116); ANION GAP 5 (8-16); ASPARTATE AMINO TRANSFERASE 36 U/L (10-37); BILIRUBIN,TOTAL 0.4 MG/DL (0.1-1.0); BLOOD UREA NITROGEN 77 MG/DL (7-18); CALCIUM 9.4 MG/DL (8.5-10.1); CHLORIDE 103 MMOL/L (99-107); GLUCOSE 101 MG/DL (70-104); POTASSIUM 5.4 MMOL/L (3.5-5.1); PRO BRAIN NATRIURETIC PEPTIDE 1619 PG/ML (0-125); SODIUM 136 MMOL/L (135-145); TOTAL CARBON DIOXIDE 28.5 MMOL/L (24-32); TOTAL PROTEIN 6.8 G/DL (6.4-8.2); eCRCL 38 ML/MIN; eGFR 50 ML/MIN
[2024-11-03] MEDS: normal saline 1000ML IV soln IVB ONE (21:02)
[2024-11-03] MEDS ORDERED: pantoprazole 40mg IV 80 MG in normal saline 100ml IV soln 100 ML IV ONE (21:15)
[2024-11-03 21:25] LABS: OCCULT BLOOD STOOL POSITIVE (Neg)
[2024-11-03] MEDS: pantoprazole 40 MG vial IV ONE (21:35)
[2024-11-03] MEDS ORDERED: PANT40TA54 PO (21:42)
[2024-11-03 21:46] LABS: APTT 67 SECONDS (22-32); PROTHROMBIN TIME 66.9 SECONDS (9.0-12.0)
[2024-11-03] MEDS ORDERED: TAM50T PO (21:47)
[2024-11-03] MEDS ORDERED: FURO-150 PO (21:47)
[2024-11-03 21:54] LABS: INR 7.4 INR
[2024-11-03] MEDS ORDERED: phytonadione inj. 5 MG in normal saline 100ml IV soln 100 ML IV ONE (22:00)
[2024-11-03] MEDS: traMADol 50MG tablet PO ONE (22:16)
[2024-11-03] MEDS: gabapentin 300mg capsule PO ONE (22:16)
[2024-11-03] MEDS: phytonadione 10 MG/1 ML amp PO ONE (22:47)
[2024-11-03] MEDS ORDERED: potassium Cl 40MEQ/1/2NS 520ml 520 ML IV PRN (22:50)
[2024-11-03] MEDS ORDERED: ondansetron/PF 4mg/2ml inj IV PRN (22:50)
[2024-11-03] MEDS ORDERED: docusate sod 100mg capsule PO PRN (22:50)
[2024-11-03] MEDS ORDERED: morphine 2 MG/ML inj. syringe IV PRN ×2 (22:50)
[2024-11-03] MEDS ORDERED: magnesium sulf-water 4G/100mL 100 ML IV PRN (22:50)
[2024-11-03] MEDS ORDERED: acetaminophen 325mg tablet PO PRN (22:50)
[2024-11-03] MEDS ORDERED: magnesium hydroxide 30ml (MOM) UD suspension PO PRN (22:50)
[2024-11-03] MEDS ORDERED: potassium Cl 20 mEq SR tablet PO PRN ×2 (22:50)
[2024-11-03] MEDS ORDERED: magnesium sulf-water 2g/50mL 50 ML IV PRN (22:50)
[2024-11-03] MEDS ORDERED: mag hydrox/Alum hydrox/simeth 30ml oral suspension PO PRN (22:50)
[2024-11-03] MEDS ORDERED: magnesium Cl slow-release 64mg tablet PO PRN (22:50)
[2024-11-03 23:50] VITALS: BP 113/43; PULSE 75; RESP 19; TEMP 98.1; O2SAT 97
[2024-11-04] VITALS (21 sets, daily range): BP systolic 82–119; BP diastolic 42–76; PULSE 59–107; RESP 14–20; TEMP 97.4–98.2; O2SAT 90–100
[2024-11-04] MEDS: normal saline 1000ml 1,000 ML IV SCH (00:14)
[2024-11-04 01:50] LABS: MEAN CORPUSCULAR HEMOGLOBIN 34.6 PG (27.0-31.0); MEAN CORPUSCULAR HGB CONC 34.5 g/dL (33.0-36.5); MEAN CORPUSCULAR VOLUME 100.4 FL (78-98); MEAN PLATELET VOLUME 7.2 FL (7.4-10.4); PLATELET COUNT 220 X10'3 (140-440); RED BLOOD COUNT 1.98 X10'6 (4.70-6.10); WHITE BLOOD COUNT 9.1 X10'3 (4.5-11.0)
[2024-11-04 02:04] LABS: HEMATOCRIT 19.9 % (42.0-52.0); HEMOGLOBIN 6.8 g/dl (14.0-17.9)
[2024-11-04 06:46] LABS: BASOPHILS # (AUTO) 0.1 X10'3 (0-0.2); BASOPHILS % (AUTO) 1.1 % (0-1); EOSINOPHILS # (AUTO) 0.3 X10'3 (0-0.9); EOSINOPHILS % (AUTO) 3.8 % (0-6); HEMATOCRIT 23.6 % (42.0-52.0); HEMOGLOBIN 7.9 g/dl (14.0-17.9); LYMPHOCYTES # (AUTO) 2.8 X10'3 (1.1-4.8); LYMPHOCYTES % (AUTO) 32.1 % (21-51); MEAN CORPUSCULAR HEMOGLOBIN 32.3 PG (27.0-31.0); MEAN CORPUSCULAR HGB CONC 33.7 g/dL (33.0-36.5); MEAN PLATELET VOLUME 7.2 FL (7.4-10.4); MONOCYTES # (AUTO) 0.9 X10'3 (0-0.9); MONOCYTES % (AUTO) 10.5 % (2-12); NEUTROPHILS # (AUTO) 4.6 X10'3 (1.8-7.7); NEUTROPHILS % (AUTO) 52.5 % (42-75); PLATELET COUNT 210 X10'3 (140-440); RED BLOOD COUNT 2.46 X10'6 (4.70-6.10); RED CELL DISTRIBUTION WIDTH 17.8 % (11.5-14.5); WHITE BLOOD COUNT 8.8 X10'3 (4.5-11.0)
[2024-11-04 07:01] LABS: APTT 52 SECONDS (22-32); PROTHROMBIN TIME 48.1 SECONDS (9.0-12.0)
[2024-11-04 07:36] LABS: TOTAL IRON BINDING CAPACITY 231 UG/DL (259-388)
[2024-11-04 07:37] LABS: ALANINE AMINOTRANSFERASE 35 U/L (12-78); ALBUMIN 2.8 G/DL (3.4-5.0); ALBUMIN/GLOBULIN RATIO 1.1 (1.1-1.5); ALKALINE PHOSPHATASE 77 IU/L (46-116); ANION GAP 8 (8-16); ASPARTATE AMINO TRANSFERASE 31 U/L (10-37); BILIRUBIN,TOTAL 0.8 MG/DL (0.1-1.0); BLOOD UREA NITROGEN 69 MG/DL (7-18); BUN/CREATININE RATIO 58.5 (10.0-20.0); CALCIUM 7.8 MG/DL (8.5-10.1); CHLORIDE 106 MMOL/L (99-107); CREATININE 1.18 MG/DL (0.60-1.10); FERRITIN 71 NG/ML (26-388); GLUCOSE 85 MG/DL (70-104); SODIUM 140 MMOL/L (135-145); TOTAL CARBON DIOXIDE 26.4 MMOL/L (24-32); TOTAL PROTEIN 5.3 G/DL (6.4-8.2); eCRCL 45 ML/MIN; eGFR 61 ML/MIN
[2024-11-04] MEDS: K and/or MAG REPLACEMENT MC SCH (07:54)
[2024-11-04] MEDS: nicotine 14mg patch - 24hr TD SCH (07:54)
[2024-11-04] MEDS: pantoprazole 40 MG vial IV SCH (07:55)
[2024-11-04 08:01] LABS: INR 5.2 INR
[2024-11-04 08:19] LABS: % IRON SATURATION 77 % (11-46); IRON 177 UG/DL (53-167)
[2024-11-04] MEDS ORDERED: iron dextran complex inj. 0 MG in normal saline 500ml IV soln 500 ML IV ONE (10:05)
[2024-11-04] MEDS ORDERED: iron dextran complex inj. 25 MG in normal saline 50ml IV soln 49.5 ML IV ONE (10:20)
[2024-11-04] MEDS: iron dextran complex inj. 25 MG in normal saline 100ml IV soln 100 ML IV ONE (11:04)
[2024-11-04 12:07] LABS: MEAN CORPUSCULAR HEMOGLOBIN 32.1 PG (27.0-31.0); MEAN CORPUSCULAR HGB CONC 33.3 g/dL (33.0-36.5); MEAN CORPUSCULAR VOLUME 96.5 FL (78-98); MEAN PLATELET VOLUME 6.9 FL (7.4-10.4); PLATELET COUNT 192 X10'3 (140-440); RED BLOOD COUNT 2.16 X10'6 (4.70-6.10); WHITE BLOOD COUNT 8.3 X10'3 (4.5-11.0)
[2024-11-04 12:08] LABS: HEMOGLOBIN 6.9 g/dl (14.0-17.9)
[2024-11-04 12:09] LABS: HEMATOCRIT 20.8 % (42.0-52.0)
[2024-11-04 12:19] LABS: INR 1.9 INR
[2024-11-04] MEDS: phytonadione inj. 5 MG in normal saline 100ml IV soln 100 ML IV ONE (12:21)
[2024-11-04] MEDS ORDERED: IRON DEXTRAN COMPLEX IV ONE (13:00)
[2024-11-04] MEDS ORDERED: NORMAL SALINE IV ONE (13:00)
[2024-11-04] MEDS ORDERED: propofol 10mg/ml 20ml vial IV ONE (13:25)
[2024-11-04] MEDS: iron dextran complex inj. 100 MG in normal saline 100ml IV soln 100 ML IV ONE (17:49)
[2024-11-04] MEDS: flecainide 50mg tablet PO SCH (19:47)
[2024-11-04] MEDS: gabapentin 300mg capsule PO SCH (19:47)
[2024-11-04] MEDS: diltiazem CD 120mg capsule (once-daily) PO SCH (19:48)
[2024-11-04 20:46] LABS: HEMATOCRIT 24.7 % (42.0-52.0); HEMOGLOBIN 8.4 g/dl (14.0-17.9); MEAN CORPUSCULAR HEMOGLOBIN 32.2 PG (27.0-31.0); MEAN CORPUSCULAR HGB CONC 33.9 g/dL (33.0-36.5); MEAN CORPUSCULAR VOLUME 95.1 FL (78-98); MEAN PLATELET VOLUME 6.8 FL (7.4-10.4); PLATELET COUNT 195 X10'3 (140-440); RED CELL DISTRIBUTION WIDTH 18.4 % (11.5-14.5); WHITE BLOOD COUNT 7.6 X10'3 (4.5-11.0)
[2024-11-04] MEDS: metoprolol tartrate 50mg tablet PO SCH (22:03)
[2024-11-05 02:00] VITALS: BP 110/50; PULSE 75; RESP 16; TEMP 97.8; O2SAT 93
[2024-11-05 03:44] LABS: HEMATOCRIT 25.2 % (42.0-52.0); HEMOGLOBIN 8.4 g/dl (14.0-17.9); MEAN CORPUSCULAR HEMOGLOBIN 31.8 PG (27.0-31.0); MEAN CORPUSCULAR HGB CONC 33.5 g/dL (33.0-36.5); MEAN CORPUSCULAR VOLUME 94.9 FL (78-98); MEAN PLATELET VOLUME 6.7 FL (7.4-10.4); PLATELET COUNT 219 X10'3 (140-440); RED BLOOD COUNT 2.66 X10'6 (4.70-6.10); RED CELL DISTRIBUTION WIDTH 18.7 % (11.5-14.5); WHITE BLOOD COUNT 7.8 X10'3 (4.5-11.0)
[2024-11-05 06:00] VITALS: BP 100/56; PULSE 74; RESP 17; TEMP 98; O2SAT 94
[2024-11-05 06:13] LABS: BASOPHILS # (AUTO) 0.1 X10'3 (0-0.2); EOSINOPHILS # (AUTO) 0.3 X10'3 (0-0.9); EOSINOPHILS % (AUTO) 3.7 % (0-6); HEMATOCRIT 25.6 % (42.0-52.0); HEMOGLOBIN 8.6 g/dl (14.0-17.9); LYMPHOCYTES # (AUTO) 2.1 X10'3 (1.1-4.8); LYMPHOCYTES % (AUTO) 26.2 % (21-51); MEAN CORPUSCULAR HGB CONC 33.7 g/dL (33.0-36.5); MEAN CORPUSCULAR VOLUME 94.9 FL (78-98); MEAN PLATELET VOLUME 6.9 FL (7.4-10.4); MONOCYTES # (AUTO) 0.8 X10'3 (0-0.9); MONOCYTES % (AUTO) 10.4 % (2-12); NEUTROPHILS # (AUTO) 4.7 X10'3 (1.8-7.7); NEUTROPHILS % (AUTO) 58.7 % (42-75); PLATELET COUNT 215 X10'3 (140-440); RED CELL DISTRIBUTION WIDTH 18.9 % (11.5-14.5)
[2024-11-05 06:16] LABS: INR 1.2 INR; PROTHROMBIN TIME 12.1 SECONDS (9.0-12.0)
[2024-11-05 06:20] LABS: APTT 29 SECONDS (22-32)
[2024-11-05 06:38] LABS: ALANINE AMINOTRANSFERASE 42 U/L (12-78); ALBUMIN 2.9 G/DL (3.4-5.0); ALBUMIN/GLOBULIN RATIO 1.1 (1.1-1.5); ALKALINE PHOSPHATASE 83 IU/L (46-116); ANION GAP 7 (8-16); ASPARTATE AMINO TRANSFERASE 38 U/L (10-37); BILIRUBIN,TOTAL 0.7 MG/DL (0.1-1.0); BLOOD UREA NITROGEN 40 MG/DL (7-18); BUN/CREATININE RATIO 38.5 (10.0-20.0); CALCIUM 7.9 MG/DL (8.5-10.1); CHLORIDE 108 MMOL/L (99-107); CREATININE 1.04 MG/DL (0.60-1.10); GLUCOSE 81 MG/DL (70-104); MAGNESIUM 1.9 MG/DL (1.5-2.4); PHOSPHORUS 2.7 MG/DL (2.3-4.5); POTASSIUM 4.1 MMOL/L (3.5-5.1); SODIUM 142 MMOL/L (135-145); TOTAL CARBON DIOXIDE 27.3 MMOL/L (24-32); TOTAL PROTEIN 5.6 G/DL (6.4-8.2); eCRCL 51 ML/MIN; eGFR 70 ML/MIN
[2024-11-05 10:00] VITALS: BP 108/54; PULSE 73; RESP 17; TEMP 98.1; O2SAT 95
[2024-11-05] MEDS ORDERED: DULO-31 PO (12:31)
== END 2024-11-05 14:00 | disposition home or self-care (01) | DRG 378 ==
LOC: ER 17:57 → ED HOLD 22:08 → ORTHO 4S 23:45
PROVIDERS: ADMIT Internal Medicine; ATTEND Internal Medicine
PROC: 30233K1 Transfusion of Nonautologous Frozen Plasma into Peripheral Vein, Percutaneous Approach (ICD-10-PCS; 2024-11-04)
PROC: 30233N1 Transfusion of Nonautologous Red Blood Cells into Peripheral Vein, Percutaneous Approach (ICD-10-PCS; 2024-11-04)
PROC: 0DB78ZX Excision of Stomach, Pylorus, Via Natural or Artificial Opening Endoscopic, Diagnostic (ICD-10-PCS; principal; 2024-11-04 13:25)
DX: K29.71 Gastritis, unspecified, with bleeding (principal); D68.69 Other thrombophilia; I50.32 Chronic diastolic (congestive) heart failure; I13.0 Hypertensive heart and chronic kidney disease with heart failure and stage 1 through stage 4 chronic kidney disease, or unspecified chronic kidney disease; N17.9 Acute kidney failure, unspecified; I48.91 Unspecified atrial fibrillation; G25.81 Restless legs syndrome; E87.5 Hyperkalemia; D53.1 Other megaloblastic anemias, not elsewhere classified; N18.30 Chronic kidney disease, stage 3 unspecified; Z87.891 Personal history of nicotine dependence; Z79.899 Other long term (current) drug therapy; Z90.81 Acquired absence of spleen; Z95.0 Presence of cardiac pacemaker; Z85.51 Personal history of malignant neoplasm of bladder; Z86.73 Personal history of transient ischemic attack (TIA), and cerebral infarction without residual deficits; Z79.01 Long term (current) use of anticoagulants; Z90.49 Acquired absence of other specified parts of digestive tract
CPT/HCPCS: 36415; 36430; 43239; 71045; 80053; 82272; 82728; 83540; 83550; 83735; 83880; 84100; 84132; 84466; 84484; 85025; 85027; 85610; 85730; 86870; 86885; 86900; 86901; 86902; 86905; 86922; 87081; 93005; 96374; 97161; 97530; 99291; A4620; A6212; G0378; J1750; J2470; J2704; J3430; J7030; J7040; P9016; P9059

== ENCOUNTER 2025-02-22 13:03 | Inpatient (IN) | payer BC, MEDICARE ==
[2025-02-22] VITALS (8 sets, daily range): BP systolic 79–100; BP diastolic 26–44; PULSE 70–83; RESP 11–23; TEMP 97.4–98.6; O2SAT 90–95
[~2025-02-22] VITALS: Ht 175.3 cm; Wt 57.3 kg
[~2025-02-22 13:03] MED LIST changes: +FURO-150 PO; -FURO40TA4 PO; +TAM50T PO
--- NOTE | 2025-02-22 13:19 | ELECTROCARDIOGRAPH REPORT ---
[facility] Test Date: 2025-02-22 Test Time: 13:17:54 Pat Name: SAILAJA HUI Department: EMERGENCY ROOM Room: Gender: M Supervisor [employer]: KATERINA : 1955 Requested By: KASSANDRA DASILVA Order Number: [id number] Reading MD: Dr. Werner Salder Measurements Intervals [place] Rate: 72 P: 0 SD: 224 QRS: 45 QRSD: 101 T: 61 QT: 430 QTc: 471 Interpretive Statements Atrial-paced complexes Prolonged SD interval Borderline T wave abnormalities Electronically Signed On 02-22-2025 15:00:[address] Werner Sadler Please click the below link to view image of tracing.
[2025-02-22 13:34] LABS: MEAN PLATELET VOLUME 6.9 FL (7.4-10.4); RED CELL DISTRIBUTION WIDTH 16.1 % (11.5-14.5)
--- NOTE | 2025-02-22 13:46 | Physician Documentation ---
History of Present Illness ~ Chief Complaint: Weakness Stated Complaint: WEAKNESS Time Seen by MD: 13:43 OK to notify your PCP?: Yes Primary Medical Doctor: Bj Source: patient, RN/, RN notes reviewed, old records Mode of Arrival: POV Exam Limitations: no limitations HPI 69 year old male with a history of upper GI bleeds, Afib, esophogitis, and chronic pain presents to the emergency department for complaints of weakness and some shortness of breath. Patient states he had the nuerovirus two weeks ago and has been feeling weak since then. Additionally patient has fallen twice recently but denies any head strike or loss of consciousness. Patient is on blood thinners. He also states that he has been having abdominal pain as he has not been eating. Patient endorses having black stools. Patient denies any other associated symptoms at this time. Patient denies any other alleviating or exacerbating factors. Medication Reconciliation Allergies: Coded Allergies: No Known Allergies (Unverified , 11/03/24) Scheduled Amiodarone Hcl (Cordarone), 1 TAB PO DAILY, (Reported) Atorvastatin Calcium (Atorvastatin Calcium), 1 TAB PO HS, (Reported) Calcium Carbonate (Calcium), 2 TAB PO DAILY, (Reported) Cyanocobalamin (B-12 Dots), 500 MCG PO DAILY, (Reported) Diltiazem HCl (Dilt-Xr), 1 CAP PO DAILY, (Reported) Ferrous Sulfate (Iron), 1 TAB PO Q12H, (Reported) Furosemide* (Lasix*), 1 TAB PO DAILY, (Reported) Gabapentin (Neurontin), 1 TAB PO BID, (Reported) Metoprolol Tartrate* (Metoprolol Tartrate*), 1 TAB PO BID, (Reported) Pantoprazole Sodium (Pantoprazole Sodium), 40 MG PO BID, (Reported) Tramadol HCl (Tramadol HCl), 1 TABLET PO BID, (Reported) Warfarin Sodium (Warfarin Sodium), 1 TAB PO DAILY, (Reported) [vit c ], 500 MG DAILY, (Reported) Scheduled PRN Alprazolam (Alprazolam), 1 TAB PO BID PRN for anxiety, (Reported) Discontinued Medications Duloxetine Hcl* (Cymbalta*), 30 MG PO DAILY Discontinued Reason: patient no longer taking Flecainide Acetate (Flecainide Acetate), 1 TAB PO, (Reported) Discontinued Reason: completed med therapy Flecainide Acetate (Tambocor), 2 TAB PO Q12H, (Reported) Discontinued Reason: completed med therapy Lactobacillus Rhamnosus (Culturelle), 1 CAP PO BID Discontinued Reason: patient no longer taking Past Medical History Past Medical History: CVA/TIA/Stroke, *CARDIOVASCULAR*, Atrial Fibrillation, Hypertension, GI Bleed, Anemia, Chronic Back Pain, *CANCER* Past Surgical History: pacemaker Other Past Surgical History: Splenectomy Patient History: FH: cancer FATHER, FH: diabetes mellitus FHx: heart disease Alcohol Use: Rarely Drug Use: marijuana Lives with: Family Lives In: Home Occupation: retired Review of Systems All Other Systems at this time: Reviewed and Negative ROS As stated above in the HPI, otherwise all systems are reviewed and negative. Physical Exam Vital Signs: RN Vital Signs have been reviewed: Yes, Temperature: 97.5, Source: Temporal, Heart Rate: 81, Respiratory Rate: 15, BP: 167/140, Pulse Oximetry: 94, Weight: 57.270 Pulse Oximetry Reflects: adequate oxygenation Physical Exam General: The patient is well developed, well nourished, nontoxic appearing and is in no acute distress. Skin: [place], warm and dry with no rashes. HEENT: Head was normocephalic and atraumatic. Eyes - pupils equal, round, reactive to light and accommodation. Extraocular movements were intact. Conjunctivae were nonicteric. Ears - bilateral tympanic membranes were normal. The mouth and oropharynx were clear with moist mucous membranes. There were no pharyngeal exudates or erythema. Neck: Supple and nontender. There was no jugular venous distention, lymphadenopathy, thyromegaly or masses. Chest: Clear to auscultation bilaterally without wheezes, rales or rhonchi. No accessory muscle use. No dullness to percussion. Heart: Rate regular and rhythmic. S1, S2. No murmurs. Palpation of the chest wall was normal. No rubs or thrills. Abdomen: Hyperactive bowel sounds. Soft, nontender and nondistended. No guarding or rebound. No hepatosplenomegaly or palpable masses. Extremities: No cyanosis, clubbing or edema. The patient moves all extremities. Pulses were equal and symmetric. Neurologic: Cranial nerves II-XII were intact. Sensation was intact to light touch throughout. Motor strength was 5/5 in all four extremities. Deep tendon reflexes were intact in both upper and lower extremities. Psychologic: The patient was oriented to person, place and time. The patient demonstrated appropriate judgement and insight. Rectal: Black stools noted outside the rectum. Patient is guaiac positive. Progress Progress Note 1539: The case was discussed with the hospitalist who was informed on the patients case and kindly agreed to admission. 1553: A message was left with Dr. Linares at this time informing them on the patient. 1605: The case was discussed Dr. Linares who agreed to see the patient. Results/Orders Reviewed/noted all lab results: Yes Results/Orders Orders - SHAHEEN SADLER MD Type And Screen (02/22/25 13:44) Lrpc - Active Bleeding (02/22/25 13:44) Gastrocult Set Up (02/22/25 13:44) Hemocult Set Up (02/22/25 13:44) Normal Saline 1000ml (Sodium Chloride 10 (02/22/25 13:45) Monitor (02/22/25 13:44) Saline Lock (02/22/25 13:44) Page Hospitalist (02/22/25 15:26) Fill Out Med Reconciliation (02/22/25 15:26) To [place] (02/22/25 15:39) Lrpc - Active Bleeding (02/22/25 14:03) Completed Orders - SHAHEEN SADLER MD Ethanol (02/22/25 13:44) MG (02/22/25 13:44) Pt Inr (02/22/25 13:44) PTT (02/22/25 13:44) Hs Troponin I W Calculations (02/22/25 13:44) Pantoprazole 40mg Iv (Protonix 40mg Iv) (02/22/25 13:45) Liver Panel (02/22/25 13:44) Pantoprazole 40mg/Ns 100ml Bag (Protonix (02/22/25 15:40) Pantoprazole 40mg Iv (Protonix 40mg Iv) (02/22/25 15:50) Thyroid Panel (02/22/25 13:23) Vital Signs 02/22/25 02/22/25 02/22/25 13:04 14:01 15:15 Temp 97.5 Pulse 81 71 Resp 15 14 B/P (MAP) 167/140 92/34 (53) Pulse Ox 94 98 O2 Flow Rate 0 Laboratory Tests Test 02/22/25 13:23 02/22/25 15:45 White Blood Count 10.4 Red Blood Count 1.51 L Hemoglobin 5.4 *L Hematocrit 16.1 *L Mean Corpuscular Volume 107.0 H Mean Corpuscular Hemoglobin 35.9 H Mean Corpuscular Hemoglobin Concent 33.6 Red Cell Distribution Width 16.1 H Platelet Count 303 Mean Platelet Volume 6.9 L Neutrophils (%) (Auto) 68.9 Lymphocytes (%) (Auto) 18.2 L Monocytes (%) (Auto) 11.3 Eosinophils (%) (Auto) 0.8 Basophils (%) (Auto) 0.8 Neutrophils # (Auto) 7.2 Lymphocytes # (Auto) 1.9 Monocytes # (Auto) 1.2 H Eosinophils # (Auto) 0.1 Basophils # (Auto) 0.1 CBC Comment Differential Total Cells Counted 100 Neutrophils % (Manual) 74.0 Band Neutrophils % 1.0 Lymphocytes % (Manual) 12.0 L Monocytes % (Manual) 12.0 Metamyelocytes % 1.0 H Nucleated Red Blood Cells 5 H Platelet Estimate Normal Red Blood Cell Morphology Perf Polychromasia 1+ Basophilic Stippling Anisocytosis 1+ Macrocytosis 1+ Stomatocytes Few Prothrombin Time 89.9 H INR International Normalized Ratio > 8.0 *H Activated Partial Thromboplast Time 66 H Coagulation Comments Sodium Level 134 L Potassium Level 4.4 Chloride Level 101 Carbon Dioxide Level 27.8 Anion Gap 5 L Blood Urea Nitrogen 48 H Creatinine 1.57 H Estimated GFR/1.73 m2 44 BUN/Creatinine Ratio 30.6 H Glucose Level 118 H Calcium Level 8.1 L Magnesium Level 2.1 Total Bilirubin 0.3 Direct Bilirubin 0.1 Aspartate Amino Transf (AST/SGOT) 34 Alanine Aminotransferase (ALT/SGPT) 38 Alkaline Phosphatase 72 Troponin I High Sensitivity 8 Total Protein 5.7 L Albumin 3.0 L Globulin 2.7 Albumin/Globulin Ratio 1.1 Thyroid Stimulating Hormone (TSH) 2.57 Free Thyroxine 1.31 Chemistry Comments Ethyl Alcohol Level < 10 Stool Occult Blood Positive H Re-Evaluation Re-Evaluation : Re-Evaluation: Improved Progress Patient was seen and examined. Patient was given reassurance. The patient was found to have significant anemia history of GI bleed also hyper anticoagulation which was emergently reversed with vitamin K. patient was typed and screen and transfused. Patient's exam showed hyperactive bowel sounds which was somewhat concerning for increasing and continue bleeding. Consultation with the hospitalist as well as GI was emergently done. After stabilization some fluid was provided but mainstay of treatment was blood transfusions. Initial laboratory work was concerning. WBC was 10.5 with a hemoglobin of 5 and hematocrit of 16 MCV 107. Patient's initial chemistry showed some renal insufficiency with a BUN of 48 and creatinine 1.57. LFTs were reassuring and within normal limits. Patient's anticoagulation was in excess of 8.0 for which emergent vitamin K 10 mg IV push was provided. Alcohol is negative patient is strongly guaiac positive. Patient was then admitted to the hospitalist service for further workup and care for upper GI bleed and blood loss anemia. court monitor interpretation shows normal sinus rhythm heart rate 80s, no ectopy, normal, my interpretation. Pulse oximetry monitor interpretation shows normal oxygenation at 94% room air, normal, my interpretation although a bit low EKG/XRAY/CT/US/VASC/MRI EKG : Additional Comment EXAM: DI CHEST,SINGLE VIEW Indication: Weakness Technique: Single frontal view of the chest was obtained Comparison: None FINDINGS: Lines and Tubes: None Lungs: No focal consolidation. Pleura: No effusion. No pneumothorax. Cardiomediastinal contours: Unremarkable Bones: No acute osseous abnormality. IMPRESSION: No acute cardiopulmonary disease. Electronically Signed by:BEN MAO MD Date & Time: 02/22/25 1447 Medical Decision Making Additional info obtained from: old records Differential Dx:Considerations: Include: anemia, dehydration, electrolyte imbalance, hypotension, hypovolemia, other Departure Time of Disposition: 16:27 Disposition: 09 ADMITTED INPATIENT Admitted to Inpatient Unit: yes, to hospitalist, other (Gastroenterology) Admission Level of Care: PCU with Tele Impression: Primary Impression: Anemia due to chronic blood loss Additional Impression: Upper GI bleed Condition: Critical Referrals: NO PRIMARY CARE PROVIDER (PCP) Education Educated: Patient Educated regarding: diagnosis, need for follow up Critical Care Note Total Time (mins): 90 Critical Care Note The very real possibility of a deterioration of this patient's condition required the highest level of my preparedness for sudden, emergent intervention. I provided critical care services, which included medication orders, frequent reevaluations of the patient's condition and response to treatment, ordering and reviewing test results, and discussing the case with various consultants. Excludes time spent performing separately billable procedures. The critical care time associated with the care of the patient was 90 minutes. Signature Scribe Signature: Scribed for Shaheen Sadler MD by Shantelle Benson . 02/22/25 15:54 Attestation: The note accurately reflects work and decisions made by me.Shaheen Sadler MD 02/22/25 13:46 SHAHEEN SADLER MD Feb 22, 2025 13:46 SHANTELLE GLOVER Feb 22, 2025 15:41
[2025-02-22 13:47] LABS: CREATININE 1.57 MG/DL (0.60-1.10); TOTAL CARBON DIOXIDE 27.8 MMOL/L (24-32); eCRCL 35 ML/MIN; eGFR 44 ML/MIN
[2025-02-22] MEDS: normal saline 1000ml 1,000 ML IV ONE (13:55)
[2025-02-22 14:04] LABS: BANDS% (MANUAL) 1.0 % (0-10); LYMPHOCYTES % (MANUAL) 12.0 % (21-51); METAMYLEOCYTES% (MANUAL) 1.0 % (0-0); MONOCYTES % (MANUAL) 12.0 % (2-12); NEUTROPHILS % (MANUAL) 74.0 % (42-75); NUCLEATED RED BLOOD CELLS 5 /100WBC (0-0)
[2025-02-22 14:08] LABS: PLATELET ESTIMATE NORMAL
[2025-02-22] MEDS ORDERED: AMI200T PO (14:11)
[2025-02-22] MEDS ORDERED: ALPR0.5T9 PO (14:11)
[2025-02-22 14:36] LABS: APTT 66 SECONDS (22-32)
[2025-02-22 14:41] LABS: ETHANOL < 10 MG/DL (<10)
[2025-02-22 14:43] LABS: INR > 8.0 INR
[2025-02-22] MEDS ORDERED: pantoprazole 40mg IV 80 MG in normal saline 100ml IV soln 100 ML IV ONE (15:40)
[2025-02-22] MEDS ORDERED: potassium Cl 20 mEq SR tablet PO PRN ×2 (16:45)
[2025-02-22] MEDS ORDERED: magnesium sulf-water 2g/50mL 50 ML IV PRN (16:45)
[2025-02-22] MEDS ORDERED: magnesium Cl slow-release 64mg tablet PO PRN (16:45)
[2025-02-22] MEDS ORDERED: magnesium sulf-water 4G/100mL 100 ML IV PRN (16:45)
[2025-02-22] MEDS ORDERED: potassium Cl 40MEQ/1/2NS 520ml 520 ML IV PRN (16:45)
[2025-02-22] MEDS ORDERED: ondansetron/PF 4mg/2ml inj IV PRN (16:45)
[2025-02-22] MEDS ORDERED: magnesium hydroxide 30ml (MOM) UD suspension PO PRN (16:45)
[2025-02-22] MEDS: pantoprazole 40MG/NS 100ML BAG 100 ML IV ONE (17:05)
--- NOTE | 2025-02-22 17:11 | HISTORY AND PHYSICAL-Residence ---
History & Physical Providers to CC Resident Creating Document: DHRUV NESS RES CC: GIRMA EATON MD ~ History of Present Illness Primary Medical Doctor: Dr. Smiley Reason for Admit\Complaint: Fatigue, lightheadedness History of Present Illness 69-year-old male with PMH of chronic AFib on warfarin, SSS s/p ppm, COPD, chronic HFpEF, bladder cancer, recent UGI bleed secondary to esophagitis presented to the ER with chief complaints of fatigue, drowsiness, lightheadedness, and multiple falls for the past few days In the ER patient was found to be anemic with INR of eight and was started on blood transfusions and vitamin K. patient had similar complaints in October 2024 and was having INR of 7.5 at the time and EGD showed gastritis. He had a colonoscopy couple of years ago which was normal. Is having melena for the past few months, however he is taking iron pills. Denies any bleeding manifestations. Is also complaining of intermittent shortness of breath but denies chest pain, pedal edema, palpitations had lightheadedness associated with 2-3 episodes of the falls a day for the past few days. However he did not hit his head. Denies any loss of consciousness. Block Engraver is Dr. Harrell and he said he had his INR checked sometime days ago which was normal. He does not have any recent change in his medication dose and is taking warfarin at the prescribed dose. No recent changes in his diet. Allergies: Coded Allergies: No Known Allergies (Unverified , 11/03/24) Home Medications Home Medications Active Reported Cordarone (Amiodarone HCl) 200 Mg Tablet 1 Tab PO DAILY Alprazolam 0.5 Mg Tablet 1 Tab PO BID PRN Lasix* (Furosemide) 20 Mg Tablet 1 Tab PO DAILY 30 Days Pantoprazole Sodium 40 Mg Tablet.dr 40 Mg PO BID Metoprolol Tartrate* (Metoprolol Tartrate) 50 Mg Tablet 1 Tab PO BID Warfarin Sodium 5 Mg Tablet 1 Tab PO DAILY Calcium (Calcium Carbonate) 500 Mg Tab.chew 2 Tab PO DAILY [vit c ] 500 Mg DAILY Iron (Ferrous Sulfate) 325 Mg Tablet 1 Tab PO Q12H Tramadol HCl 50 Mg Tablet 1 Tablet PO BID B-12 Dots (Cyanocobalamin) 500 Mcg Tablet 500 Mcg PO DAILY Neurontin (Gabapentin) 300 Mg Capsule 1 Tab PO BID Atorvastatin Calcium 40 Mg Tablet 1 Tab PO HS 30 Days Dilt-Xr (Diltiazem HCl) 120 Mg Capsule.cr 1 Cap PO DAILY 30 Days Past Medical History Past Medical History COPD AFib on warfarin History of UGIB secondary to esophagitis Chronic heart failure with preserved ejection fraction Bladder cancer Iron-deficiency anemia Sick sinus syndrome status post permanent pacemaker Past Surgical History Surgical History Comment s/p cholecystectomy Family History Family History: FH: cancer FATHER, FH: diabetes mellitus FHx: heart disease Past Social History Social History Comment Currently drinking 1-2 beats same and previous history of alcohol abuse senior care Smoke cigarettes like a one pack a day for the past 40 years, 40 pack years Denies illicit drug use Lives with his at his home. Independent for ADLs Smoking: Cigarettes Alcohol Use: Rarely Drug Use: Marijuana Lives with: Family Lives In: Home Occupation: retired ROS All Other Systems: Reviewed and Negative ROS ROS Constitutional: Positive for dizziness, lightheadedness, decreased appetite and fatigue HEENT: No blurring of the vision, No sore throat, epistaxis, tinnitus Cardiovascular: No chest pain/discomfort, palpitations, syncope. No pedal edema Respiratory: c/o sob, cough,, hemoptysis Gastrointestinal: No abdominal pain, nausea, vomiting. No diarrhea, constipation, positive for melena. Genitourinary: No frequency, urgency, incontinence, nocturia. No dysuria, hematuria Musculoskeletal: No arthralgia, myalgia Endocrine: Positive for fatigue, polydipsia, polyuria. No heat or cold intolerance Neurologic: No headache, vertigo. No weakness, numbness or tingling of extremities Psychiatric: No hallucinations/delusions, no anhedonia, no suicidal ideation\ Hematologic: No bleeding or bruises Reviewed in full. All negative except for pertinent positives in HPI Exam Vitals: Vital Signs Date Time Temp Pulse Resp B/P (MAP) Pulse Ox O2 Delivery O2 Flow Rate FiO2 02/22/25 16:35 97.9 70 12 88/27 02/22/25 15:15 98 0 General: General: Pleasant elderly male, ill nourished, AAO x4, not in apparent distress Head: Normocephalic with an atraumatic Eyes: Pupils- 3mm, reacting to light, conjunctiva- anicteric, appears pale Nose and throat: No polyps, septum- normal, no mucosal ulcers Neck: Supple, no lymphadenopathy, no carotid bruit Respiratory: No use of accessory muscles of respiration, bilateral decreased air entry, hyperinflated chest Cardiac: S1-S2 heard, rythm irregular, no gallop/murmur Abdomen: non distended, no tenderness, no organomegaly, bowel sounds- heard, midline vertical scar in the lower abdomen Extremities: no clubbing, no pedal edema, no deformities, peripheral pulses- 2+ Skin: warm and dry, no rash, no purpura Neuro: No focal deficit, gross cranial nerve exam- normal Diagnostic Data Last Recorded Lab Results: 02/22/25 1323 02/22/25 1323 Diagnostic Data: Laboratory Tests Test 02/22/25 13:23 Prothrombin Time 89.9 SECONDS (9.0-12.0) H INR International Normalized Ratio > 8.0 INR *H Activated Partial Thromboplast Time 66 SECONDS (22-32) H Coagulation Comments Advance Care Planning Advanced Care plannin - 30 Minutes (Code status is discussed with him and he opted for full code with his as alternate POA ) Additional Plan 69-year-old male with PMH of chronic AFib on warfarin, SSS s/p ppm, COPD, chronic HFpEF, bladder cancer, recent UGI bleed secondary to esophagitis presented to the ER with chief complaints of fatigue, drowsiness, lightheadedness, and multiple falls for the past few days. History is positive for melena however he is on p.o. iron pills. In the ER patient was found to have anemia with hemoglobin of 5.7 and supratherapeutic INR of 8 Macrocytic/dimorphic anemia -he had hemoglobin of 8.63 months ago which came down to 5.4 today MCV is 107 with RDW of 16.1 -suspect high MCV secondary to B12 or folate deficiency or alcohol use and high RDW secondary to iron-deficiency -suspect iron-deficiency secondary to GI bleed -as his blood pressures are labile we will do 2 units PRBC transfusion and recheck hemoglobin -monitor H&H q.6 -plan for transfusion if repeat hemoglobin is less than seven -follow up on iron panel, B12, folate, peripheral smear Melena Likely secondary to UGI bleed History of recent GI bleed -endoscopy done in October 2024 showed esophagitis with no active bleeding. Patient was taking NSAIDs at the time currently he denies any use of NSAIDs. -bedside hemoccult test is positive -started on Protonix 80 mg loading dose followed by 8 mg/hour infusion -Dr. Sadler ER physician consulted Dr. Linares data warehouse architect for recommendations regarding EGD. -Patient will be put NPO for now Supratherapeutic INR -INR of >8, likely secondary to warfarin. He is on warfarin 5 mg once daily -no recent changes of medications or diet however on reviewing patient's med he is on amiodarone. There is a chance of amiodarone causing elevated levels of warfarin leading to supratherapeutic INR -as he is having anemia and labile blood pressures, he received 10 mg of IV vitamin K and 2 units of FFP -monitor INR q.6 Chronic atrial fibrillation Chads Vasc-3 Sick sinus syndrome status post ppm -continue amiodarone -hold home dose of diltiazem and metoprolol in view of soft blood pressure -DC warfarin -patient is a likely candidate for watchman's procedure giving multiple complications with warfarin. We will discuss with steamer tender tomorrow morning regarding watchman's procedure ELNA -recent creatinine of 1.04, current creatinine 1.57 -Likely suspect prerenal ELAN secondary to hypovolemia/anemia -continue blood transfusion -IV fluids NS at 50 cc/hour -monitor BMP input output chart -f/u on urine studies copd, not in acute exacerbation -albuterol nebulization p.r.n. q.4h for wheeze Chronic HFpEF, not in acute exacerbation -follow up on 2D echo Code Status: Full code Line/tube: PIV DVT prophylaxis: SCD Nutrition: npo PT: yes Prognosis: Guarded Disposition: Continue care in PCU, Dhruv Ness MD IM PGY-2 resident Date of Service: Feb 22, 2025 Billing Provider: GIRMA EATON MD,DHRUV, RES Feb 22, 2025 17:11
[2025-02-22] MEDS ORDERED: albuterol 2.5 MG/3 ML nebule NEB PRN (17:45)
[2025-02-22 17:58] LABS: OCCULT BLOOD STOOL POSITIVE (Neg)
--- NOTE | 2025-02-22 18:58 | CONSULTATION REPORT - RESIDENT ---
Consult Providers to CC Resident Creating Document: JOSEROSEMARYDANIKA DENIS History of Present Illness Reason for Admit\Complaint: GI bleed History of Present Illness The patient is a 69-year-old male with significant past medical history of chronic atrial fibrillation on warfarin, sick sinus syndrome status post permanent pacemaker, COPD, chronic HFpEF, iron-deficiency anemia, and a history of upper GI bleeding secondary to esophagitis (EGD in October 2024), who presented to the ER with several days of worsening fatigue, drowsiness, lightheadedness, and multiple mechanical falls. He reports dark, tarry stools for the past few months and has been on oral iron therapy. He denies any active hematemesis, hematochezia, overt bleeding, NSAID use, or changes in diet or medication regimen. In the ER, he was noted to have significant anemia with Hgb 5.7 and elevated INR >8. There were no reported recent warfarin dose changes; however, he is on amiodarone, which likely contributed to INR elevation. Bedside occult blood test was positive. The patient received 2 units PRBC, 10 mg IV vitamin K, and 2 units FFP. A Protonix 80 mg IV bolus was initiated followed by an infusion at 8 mg/hr. He remains hemodynamically soft (BP 88/27 on presentation) but has shown some improvement post-transfusion. He denies chest pain, palpitations, or syncope, but reports intermittent shortness of breath. There is no history of syncope or trauma with the falls. He denies alcohol use currently but has prior history of use and maintains a 20-[id number]-fsug smoking history. Given history of melena, supratherapeutic INR, known esophagitis, and current anemia, recurrent UGI bleeding is suspected. We will plan for EGD tomorrow; patient is to remain NPO after midnight. Allergies: Coded Allergies: No Known Allergies (Unverified , 11/03/24) Home Medications Home Medications Active Reported Cordarone (Amiodarone HCl) 200 Mg Tablet 1 Tab PO DAILY Alprazolam 0.5 Mg Tablet 1 Tab PO BID PRN Lasix* (Furosemide) 20 Mg Tablet 1 Tab PO DAILY 30 Days Pantoprazole Sodium 40 Mg Tablet.dr 40 Mg PO BID Metoprolol Tartrate* (Metoprolol Tartrate) 50 Mg Tablet 1 Tab PO BID Warfarin Sodium 5 Mg Tablet 1 Tab PO DAILY Calcium (Calcium Carbonate) 500 Mg Tab.chew 2 Tab PO DAILY [vit c ] 500 Mg DAILY Iron (Ferrous Sulfate) 325 Mg Tablet 1 Tab PO Q12H Tramadol HCl 50 Mg Tablet 1 Tablet PO BID B-12 Dots (Cyanocobalamin) 500 Mcg Tablet 500 Mcg PO DAILY Neurontin (Gabapentin) 300 Mg Capsule 1 Tab PO BID Atorvastatin Calcium 40 Mg Tablet 1 Tab PO HS 30 Days Dilt-Xr (Diltiazem HCl) 120 Mg Capsule.cr 1 Cap PO DAILY 30 Days Past Medical History Past Medical History COPD AFib on warfarin History of UGIB secondary to esophagitis Chronic heart failure with preserved ejection fraction Bladder cancer Iron-deficiency anemia Sick sinus syndrome status post permanent pacemaker Past Surgical History Surgical History Comment Cholecystectomy Family History Family History: FH: cancer FATHER, FH: diabetes mellitus FHx: heart disease Past Social History Social History Comment Currently drinking 1-2 beats same and previous history of alcohol abuse Smoking: one pack a day for the past 40 years, 40 pack years Denies illicit drug use Lives with his at his home. Independent for ADLs ROS ROS Reviewed in full. All negative except for pertinent positive HPI. Exam Vitals: Vital Signs Date Time Temp Pulse Resp B/P (MAP) Pulse Ox O2 Delivery O2 Flow Rate FiO2 02/22/25 18:10 98.3 83 14 100/35 02/22/25 18:10 94 Room Air 02/22/25 17:11 0 General: General: Pleasant elderly male, ill nourished, AAO x4, not in apparent distress Head: Normocephalic with an atraumatic Eyes: Pupils- 3mm, reacting to light, conjunctiva- anicteric, appears pale Nose and throat: No polyps, septum- normal, no mucosal ulcers Neck: Supple, no lymphadenopathy, no carotid bruit Respiratory: No use of accessory muscles of respiration, bilateral decreased air entry, hyperinflated chest Cardiac: S1-S2 heard, rythm irregular, no gallop/murmur Abdomen: non distended, no tenderness, no organomegaly, bowel sounds- heard, midline vertical scar in the lower abdomen Extremities: no clubbing, no pedal edema, no deformities, peripheral pulses- 2+ Skin: warm and dry, no rash, no purpura Neuro: No focal deficit, gross cranial nerve exam- normal Diagnostic Data Last Recorded Lab Results: 02/22/25 1323 02/22/25 1323 Diagnostic Data: Laboratory Tests Test 02/22/25 13:23 Prothrombin Time 89.9 SECONDS (9.0-12.0) H INR International Normalized Ratio > 8.0 INR *H Activated Partial Thromboplast Time 66 SECONDS (22-32) H Coagulation Comments Additional Plan 1. UGI Bleed Likely Recurrent Hx of esophagitis-related UGIB in October 2024 Melena for several months; positive hemoccult; now Hgb 5.7 Currently on warfarin with INR >8; now receiving appropriate reversal Plan: EGD scheduled for tomorrow morning NPO after midnight Protonix 80 mg IV bolus given, continue 8 mg/hr infusion Monitor vitals, stool color, and hemodynamic response Continue H&H q6h 2. Severe Macrocytic/Dimorphic Anemia (Hgb 5.7, MCV 107, RDW 16.1) Likely mixed iron-deficiency and possible B12/folate deficiency (macrocytosis and dimorphic picture) Alcohol-related B12/folate deficiency also suspected Plan: Iron panel, B12, folate, peripheral smear ordered by the primary team Transfused 2 units PRBCs; repeat Hgb pending Transfuse further if Hgb <7 or symptomatic 3. Supratherapeutic INR (>8) Likely due to warfarinamiodarone interaction No dietary or dose changes Received 10 mg IV vitamin K and 2 units FFP in ED Plan: Hold warfarin Monitor INR q6h Consult cardiology re: long-term anticoagulation alternative (e.g., Watchman procedure) 4. Lightheadedness, Falls Likely multifactorial: anemia + hypotension + over-anticoagulation No head trauma or LOC Orthostatic hypotension suspected Plan: Continue fluid resuscitation Monitor orthostatic vitals PT/OT evaluation for fall prevention 5. ELAN (Cr to 1.57 from 1.04) Likely prerenal from hypovolemia secondary to blood loss Plan: IV fluids (NS @ 50 cc/hr) Monitor I/Os, daily weights Repeat BMP 6. Chronic AFib with SSS s/p PPM Hold diltiazem and metoprolol given hypotension Continue amiodarone Coal Yard Supervisor (Dr. Harrell) to evaluate for long-term management plan 7. COPD & HFpEF Stable Not in acute exacerbation Plan: Albuterol nebulization PRN Follow-up echocardiogram Code Status Full code Disposition Continue inpatient monitoring in PCU GI to perform EGD tomorrow a.m. Prognosis: Guarded, depending on bleeding source and clinical stability Adeel Rios MD Internal Medicine Resident, PGY-2 Date of Service: Feb 22, 2025 Billing Provider: LORRIE HER MD,ADEEL, RES Feb 22, 2025 18:58
[2025-02-22] MEDS: K and/or MAG REPLACEMENT MC SCH (19:24)
[2025-02-22 20:15] LABS: MEAN PLATELET VOLUME 6.7 FL (7.4-10.4); RED CELL DISTRIBUTION WIDTH 17.3 % (11.5-14.5)
[2025-02-22] MEDS: phytonadione inj. 10 MG in normal saline 100ml IV soln 100 ML IV ONE (20:31)
[2025-02-22 20:39] LABS: INR > 8.0 INR
[2025-02-23] VITALS (21 sets, daily range): BP systolic 78–123; BP diastolic 30–73; PULSE 70–81; RESP 10–20; TEMP 97.1–98.8; O2SAT 90–98
[2025-02-23] MEDS ORDERED: NORMAL SALINE IV ONE (00:55)
[2025-02-23] MEDS ORDERED: PHYTONADIONE IV ONE (00:55)
[2025-02-23] MEDS: midodrine 5mg tablet PO SCH (01:07)
--- NOTE | 2025-02-23 01:38 | ELECTROCARDIOGRAPH REPORT ---
[facility] Test Date: 2025-02-23 Test Time: 01:37:15 Pat Name: SAILAJA HUI Department: 3rd FLOOR PCU Room: [place] [id number] A Gender: M Cad Programmer: : [id number] Requested By: RAVI TRUONG Order Number: [id number] Reading MD: Dr. JERRY Harrell Measurements Intervals [place] Rate: 70 P: 0 MO: 183 QRS: 76 QRSD: 100 T: 86 QT: 435 QTc: 470 Interpretive Statements Atrial-paced complexes Nonspecific T abnrm, anterolateral leads Artifact in lead(s) V3 Electronically Signed On 02-23-2025 16:38:[address] JERRY Harrell Please click the below link to view image of tracing.
[2025-02-23 02:20] LABS: MEAN PLATELET VOLUME 6.9 FL (7.4-10.4); RED CELL DISTRIBUTION WIDTH 17.3 % (11.5-14.5)
[2025-02-23 02:32] LABS: % IRON SATURATION 7 % (11-46)
[2025-02-23 02:33] LABS: APTT 40 SECONDS (22-32); INR 2.8 INR
[2025-02-23 02:46] LABS: CREATININE 1.43 MG/DL (0.60-1.10); TOTAL CARBON DIOXIDE 28.9 MMOL/L (24-32); eCRCL 38 ML/MIN; eGFR 49 ML/MIN
[2025-02-23 02:49] LABS: EOSINOPHILS % (MANUAL) 3.0 % (0-6); LYMPHOCYTES % (MANUAL) 14.0 % (21-51); MONOCYTES % (MANUAL) 9.0 % (2-12); NEUTROPHILS % (MANUAL) 74.0 % (42-75); NUCLEATED RED BLOOD CELLS 5 /100WBC (0-0)
[2025-02-23 02:50] LABS: PLATELET ESTIMATE NORMAL
[2025-02-23 09:44] LABS: MEAN PLATELET VOLUME 6.7 FL (7.4-10.4); RED CELL DISTRIBUTION WIDTH 17.3 % (11.5-14.5)
[2025-02-23] MEDS ORDERED: propofol inj 20 ML IV ONE (11:22)
[2025-02-23 14:26] LABS: MEAN PLATELET VOLUME 6.6 FL (7.4-10.4); RED CELL DISTRIBUTION WIDTH 17.2 % (11.5-14.5)
--- NOTE | 2025-02-23 16:34 | HISTORY AND PHYSICAL-Residence ---
History & Physical Providers to CC Resident Creating Document: LUIS ANTONIO RETANA, RES CC: KAYY WAGNER MD ~ History of Present Illness Primary Medical Doctor: Dr. Smiley Reason for Admit\Complaint: Fatigue, lightheadedness History of Present Illness A 69-year-old male with past medical history of chronic AFib on warfarin status post pacemaker placement, chronic HFpEF and recent upper GI bleed presented to the ED in view of fatigue, dizziness lightheadedness and multiple falls with the past few days. In the ER, patient was found to be anemic with INR of eight. Blood transfusions and vitamin K for reversal of INR was done in the ER. In October 2024 patient had INR of 7.5. Due to fluctuating INR cardiology is consulted in view of further evaluation. Allergies: Coded Allergies: No Known Allergies (Unverified , 11/03/24) Home Medications Home Medications Active Reported Cordarone (Amiodarone HCl) 200 Mg Tablet 1 Tab PO DAILY Alprazolam 0.5 Mg Tablet 1 Tab PO BID PRN Lasix* (Furosemide) 20 Mg Tablet 1 Tab PO DAILY 30 Days Pantoprazole Sodium 40 Mg Tablet.dr 40 Mg PO BID Metoprolol Tartrate* (Metoprolol Tartrate) 50 Mg Tablet 1 Tab PO BID Warfarin Sodium 5 Mg Tablet 1 Tab PO DAILY Calcium (Calcium Carbonate) 500 Mg Tab.chew 2 Tab PO DAILY [vit c ] 500 Mg DAILY Iron (Ferrous Sulfate) 325 Mg Tablet 1 Tab PO Q12H Tramadol HCl 50 Mg Tablet 1 Tablet PO BID B-12 Dots (Cyanocobalamin) 500 Mcg Tablet 500 Mcg PO DAILY Neurontin (Gabapentin) 300 Mg Capsule 1 Tab PO BID Atorvastatin Calcium 40 Mg Tablet 1 Tab PO HS 30 Days Dilt-Xr (Diltiazem HCl) 120 Mg Capsule.cr 1 Cap PO DAILY 30 Days Past Medical History Past Medical History COPD AFib on warfarin History of UGIB secondary to esophagitis Chronic heart failure with preserved ejection fraction Bladder cancer Iron-deficiency anemia Sick sinus syndrome status post permanent pacemaker Past Surgical History Surgical History Comment Status post cholecystectomy Family History Family History: FH: cancer FATHER, FH: diabetes mellitus MOTHER, FHx: heart disease Past Social History Social History Comment Currently drinking 1-2 beats same and previous history of alcohol abuse custodial Smoke cigarettes like a one pack a day for the past 40 years, 40 pack years Denies illicit drug use Lives with his at his home. Smoking: Cigarettes Alcohol Use: Rarely Drug Use: Marijuana Lives with: Family Lives In: Home Occupation: retired Exam Vitals: Vital Signs Date Time Temp Pulse Resp B/P (MAP) Pulse Ox O2 Delivery O2 Flow Rate FiO2 02/23/25 12:08 70 13 102/61 98 Room Air 02/23/25 11:40 4.0 02/23/25 11:00 97.1 02/22/25 19:39 21 General: General: Alert, awake, oriented, not in acute distress HEENT: PERRLA, no icterus, pallor, lymphadenopathy, carotid bruit Respiratory system: Bilateral vesicular breath sounds heard, no adventitious breath sounds CVS: S1-S2 heard, no murmurs/rubs/gallop GI: Soft, nontender, no organomegaly, no guarding/rigidity, bowel sounds present Neuro: No focal neurological deficits present Extremities: No edema cyanosis clubbing/deformities Skin: Warm and dry Diagnostic Data Last Recorded Lab Results: 02/23/25 1407 02/23/25 0200 Diagnostic Data: Laboratory Tests Test 02/23/25 02:00 Prothrombin Time 26.1 SECONDS (9.0-12.0) H INR International Normalized Ratio 2.8 INR # Activated Partial Thromboplast Time 40 SECONDS (22-32) H Coagulation Comments Additional Plan Assessment: A 69-year-old male with multiple medical comorbidities presented to the ER in view of fatigue dose in his and generalized weakness. In the ER patient was found to have low hemoglobin and elevated INR. Rolfer consulted in view of elevated INR and fluctuating INR with the past few days. Plan: Supratherapeutic INR At the time of admission, INR: Eight Reversal with vitamin K was done Currently in therapeutic range Advised to monitor INR effectively Patient had mentioned logistic issues with monitoring INR Discussions about other anticoagulants have been made with the patient and his while on the phone, this seemed to be disinterested in the assumption of increased bleeding. With the patient is noncompliant with monitoring INR, further discussions in a convincing manner could be done about other anticoagulation like Pradaxa or Xarelto that could be started on low doses Chronic HFpEF, not in acute exacerbation Optimization with GDM T Echo: EF: 50-55% (08/17 Repeat echo Chronic atrial fibrillation [id number]: 3 Sick sinus syndrome status post ppm Continue amiodarone Discussion about continuous monitoring of INR versus starting other anticoagulant agents required Code status: Full code Diet: Heart healthy Anticoagulation: Warfarin Luis Antonio Retana MD Internal Medicine, PGY 2 Patient seen and examined by Dr. GUARDADO. Patient known to me from my office practice. His is in [employer] discussed about the situation. Patient still wants to use MD INR and try to regulate his Coumadin levels better. He is trying to acquire the machine. Other options with Pradaxa and Xarelto were also discussed with patient. Date of Service: Feb 23, 2025 Billing Provider: KAYY WAGNER MD, SIVA, RES Feb 23, 2025 16:34 KAYY WAGNER MD Feb 24, 2025 09:40
[2025-02-23] MEDS ORDERED: PERFLUTREN PROTEIN-A MICROSPHR (Optison) 0.22 MG/ML 3ML VIAL IV ONE (16:35)
--- NOTE | 2025-02-23 16:36 | PROGRESS NOTE- Residence ---
Progress Note - Resident Providers to CC Resident Creating Document: DHRUV NESS RES CC: SHIRLEY SEARS DO ~ Central Line/PICC still needed: N\A Antibiotic Timeout Antibiotic Ordered?: No Subjective No new complaints. Undergone EGD today and said he feels much better since then. Objective Vital Signs Date Time Temp Pulse Resp B/P (MAP) Pulse Ox O2 Delivery O2 Flow Rate FiO2 02/23/25 12:08 70 13 102/61 98 Room Air 02/23/25 11:40 4.0 02/23/25 11:00 97.1 02/22/25 19:39 21 Result Diagram: 02/23/25 1407 02/23/25 0200 General: Pleasant elderly male, ill nourished, AAO x4, not in apparent distress Head: Normocephalic with an atraumatic Eyes: Pupils- 3mm, reacting to light, conjunctiva- anicteric, appears pale Nose and throat: No polyps, septum- normal, no mucosal ulcers Neck: Supple, no lymphadenopathy, no carotid bruit Respiratory: No use of accessory muscles of respiration, bilateral decreased air entry, hyperinflated chest Cardiac: S1-S2 heard, rythm irregular, no gallop/murmur Abdomen: non distended, no tenderness, no organomegaly, bowel sounds- heard, midline vertical scar in the lower abdomen Extremities: no clubbing, no pedal edema, no deformities, peripheral pulses- 2+ Skin: warm and dry, no rash, no purpura Neuro: No focal deficit, gross cranial nerve exam- normal Coagulation Studies Laboratory Tests Test 02/23/25 02:00 Prothrombin Time 26.1 SECONDS (9.0-12.0) H INR International Normalized Ratio 2.8 INR # Activated Partial Thromboplast Time 40 SECONDS (22-32) H Coagulation Comments Assessment Assessment 69-year-old male with PMH of chronic AFib on warfarin, SSS s/p ppm, COPD, chronic HFpEF, bladder cancer, recent UGI bleed secondary to esophagitis presented to the ER with chief complaints of fatigue, drowsiness, lightheadedness, and multiple falls for the past few days. History is positive for melena however he is on p.o. iron pills. In the ER patient was found to have anemia with hemoglobin of 5.7 and supratherapeutic INR of 8 Plan Plan Macrocytic/dimorphic anemia -he had hemoglobin of 8.6,3 months ago which came down to 5.4, and improved to 8.1 after one PRBC transfusion -suspect high MCV secondary to B12 or folate deficiency or alcohol use and high RDW secondary to iron-deficiency -serum iron low, TIBC normal, TSAT low, ferritin low normal -suspect iron-deficiency secondary to GI bleed -peripheral smear is positive for spherocytes, nucleated RBC which could be seen in hemolytic anemia, cold agglutinin disease, bone marrow infiltration -workup initiated for hemolytic anemia including LDH, haptoglobin and reticulocyte count, pending B12 -monitor H&H q.8 -plan for transfusion if repeat hemoglobin is less than seven - Venofer 300 Mg IV daily x 3 days Melena Likely secondary to UGI bleed History of recent GI bleed -endoscopy done in October 2024 showed esophagitis with no active bleeding. Patient was taking NSAIDs at the time currently he denies any use of NSAIDs. -bedside hemoccult test is positive -undergone EGD on 02/23 which showed small hiatal hernia, congested and erythematous mucosa in the gastric body and antrum, and duodenal mass which was biopsied -DC Protonix GTT and changed to IV Protonix 40 mg b.i.d. Supratherapeutic INR -INR of >8, likely secondary to warfarin. He is on warfarin 5 mg once daily -no recent changes of medications or diet however on reviewing patient's med he is on amiodarone. There is a chance of amiodarone causing elevated levels of warfarin leading to supratherapeutic INR -INR came down to 2.8 after receiving vitamin K and FFP Chronic atrial fibrillation Chads Vasc-3 Sick sinus syndrome status post ppm -continue amiodarone -hold home dose of diltiazem and metoprolol in view of soft blood pressure -DC warfarin -consulted Dr. Harrell cardiology awaiting further recommendations regarding watchman's procedure and initiation of other anticoagulation ELAN -baseline creatinine of 1.04, creatinine down to 1.4 to from 1.57 -Likely suspect prerenal ELAN secondary to hypovolemia/anemia -continue blood transfusion -IV fluids LR at 50 cc/hour -monitor BMP input output chart -f/u on urine studies copd, not in acute exacerbation -albuterol nebulization p.r.n. q.4h for wheeze Chronic HFpEF, not in acute exacerbation -follow up on 2D echo Code Status: Full code Line/tube: PIV DVT prophylaxis: SCD Nutrition: Heart healthy diet PT: yes Prognosis: Guarded Disposition: Continue care in PCU, PT pending, cardiology consult pending Dhruv Ness MD PGY-3 resident Date of Service: Feb 23, 2025 Billing Provider: SHIRLEY SEARS DO Common Visit Codes: [id number] INP/OBS CARE(HIGH) DHRUV NESS, RES Feb 23, 2025 16:36 SHIRLEY SEARS DO Feb 23, 2025 17:53
[2025-02-23] MEDS: ringers solution, lacted 1,000 ML IV SCH (16:45)
[2025-02-23 20:21] LABS: MEAN PLATELET VOLUME 6.9 FL (7.4-10.4); RED CELL DISTRIBUTION WIDTH 17.4 % (11.5-14.5)
[2025-02-24 02:00] VITALS: BP 99/59; PULSE 73; RESP 20; TEMP 98.2; O2SAT 93
[2025-02-24 05:31] LABS: ABSOLUTE RETICS # 213600 /CUMM (23000-93000); MEAN PLATELET VOLUME 6.5 FL (7.4-10.4); RED CELL DISTRIBUTION WIDTH 18.2 % (11.5-14.5)
[2025-02-24 05:41] LABS: APTT 31 SECONDS (22-32); INR 1.4 INR
[2025-02-24 05:48] LABS: CREATININE 1.29 MG/DL (0.60-1.10); LACTATE DEHYDROGENASE 148 U/L (85-227); TOTAL CARBON DIOXIDE 25.6 MMOL/L (24-32); eCRCL 43 ML/MIN; eGFR 55 ML/MIN
[2025-02-24 06:00] VITALS: BP 114/50; PULSE 70; RESP 12; TEMP 97.5; O2SAT 91
[2025-02-24 06:56] LABS: EOSINOPHILS % (MANUAL) 1.0 % (0-6); LYMPHOCYTES % (MANUAL) 23.0 % (21-51); MONOCYTES % (MANUAL) 12.0 % (2-12); NEUTROPHILS % (MANUAL) 64.0 % (42-75); NUCLEATED RED BLOOD CELLS 10 /100WBC (0-0); PLATELET ESTIMATE NORMAL
[2025-02-24] MEDS: iron sucrose complex injection 300 MG in normal saline 250ml IV soln 250 ML IV SCH (07:16)
[2025-02-24 08:00] VITALS: BP_SYST 106; BP_SYST 93; BP_SYST 99; BP_DIAS 48; BP_DIAS 52; PULSE 69; PULSE 76; PULSE 77; RESP 12; O2SAT 91
[2025-02-24 08:51] VITALS: PULSE 70; RESP 20; O2SAT 90
--- NOTE | 2025-02-24 09:36 | CARDIOLOGY REPORT ---
APPROVED REPORT EXAM: Comprehensive 2D, Doppler, and color-flow Echocardiogram. Patient Location: [facility] Blood Pressure: 103/41 mmHg Heart Rate: 74 bpm Indications Congestive Heart Failure Atrial Fibrillation CVA/TIA Hypertension Pacemaker FEED BLENDER: Delaney Harrell MD Previous ECHO: 08/14/24, [facility], EF: 50-55; modRVE/LAE; mMR/TR 2D Dimensions LA Diam4.2 cm IVSd 0.8 (0.7-1.1cm) LVDd 5.1 cm PWd 0.7 (0.7-1.1cm) IVSs 1.0 (0.8-1.2cm) LVDs 3.2 (2.5-4.0cm) PWs 1.6 (0.8-1.2cm) LVOT Diameter 1.98 (1.8-2.4cm) LVEF(%) 67.3 (>50%) Ao Asc Diam.2.86 cm IVC 15.31 mmFS (%) 37.6 % SV 83.3 ml CO 6.2 L/min M-Mode Dimensions Left Atrium(MM) 3.41 (2.5-4.0cm) Aortic Root 3.12 (2.2-3.7cm) Aortic Cusp Exc 1.85 (1.5-2.0cm) MV EPSS 0.2 (<0.5cm) Aortic Valve AoV Peak Don. 166.6 cm/s AoV VTI 36.8 cm AO Peak GR. 11.1 mmHg AO Mean GR. 6 mmHg LVOT VTI 29.49 cm LVOT Peak Don. 139.6 cm/s AGUSTIN(VTI)/BSA 2.46 cm2/m2 AGUSTIN (VTI) 2.46 cm2 Mitral Valve MV E Velocity 75.8 cm/s MV Peak Gr. 4 mmHg MV DECEL TIME 224 ms MV A Velocity 70.8 cm/s MV PHT 84 ms E/A Ratio 1.1 MVA (PHT) 2.62 cm2 MV VMax98.2 cm/s TDI Lateral E' P. V17.15 cm/s E/Lateral E' 4.4 Tricuspid Valve TR P. Velocity 310 cm/s RAP ESTIMATE 10 mmHg TR Peak Gr. 38 mmHg RVSP 48 mmHg LEFT VENTRICLE Normal LV size and wall thickness. Overall systolic function is normal. Overall LVEF is 65-70%. RIGHT VENTRICLE Right ventricle is mildly dilated with adequate function. ATRIA Left atrium is mildly dilated. Pacemaker lead is present in the right heart. AORTIC VALVE Trileaflet AV appears mildly sclerotic without stenosis. No insufficiency. MITRAL VALVE Mitral valve leaflets are mildly thickened with mild annular calcification. No stenosis. Mild regurgi tation. TRICUSPID VALVE The tricuspid valve is normal in structure with mild regurgitation. PULMONIC VALVE Pulmonic valve is grossly normal in structure with physiologic insufficiency. GREAT VESSELS The aortic root is normal in size. The ascending aorta is normal in size. The IVC is normal in size a nd collapses >50% with inspiration. PERICARDIUM Normal pericardium. No effusion. Other Information Study Quality: Adequate Conclusion Overall LVEF is 65-70%. Normal LV size and wall thickness. Overall systolic function is normal. Right ventricle is mildly dilated with adequate function. Trileaflet AV appears mildly sclerotic without stenosis. No insufficiency. Mitral valve leaflets are mildly thickened with mild annular calcification. No stenosis. Mild regur gitation. The tricuspid valve is normal in structure with mild regurgitation. Pulmonic valve is grossly normal in structure with physiologic insufficiency. Normal pericardium. No effusion.
[2025-02-24 11:00] VITALS: BP 111/58; PULSE 71; RESP 16; TEMP 97.3; O2SAT 92
--- NOTE | 2025-02-24 11:07 | PROGRESS NOTE- Residence ---
Progress Note - Resident Providers to CC Resident Creating Document: LUIS ANTONIO TELLEZ RES CC: KAYY WAGNER MD ~ Antibiotic Timeout Antibiotic Ordered?: No Subjective Patient examined at bedside. Patient does not have any subjective complaints or acute overnight events. Patient states that he feels relatively better compared to yesterday. Objective Vital Signs Date Time Temp Pulse Resp B/P (MAP) Pulse Ox O2 Delivery O2 Flow Rate FiO2 02/24/25 08:51 70 20 90 Room Air* 0 21 02/24/25 08:00 93/48 (63) 106/52 (70) 99/48 (65) 02/24/25 06:00 97.5 Result Diagram: 02/24/25 0505 02/24/25 0505 General: Alert, awake, oriented, not in acute distress HEENT: PERRLA, no icterus, pallor, lymphadenopathy, carotid bruit Respiratory system: Bilateral vesicular breath sounds heard, no adventitious breath sounds CVS: S1-S2 heard, no murmurs/rubs/gallop GI: Soft, nontender, no organomegaly, no guarding/rigidity, bowel sounds present Neuro: No focal neurological deficits present Extremities: No edema cyanosis clubbing/deformities Skin: Warm and dry Coagulation Studies Laboratory Tests Test 02/24/25 05:05 Prothrombin Time 14.1 SECONDS (9.0-12.0) H INR International Normalized Ratio 1.4 INR # Activated Partial Thromboplast Time 31 SECONDS (22-32) Coagulation Comments Assessment Assessment A 69-year-old male with multiple medical comorbidities presented to the ER in view of fatigue dose in his and generalized weakness. In the ER patient was found to have low hemoglobin and elevated INR. Staff Sonographer consulted in view of elevated INR and fluctuating INR with the past few days. Plan Plan Supratherapeutic INR INR: 1.4 Discussions about other anticoagulants have been made with the patient and his while on the phone, they seemed to be disinterested in the assumption of increased bleeding. Repeat discussions held with the and the patient, continued disinterest with apixaban. If to resume warfarin consider lower doses than the current. Patient can be on Eliquis 2.5 mg b.i.d. if they changed their mind. Chronic HFpEF, not in acute exacerbation Continue Optimization with GDM T Echo: EF: 70% (02/23/2025) Chronic atrial fibrillation [id number]: 3 Sick sinus syndrome status post ppm Continue amiodarone Discussion about continuous monitoring of INR versus starting other anticoagulant agents done Please see above Code status: Full code Diet: Heart healthy Anticoagulation: Warfarin Disposition: Resume warfarin. Discharge plan per hospitalist team Luis Antonio Tellez MD Internal Medicine, PGY 2 Patient seen and examined by Dr. Liv WOLF Date of Service: Feb 24, 2025 Billing Provider: KAYY WAGNER MD, SIVA, RES Feb 24, 2025 11:07 KAYY WAGNER MD Feb 24, 2025 16:36
[2025-02-24 15:00] VITALS: BP 111/44; PULSE 70; RESP 26; TEMP 97.5; O2SAT 93
[2025-02-24] MEDS ORDERED: RIVA15TA PO (16:37)
--- NOTE | 2025-02-24 18:08 | DISCHARGE SUMMARY-Residence ---
Discharge Summary Providers to CC Resident Creating Document: DHRUV NESS RES CC: SHIRLEY SEARS DO ~ Discharge Summary Assessment 69-year-old male with PMH of chronic AFib on warfarin, SSS s/p ppm, COPD, chronic HFpEF, bladder cancer, recent UGI bleed secondary to esophagitis presented to the ER with chief complaints of fatigue, drowsiness, lightheadedness, and multiple falls for the past few days. History is positive for melena however he is on p.o. iron pills. In the ER patient was found to have anemia with hemoglobin of 5.7 and supratherapeutic INR of 8 Admission Diagnosis: SEVERE ANEMIA, COAGULOPATHY Hospital Course DATE OF ADMISSION: 02/22/2025 DATE OF DISCHARGE: 02/24/2025 Discharge Diagnosis\Comment: Macrocytic/dimorphic anemia secondary to iron deficiency Iron-deficiency secondary to upper GI bleed Esophagitis and duodenal mass-biopsy pending Supratherapeutic INR resolved Chronic atrial fibrillation with CVR CHADS-VASc three Sick sinus syndrome status post permanent pacemaker ELAN likely prerenal secondary to hypovolemia resolved COPD not in acute exacerbation Chronic heart failure with preserved ejection fraction not in acute exacerbation Operations\Procedures: EGD done by Dr. Ibarra, GI on 02/23/2025 Consultants: Dr. Ibarra, GI Dr. Harrell, cardiology Complications: None Condition on DC: Stable New Medications: Rivaroxaban (Xarelto) 15 Mg Tab 1 TAB PO DAILY for 30 Days, #30 TAB 0 Refills Continued Medications: Alprazolam (Alprazolam) 0.5 Mg Tablet 1 TAB PO BID PRN for anxiety Amiodarone Hcl (Cordarone) 200 Mg Tablet 1 TAB PO DAILY Atorvastatin Calcium (Atorvastatin Calcium) 40 Mg Tablet 1 TAB PO HS for 30 Days, #30 TAB Calcium Carbonate (Calcium) 500 Mg Tab.chew 2 TAB PO DAILY, TAB 0 Refills Cyanocobalamin (B-12 Dots) 500 Mcg Tablet 500 MCG PO DAILY, TAB Ferrous Sulfate (Iron) 325 Mg Tablet 1 TAB PO Q12H, TAB 0 Refills Furosemide* (Lasix*) 20 Mg Tablet 1 TAB PO DAILY for 30 Days, #30 TAB Gabapentin (Neurontin) 300 Mg Capsule 1 TAB PO BID Pantoprazole Sodium (Pantoprazole Sodium) 40 Mg Tablet.dr 40 MG PO BID, TAB.SR Tramadol HCl (Tramadol HCl) 50 Mg Tablet 1 TABLET PO BID [vit c ] () 500 MG DAILY Discontinued Medications: Diltiazem HCl (Dilt-Xr) 120 Mg Capsule.cr 1 CAP PO DAILY for 30 Days, #30 CAP 0 Refills Metoprolol Tartrate* (Metoprolol Tartrate*) 50 Mg Tablet 1 TAB PO BID Warfarin Sodium (Warfarin Sodium) 5 Mg Tablet 1 TAB PO DAILY Discharge Summary: 69-year-old male with PMH of chronic AFib on warfarin, SSS s/p ppm, COPD, chronic HFpEF, bladder cancer, recent UGI bleed secondary to esophagitis present ed to the ER with chief complaints of fatigue, drowsiness, lightheadedness, and multiple falls for the past few days. History is positive for melena however he is on p.o. iron pills. In the ER patient was found to have anemia with hemoglobin of 5.7 and supratherapeutic INR of 8 Hospital course -patient was admitted for anemia and he got two PRBC transfusions. His stool for occult blood test is positive and he had undergone EGD on 02/23 which showed small hiatal hernia, congested and erythematous mucosa in the gastric body and antrum, and duodenal mass which was biopsied. Received Protonix drip which was then changed to 40 mg Protonix b.i.d. -iron indices showed iron-deficiency anemia with low saturation and he was started on IV Venofer. peripheral smear was positive for cirrhosis nucleated RBCs and workup for hemolytic anemia showed LDH normal with increased reticulocyte count which could be seen in blood loss anemia -he also received vitamin K and FFP is for supratherapeutic INR of eight which came down to 1.3 on day three of admission. -held his warfarin at the time of admission and after multiple discussions with the patient his and his train controller Dr. Harrell shared decision- making of rivaroxaban 15 mg once daily is started. He is aware of the risk of the bleeding and benefits of anticoagulation -he had ELAN and creatinine was improved after hydration -during his hospitalization COPD and heart failure with preserved ejection fraction remained stable -he is hemodynamically stable and his physical condition at the time of discharge is as follows General: Pleasant elderly male, ill nourished, AAO x4, not in apparent distress Head: Normocephalic with an atraumatic Eyes: Pupils- 3mm, reacting to light, conjunctiva- anicteric, appears pale Nose and throat: No polyps, septum- normal, no mucosal ulcers Neck: Supple, no lymphadenopathy, no carotid bruit Respiratory: No use of accessory muscles of respiration, bilateral decreased air entry, hyperinflated chest Cardiac: S1-S2 heard, rythm irregular, no gallop/murmur Abdomen: non distended, no tenderness, no organomegaly, bowel sounds- heard, midline vertical scar in the lower abdomen Extremities: no clubbing, no pedal edema, no deformities, peripheral pulses- 2+ Skin: warm and dry, no rash, no purpura Neuro: No focal deficit, gross cranial nerve exam- normal Labs at discharge -cbc- H&H 7.6/22.1, WBC 10, platelet 248 -INR 1.4 -cmp- sodium 138, potassium 3.7, BUN 25, creatinine 1.29 -serum iron 20, TIBC 274, T said seven, transferrin 205, ferritin 43, vitamin B12 1032 -bilirubin 0.7, AST/ALT/ALP 30/30/63, LDH 148 Echocardiogram on 02/24/2025 Conclusion Overall LVEF is 65-70%. Normal LV size and wall thickness. Overall systolic function is normal. Right ventricle is mildly dilated with adequate function. Trileaflet AV appears mildly sclerotic without stenosis. No insufficiency. Mitral valve leaflets are mildly thickened with mild annular calcification. No stenosis. Mild regurgitation. The tricuspid valve is normal in structure with mild regurgitation. Pulmonic valve is grossly normal in structure with physiologic insufficiency. Normal pericardium. No effusion. Discharge medications can be found above and he is sent home with the following recommendations Please follow up with your PCP within a week of the discharge F/U with your train controller Dr. Harrell, within a week and discuss regarding the watchmans procedure You need to repeat your cbc in a week, and ask your PCP regarding the iron injections Take protonix 40 mg twice daily, and take iron tablets as prescribed recommended to measure blood pressures at home, as your blood pressures were low, we stopped your diltiazem and metoprolol follow up with Dr. Ibarra, steam cleaning machine operator regarding the duodenal mass biopsy report return to the ER in case of hematemesis, melena The patient felt ready to be discharged and was medically cleared to be discharged on 02/24/2025 The patient was seen and evaluated on day of discharge. Time spent on discharge 40 minutes *Problems/Diagnosis: (1) Symptomatic anemia Status: Acute (2) Upper GI bleed Status: Acute Total Time Spent on D/C: > 30 Minutes Date of Service: Feb 24, 2025 Billing Provider: SHIRLEY SEARS DO Common Visit Codes: 90358-QDD/OBS DISCH DAY >30min DHRUV NESS, RES Feb 24, 2025 17:29 SHIRLEY SEARS DO Feb 24, 2025 19:12
== END 2025-02-24 17:40 | disposition home or self-care (01) | DRG 369 ==
LOC: ER 13:03 → ED HOLD 15:47 → PCU 3S 17:55
PROVIDERS: ADMIT Family Medicine; ATTEND Family Medicine
PROC: 30233N1 Transfusion of Nonautologous Red Blood Cells into Peripheral Vein, Percutaneous Approach (ICD-10-PCS; 2025-02-22)
PROC: 30233K1 Transfusion of Nonautologous Frozen Plasma into Peripheral Vein, Percutaneous Approach (ICD-10-PCS; 2025-02-22)
PROC: 0DB78ZX Excision of Stomach, Pylorus, Via Natural or Artificial Opening Endoscopic, Diagnostic (ICD-10-PCS; 2025-02-23)
PROC: 0DB68ZX Excision of Stomach, Via Natural or Artificial Opening Endoscopic, Diagnostic (ICD-10-PCS; principal; 2025-02-23 11:02)
DX: K20.91 Esophagitis, unspecified with bleeding (principal); I48.20 Chronic atrial fibrillation, unspecified; I50.32 Chronic diastolic (congestive) heart failure; N17.9 Acute kidney failure, unspecified; D50.0 Iron deficiency anemia secondary to blood loss (chronic); J44.9 Chronic obstructive pulmonary disease, unspecified; E86.1 Hypovolemia; I11.0 Hypertensive heart disease with heart failure; K44.9 Diaphragmatic hernia without obstruction or gangrene; K31.89 Other diseases of stomach and duodenum; Z90.81 Acquired absence of spleen; Z79.899 Other long term (current) drug therapy; Z86.73 Personal history of transient ischemic attack (TIA), and cerebral infarction without residual deficits; Z95.0 Presence of cardiac pacemaker; Z83.3 Family history of diabetes mellitus
CPT/HCPCS: 36415; 36430; 43239; 80048; 80053; 80076; 80320; 82272; 82607; 82728; 83010; 83540; 83550; 83615; 83735; 84439; 84443; 84466; 84484; 85007; 85025; 85027; 85045; 85610; 85730; 86870; 86885; 86900; 86901; 86902; 86905; 86920; 86922; 87081; 93005; 93306; 94760; 96361; 96374; 97116; 97161; 97530; 99291; 99292; A4620; G0378; J1756; J2470; J2704; J3430; J7030; J7040; J7050; J7120; P9016; P9059